=== PATIENT | female | born 1940 | race Caucasian/White ===

== ENCOUNTER 2023-06-17 19:11 | Inpatient (IN) | payer MEDICARE, OTHER, SELFPAY ==
[2023-06-17 16:00] VITALS: BP 157/73
[2023-06-17 16:05] VITALS: BMI 24.6
--- NOTE | 2023-06-17 16:24 | ED.GENMED ---
History of Present Illness
<INDU Hough Jr. Last Filed: 06/17/23 20:00>
General
Chief Complaint: Musculo-Skeletal Complaint
Source: patient
Exam Limitations: none
Time Seen by Provider: 06/17/23 16:08
Nursing documentation reviewed up to this point in time: agreed with
Travel History
Have you had any contact with someone who has COVID-19?: No
Do you have any symptoms of coronavirus? Fever > 100 degrees, chills, cough, shortness of breath, sore throat, loss of taste or smell, muscle aches, or headache?: No
History of Present Illness
History of Present Illness:
82-year-old female past medical history of previous VT, stent placement in the past, hyperlipidemia presenting to the emergency department today with concerns of a fall after tripping over something in her laundry room she lightly hit the back of
her head as well as hit her right knee denies the ambulating to the comfort. Denies significant neck pain no loss of consciousness denies taking blood thinners other than aspirin.
Past History
<INDU Hough Jr. Last Filed: 06/17/23 20:00>
Past History
ED Past Medical History: Cancer (kidney), GERD (esophogeal restrictions), Hypercholesterolemia and Other (Osteoporosis, PNA, Bowel obstruction, esophageal strictures, hiatal hernia, Multiple body fractures)
ED Past Surgical History: Appendectomy, Cholecystectomy, (X 2), Orthopedic, Urological (left kidney removed for CA) and Other (hemorrhoidectomy)
Social History
Tobacco: Former smoker
Alcohol: None
Drug: None
Personal:
Living: alone
Family History
Family History: Other
Review of Systems
<INDU Hough Jr. Last Filed: 06/17/23 20:00>
Review of Systems
Allergies reviewed?: Yes
All Other Systems: ROS reviewed and negative except as documented in HPI and ROS
Phy Exam
<Chet Montalvo Jr., PA-C - Last Filed: 06/17/23 20:00>
Physical Exam
Physical Exam:
GENERAL: Alert , in no apparent distress
EYE: pupils equal and reactive
NECK: Supple, no significant adenopathy.
ENT: o/p clr, mmm.
CARDIAC: Regular rate and rhythm .
LUNGS: Clear breath sounds bilaterally, no acute respiratory distress, no wheezes/rales/rhonchi
ABDOMEN: Soft, without focal tenderness, no r/g, no cvat
NEUROLOGICAL: Alert and oriented, no focal neuro deficits
SKIN: Warm and dry, skin intact.
MUSCULOSKELETAL: Swelling discomfort to the right knee and area just above the right knee mostly anteriorly no tenderness to the ankle or foot no tenderness to the thigh or hip., well perfused.
PSYCH: Normal and appropriate interaction.
Course
<Chet Montalvo Jr., PA-C - Last Filed: 06/17/23 20:00>
Orders/Labs/Results
Orders:
Orders
06/17/23 16:08
CT Head W/o Iv Contrast Urgent
Comment:
Reason For Exam: fall hit head
06/17/23 16:23
CT Cervical Spine W/o Iv Contr Urgent
Comment:
Reason For Exam: fall
CR Knee- Right 4 Or More View* Urgent
Comment:
Reason For Exam: knee pain
CR Leg Tibia/fibula Right 2 Vw Urgent
Comment:
Reason For Exam: right llanes pain after fall
06/17/23 18:57
Admit/Transfer Patient As Directed
Co-Sign Provider:
Level of Care: Inpatient admission
Assign to:: Medical/Surgical
Physician / Group: Melissa
Diagnosis: Right proximal tibia and fibula fracture
Reason for Hospitalization: Right proximal tibia and fibula fracture
Expected length of stay greater than two midnights?: Yes
ELOS- Estimated Length of Stay in days: 3
I certify the patient meets the requirements for IP care: Yes
06/17/23 18:58
Code Status As Directed
Resuscitation Status: Full Code
06/17/23 19:50
Complete Blood Count/With Diff Urgent
Comprehensive Metabolic Panel Urgent
INR [Prothrombin Time] Routine
PTT Routine
Vital Signs
Initial and Last Documented VS:
Initial Vital Signs
Temp Pulse Resp BP Pulse Ox
97.8 F 102 18 157/73 97
06/17/23 16:00 06/17/23 16:00 06/17/23 16:00 06/17/23 16:00 06/17/23 16:00
Last Documented Vital Signs
Temp Pulse Resp BP Pulse Ox
97.8 F 102 18 157/73 97
06/17/23 16:00 06/17/23 16:00 06/17/23 16:00 06/17/23 16:00 06/17/23 16:00
<Lawrence Keyes, DO - Last Filed: 06/17/23 18:53>
Orders/Labs/Results
Orders:
Orders
06/17/23 16:08
CT Head W/o Iv Contrast Urgent
Comment:
Reason For Exam: fall hit head
06/17/23 16:23
CT Cervical Spine W/o Iv Contr Urgent
Comment:
Reason For Exam: fall
CR Knee- Right 4 Or More View* Urgent
Comment:
Reason For Exam: knee pain
CR Leg Tibia/fibula Right 2 Vw Urgent
Comment:
Reason For Exam: right llanes pain after fall
06/17/23 18:57
Admit/Transfer Patient As Directed
Co-Sign Provider:
Level of Care: Inpatient admission
Assign to:: Medical/Surgical
Physician / Group: Melissa
Diagnosis: Right proximal tibia and fibula fracture
Reason for Hospitalization: Right proximal tibia and fibula fracture
Expected length of stay greater than two midnights?: Yes
ELOS- Estimated Length of Stay in days: 3
I certify the patient meets the requirements for IP care: Yes
06/17/23 18:58
Code Status As Directed
Resuscitation Status: Full Code
06/17/23 19:50
Complete Blood Count/With Diff Urgent
Comprehensive Metabolic Panel Urgent
INR [Prothrombin Time] Routine
PTT Routine
Vital Signs
Initial and Last Documented VS:
Initial Vital Signs
Temp Pulse Resp BP Pulse Ox
97.8 F 102 18 157/73 97
06/17/23 16:00 06/17/23 16:00 06/17/23 16:00 06/17/23 16:00 06/17/23 16:00
Last Documented Vital Signs
Temp Pulse Resp BP Pulse Ox
97.8 F 102 18 157/73 97
06/17/23 16:00 06/17/23 16:00 06/17/23 16:00 06/17/23 16:00 06/17/23 16:00
Procedures
<Chet Montalvo Jr., PA-C - Last Filed: 06/17/23 20:00>
Splinting/Sling Placement
Right Leg:
Procedure completed by: Me
Pre-splint extermity exam: neurovascular intact
Type of splint: posterior long leg
Splint material: fiberglass
Normal distal neurovascular exam?: Yes
<Chet Montalvo Jr., PA-C - Last Filed: 06/17/23 20:00>
MDM/Problems Addressed
MDM/Problems Addressed:
82-year-old female presenting to the emergency department today after a trip and fall hitting the back of her head no loss of consciousness patient taking aspirin no additional blood thinners additionally injured her right knee swelling mainly above
the right anterior knee region. Able to range at the knee does have slight decreased range of motion no ankle discomfort no hip discomfort. X-ray showing proximal tib-fib fracture Case discussed with orthopedics that recommend long-leg splint and
nonsurgical approach. CT scan of the head and neck without emergent findings chronic changes are seen but no neurologic symptoms currently. Case briefly discussed with care management patient will need an upgrade in care and will need to stay
overnight in the hospital until proper placement is secured.
<Chet Montalvo Jr., PA-C - Last Filed: 06/17/23 20:00>
*Critical Care Note
Total Time (30-74mins, 75-104mins- exclusive of procedures): Not Applicable
ED Attending Note
<Chet Montalvo Jr., PA-C - Last Filed: 06/17/23 20:00>
-
Portions of this chart may have been created with voice recognition software.� Occasional wrong word or��sound alike� substitutions may have occurred due to the inherent limitations of voice recognition software.
<Lawrence Keyes DO - Last Filed: 06/17/23 18:53>
ED Attending Note
Patient seen and examined by attending physician: Yes
I performed the substantive portion of visit, reviewed & personally made and approve the management plan that is documented in note by myself or LELE.: Yes
ED Attending Note:
Seen with PA examined independently
Slip and fall with lower extremity fracture
Discharge Plan
Departure
Patient Disposition: Admit
Date of Disposition: 06/17/23
Time of Disposition: 18:59
Admit to: Med/Surg
Admit to doctor: Damian
Presentation/result/management discussed w/ accepting MD/DO: Hospitalist
Patient with high blood pressure during this ER visit?: No
Condition: Good
Covid-19: Not Applicable
Discharge Problem:
Fracture of proximal end of right tibia, Fracture of fibula, proximal
Interventions
Interventions:
*Risk Screen - Suicide Last Done: 06/17/23 16:00
*General Assessment Last Done: 06/17/23 16:00
*Neglect/Abuse Screening Last Done: 06/17/23 16:00
ED-Musculoskeletal Assessment Last Done: 06/17/23 16:05
--- NOTE | 2023-06-17 18:06 | CM ---
Cm reviewed medical records. Patient is from [facility] assisted living. Patient has minimal supervision available at this time. Patient has not been evaluated by PT. Pending PT consult for recommendations and discharge planning.
PLAN: SNF vs. return to [place] with increased assistance.
--- NOTE | 2023-06-17 18:48 | HPS.HSE ---
Family Physician
-
Family Physician: Ethan Rendon
Chief Complaint
-
Loss of balance and mechanical fall
History of Present Illness
82-year-old female with known history of ambulatory dysfunction wheelchair and walker bound lives in assisted living, earlier in the day she was in the laundry and she said she tried to get up of the wheelchair and getting closer to the washer and
look like she is trying to put more load on the right leg because she had a recent fracture of the left leg and tried to talk around the lost balance and fall backwards and hitting right side in the back of the head to the ground, admits she never
lost consciousness and she had no dizziness or palpitation no vision change prior to the fall but she had excruciating pain below right knee immediately and was not able to get up.
Denies any fever or chill or cough or congestion.
Workup in the ER basically showed right proximal tibial and fibular liner fracture, Ortho contacted recommended no surgery and that they recommended weightbearing and splinting as well as PT OT.
Per ER note medical case manager contacted for placement but they can able to arrange.
Patient awake, alert and oriented x 3 hold appropriate conversation, mild cognitive dysfunction appreciated.
Medical History
Past Medical History
Past Medical History: Reports Other
Additional Past Medical History:
Past medical history reviewed:
History of dysphagia status post EGD and dilation
Suggest
Gastritis
Cholecystitis
Coronary artery disease status post stenting right coronary artery
This elevation [place]
History of renal cancer status post left nephrectomy
Dyslipidemia
History of inclusion body myositis
History of the left tibial fracture
Social history: Lives lives in assisted living, wheelchair and walker bound, denies smoking alcohol use.
Family history: Reviewed and noncontributory
Past Surgical History: Reports Other
Social History
Alcohol: Other
Family History
Family History: Other
Allergies / Home Medications
Allergies reflects when Allergies were last updated in [facility].
Home Medications with original date entered in [facility]
Allergy/Medication List:
Allergies
Allergy/AdvReac Type Severity Reaction Status Date / Time
No Known Allergies Allergy Verified 03/20/23 06:29
Home Medications
pantoprazole 40 mg tablet,delayed release 40 mg PO DAILY Gastrointestinal issue 12/03/18
polyethylene glycol 3350 17 gram oral powder packet 17 grams PO DAILY Constipation 12/03/18
valacyclovir 1 gram tablet 1,000 mg PO BIDPRN PRN herpes simplex infection 12/03/18
cholecalciferol (vitamin D3) 50 mcg (2,000 unit) tablet (Vitamin D3) 50 mcg PO DAILY Supplement 05/09/22
aspirin 81 mg chewable tablet 81 mg PO DAILY #30 tabs 05/12/22
atorvastatin 40 mg tablet 40 mg PO QPM #30 tabs 05/12/22
hydrocortisone 2.5 % topical cream with perineal applicator (Procto-Med HC) 1 applic GA DAILY PRN hemorrhoids #30 grams 01/14/23
acetaminophen 500 mg tablet 500 mg PO Q6H PRN mild pain 06/17/23
furosemide 20 mg tablet 20 mg PO DAILY 06/17/23
Review of Systems
-
A 12 point ROS was completed and negative except as noted: Yes
Physical Exam
Vital Signs
Vital Signs
Temp Pulse Resp BP Pulse Ox
97.8 F 102 18 157/73 97
06/17/23 16:00 06/17/23 16:00 06/17/23 16:00 06/17/23 16:00 06/17/23 16:00
Physical exam:
General: Awake, alert and oriented x3, not in distress and holds appropriate conversation.
HEENT: No active discharge, ecchymosis or bruising, moist lips, tongue and mucous membrane.
Eyes: Right conjunctival discharge was crusted, but no red conjunctiva, no nystagmus, pupils are reactive and equal
Neck:Supple, no JVD no bruit no goiter.
Respiratory: Normal AP contour and diameter, normal chest wall movement, normal respiratory effort, no respiratory distress,
Lungs: Good air entry bilaterally, no wheezing or rhonchi, no rales or crackles
Heart: S1, S2 regular, normal rate, no added sound.
Gastrointestinal: Positive bowel sounds, soft, nontender, no guarding or rigidity or organomegaly
Musculoskeletal: , Tenderness and swelling below right knee, with limitation of movement, no chest wall abnormality or tenderness. All joints and extremities have good range of motion, no muscle tenderness or any joint swelling or tenderness.
Extremities: Moderate lower extremity pitting edema, good peripheral pulses, good range of motion
Skin: Warm and dry, no ulceration, normal color.
Neurological: Awake, alert and oriented x3, mild cognitive dysfunction appreciated speech clear and comprehensive, good muscle tone, normal sensory and motor function
Psychiatric: Normal mood, normal thought and judgment, normal affect,
Physical Exam
General: Other
Laboratory Results
-
Right knee x-ray:
1. ACUTE TRANSVERSE EXTRA-ARTICULAR MILDLY COMMINUTED FRACTURE of the PROXIMAL RIGHT TIBIAL METAPHYSIS.
2. Acute comminuted nondisplaced extra-articular fracture of the neck of the proximal right fibula.
3. Mild tricompartmental osteoarthritis in the right knee.
4. Osteoporosis.
5. Severe diffuse soft tissue swelling and subcutaneous edema in the lower leg.
Cervical spine CT:
1. No CT evidence for acute fracture in the cervical spine.
2. Large partially calcified central disc herniation at C5/C6 causing MODERATE SPINAL CORD COMPRESSION and CENTRAL CANAL STENOSIS. Moderate bilateral neural foraminal narrowing at C5/C6.
3. Mild spinal cord compression and central canal stenosis at C3/C4 and C4/C5.
4. Severe discogenic degenerative disease at C4/C5, C5/C6, and C7/T1.
5. Severe left-sided facet joint arthrosis at C3/C4 and severe right-sided facet joint arthrosis at C3/C4 and C4/C5.
6. Moderate kyphosis at C4/C5.
7. 3-4 mm anterolistheses of C3 on C4 and C4 on C5.
8. Multiple solid nodules in the right lobe of the thyroid gland.
Head CT:
1. No CT evidence for acute intracranial hemorrhage, calvarial fracture, or scalp soft tissue hematoma.
2. Mild diffuse symmetric cerebral and cerebellar volume loss.
3. Mild periventricular white matter leukoaraiosis in the frontal lobes.
Data Reviewed
-
Diagnostic Radiology: Image Personally Visualized and interpreted, Discussed with Nurse and Discussed with Patient
CT Scan: Image Personally Visualized and interpreted, Discussed with Nurse and Discussed with Patient
Impression/Plan
-
IMPRESSION:
82-year-old female lives in assisted living, presented after she had a mechanical fall getting off the wheelchair to get into a washer and dryer, and workup showed line near comminuted fracture of proximal tibia and fibula requiring no surgery per
Ortho.
Mechanical fall
Right proximal tibia and fibular fracture
Ambulatory dysfunction
Right I conjunctivitis
Fracture of the left tibia
Coronary artery disease status post stent in RCA
PLAN:
Discussed with the ER they splinting the right leg per recommendation of Ortho
PT OT
Fall precaution
biostatistics manager on board and likely need to be placed from personal assist to full correction for now.
Pain medication
Continue home medication including Lasix and Protonix.
Monitor vital sign.
Lab works ordered and pending
Her son's orthopedic back surgery mechanics.
All discussed with the patient in detail expressed understanding
CODE STATUS of full code
DVT prophylaxis will do heparin subcu for now
[2023-06-17 19:57] LABS: % Basophils 0.4 % (0-2); % Eosinophils 1.5 % (0-6); % Immature Granulocytes 0.3 % (0-0.5); % Lymphocytes 21.1 % (20.5-51.1); % Monocytes 6.4 % (1.7-9.3); % Neutrophils 70.3 % (42.2-75.2); Absolute Basophils 0.1 10^3/uL (0-0.2); Absolute Eosinophils 0.2 10^3/uL (0-0.7); Absolute Lymphocytes 2.6 10^3/uL (1.2-3.4); Absolute Monocytes 0.8 10^3/uL (0.1-0.6); Absolute Neutrophils 8.6 10^3/uL (1.4-6.5); Hematocrit 35.4 % (37.0-47.0); Hemoglobin 11.7 g/dL (12.0-16.0); Mean Corp Hgb Conc. 33.1 g/dL (33.0-37.0); Mean Corpuscular Hgb 28.7 pg (27.0-31.0); Mean Corpuscular Volume 86.8 fL (81.0-99.0); Mean Platelet Volume 9.2 fL (7.4-10.4); Nucleated Red Blood Cells % 0 %; Platelet Count 317 10^3/uL (130-400); Red Blood Cell Count 4.08 10^6/uL (4.20-5.40); Red Cell Dist. Width 13.5 % (11.5-14.5); White Blood Cell Count 12.3 10^3/uL (4.8-10.8)
[2023-06-17 20:08] LABS: ALT (SGPT) 18 U/L (0-35); AST (SGOT) 25 U/L (14-36); Albumin 3.8 g/dl (3.5-5.0); Alkaline Phosphatase 71 U/L (38-126); Blood Urea Nitrogen 18 mg/dl (7-17); Calcium 9.9 mg/dl (8.4-10.2); Carbon Dioxide 26 mmol/L (22-30); Chloride 108 mmol/L (98-107); Estimated Creatinine Clearance 62 ml/min; Glucose 116 mg/dl (70-99); Potassium 3.7 mmol/L (3.5-5.1); Sodium 141 mmol/L (135-145); Total Bilirubin 0.3 mg/dl (0.2-1.3); Total Protein 6.8 g/dl (6.3-8.2); eGFR > 60.00
[2023-06-17 20:35] VITALS: BP 118/78
[2023-06-17] MEDS: TYLENOL 500 MG PO (20:46)
[2023-06-17 21:39] VITALS: BP 148/68
[2023-06-17] MEDS: ROXICODONE 5 MG PO (22:02)
[2023-06-17 22:10] LABS: Magnesium 2.1 mg/dl (1.6-2.3)
[2023-06-17] MEDS: HEPARIN 5000 UNITS SC (23:01)
[2023-06-17 23:44] VITALS: BP 124/72
--- NOTE | 2023-06-18 01:46 | W.PN.UPDATE ---
Update Note
Progress Note Update
Erythromycin ointment order placed by request of admitting physician for eye infection.
[2023-06-18] MEDS: ROXICODONE 5 MG PO ×2 (04:08→22:41)
[2023-06-18] MEDS: TYLENOL 500 MG PO (06:30)
[2023-06-18 06:50] VITALS: BP 125/59
--- NOTE | 2023-06-18 08:58 | W.PN.UPDATE ---
Update Note
Progress Note Update
Patient seen on AM rounds. Full consult note to follow.
Patient with nondisplaced proximal tibial and fibula fractures. These can be managed non-operatively. Continue with immobilization in long leg splint. Non-weight bearing to right lower extremity. Recommend outpatient follow up in 1-2 weeks for
repeat x-rays and continued management.
[2023-06-18] MEDS: HEPARIN 5000 UNITS SC ×2 (09:05→17:05)
[2023-06-18] MEDS: PROTONIX 40 MG PO (09:06)
[2023-06-18] MEDS: LOW STRENGTH ASPIRIN 81 MG PO (09:06)
[2023-06-18] MEDS: MIRALAX 17 GRAMS PO (09:06)
[2023-06-18] MEDS: ERYTHROMYCIN 0.5% OPHTHALMIC OINTMENT 1 APPLIC OPHTH ×4 (09:07→22:41)
[2023-06-18] MEDS: VITAMIN D3 (cholecalciferol) 50 MCG PO (09:14)
[2023-06-18] MEDS: LASIX 20 MG PO (09:14)
[2023-06-18] MEDS: REFRESH EYE DROPS (PF) 1 DROPS OPHTH (09:22)
--- NOTE | 2023-06-18 11:35 | CON.ORTHO ---
Addendum entered and electronically signed by Manjit So MD 06/18/23 17:07:
I evaluated the patient at bedside and agree with the above note. 82-year-old female with a nondisplaced fracture of the right proximal tibia after sustaining a fall from standing transferring out of the wheelchair in the laundry room. She has a
history of left proximal tibia fracture treated with ORIF by Dr. Ruiz. I discussed with the patient indications for surgical treatment options for nonoperative treatment. Shared decision was to proceed with nonoperative treatment. She will
follow-up in 2 weeks for x-rays and we can transition either to a long-leg cast or a hinged knee brace with the ability to lock in extension. She will be nonweightbearing on the right lower extremity.
Original Note:
Consultation
-
Date/Time Consultation Requested: unknown
Date/Time Consultation Performed: 06/18/2023; 829
Requesting Provider: unknown
Performing Provider: Kristen Duarte PA-C / Dr. Manjit So
Reason for Consultation: right proximal tibia and fibula fracture
Consultation - Orthopedics
History
Ms. Kahn is an 82 year old female with PMH of CAD s/p stenting, STEMI, renal CA s/p nephrectomy, HLD, inclusion body myositis and recent left tibia fracture. She reports she was doing laundry when her leg gave out on her causing her to fall. She
reports this happens frequently secondary to her myositis, and she has sustained frequent fractures as a result. She utilizes a wheelchair and walker at baseline. She is currently in assisted living following her left tibia fracture. She endorses
pain primarily below her knee, as well as about her medial ankle. She was placed in a long leg splint in the ED which appears well padded and well fitted.
Allergies / Home Medications
Allergy/AdvReac Type Severity Reaction Status Date / Time
No Known Allergies Allergy Verified 03/20/23 06:29
�Medication �Instructions �Recorded
pantoprazole 40 mg tablet,delayed 40 mg PO DAILY Gastrointestinal 12/03/18
release issue
polyethylene glycol 3350 17 gram 17 grams PO DAILY Constipation 12/03/18
oral powder packet
valacyclovir 1 gram tablet 1,000 mg PO BIDPRN PRN herpes 12/03/18
simplex infection
cholecalciferol (vitamin D3) 50 50 mcg PO DAILY Supplement 05/09/22
mcg (2,000 unit) tablet (Vitamin
D3)
aspirin 81 mg chewable tablet 81 mg PO DAILY #30 tabs 05/12/22
atorvastatin 40 mg tablet 40 mg PO QPM #30 tabs 05/12/22
hydrocortisone 2.5 % topical cream 1 applic [place] DAILY PRN hemorrhoids 01/14/23
with perineal applicator #30 grams
(Procto-Med HC)
acetaminophen 500 mg tablet 500 mg PO Q6H PRN mild pain 06/17/23
furosemide 20 mg tablet 20 mg PO DAILY 06/17/23
polyvinyl alcohol 1.4 % eye drops 1 drp 4-8XD 06/17/23
Vital Signs / Lab Results
Temp Pulse Resp BP Pulse Ox
99.1 F 76 17 125/59 94
06/18/23 06:50 06/18/23 09:14 06/18/23 06:50 06/18/23 09:14 06/18/23 08:45
06/17/23 21:13
06/17/23 21:13
XR Right Knee IMPRESSION:
1. ACUTE TRANSVERSE EXTRA-ARTICULAR MILDLY COMMINUTED FRACTURE of the PROXIMAL RIGHT TIBIAL METAPHYSIS.
2. Acute comminuted nondisplaced extra-articular fracture of the neck of the proximal right fibula.
3. Mild tricompartmental osteoarthritis in the right knee.
4. Osteoporosis.
5. Severe diffuse soft tissue swelling and subcutaneous edema in the lower leg.
Directed exam of the right lower extremity reveals long leg splint in place. Patient able to wiggle toes. Sensation intact to light touch above and below splint. Good color of toes. MAGALY taken down to reveal skin. No apparent wounds or lesions.
Diffuse tenderness about the medial malleolus.
Assessment / Plan
Right proximal tibia and fibula fracture
--Unfortunately, Ms. Kahn sustained proximal tibia and fibula fractures in her fall. Thankfully, these are non-displaced and can be managed non-operatively. She should continue with immobilization in her long leg splint. The splint appears well
padded and well molded, but should she continue to have pain about her medial malleolus, we can reapply the splint. I do believe her medial ankle pain is related to a sprain as she was diffusely tender about the area. Non-weight bearing to RLE. We
will see her in the office for repeat evaluation and new x-rays in 2 weeks. We will transition her into either a cast or hinged knee brace at that visit. Continue pain control per primary.
--- NOTE | 2023-06-18 11:54 | W.PN.HOSP.TC ---
Today's Communication/Plan
-
Monitor ankle pain
Await rehab evaluation
Pain control
Assessment / Plan
Assessment / Plan
IMPRESSION:
82-year-old female lives in assisted living, presented after she had a mechanical fall getting off the wheelchair to get into a washer and dryer, and workup showed line near comminuted fracture of proximal tibia and fibula requiring no surgery per
Ortho.
Mechanical fall
Right proximal tibia and fibular fracture
Ambulatory dysfunction
R ankle pain ?due sprain vs. splint
PT OT
Fall precaution
Pain medication
Per ortho-nonop. Continue with immobilization in splint. Nonweightbearing to right lower extremity.
Patient with ankle pain could be due to sprain. If no improvement discussed with Ortho may need re- splinting
Per pt, Patient's son Sher Kahn orthopedic surgeon outside [place] wants to discuss care with orthopedic team for patient. Phone number provided to PA.
History of dysphagia status post EGD and dilation
Monitor diet
Gastritis
Continue PPI
Coronary artery disease status post stenting right coronary artery
Continue aspirin, statin, Lasix
History of renal cancer status post left nephrectomy
Creatinine looks at baseline compared to 06/01
Dyslipidemia
On statin
History of inclusion body myositis
Suspected anxiety d/o
All discussed with the patient in detail expressed understanding
CODE STATUS of full code
DVT prophylaxis will do heparin subcu for now
PT/OT-may require SNF vs. more care at [facility].
Anticipated Discharge: Within 24 hours
Subjective/Interval History
-
Date of Service: June 18, 2023
states of R ankle pain
Objective Data
-
Vital Signs:
Vital Signs
Temp Pulse Resp BP Pulse Ox
99.1 F 76 17 125/59 94
06/18/23 06:50 06/18/23 09:14 06/18/23 06:50 06/18/23 09:14 06/18/23 08:45
I&O
06/17/23 06/18/23 06/19/23
06:59 06:59 06:59
Intake Total 100 / 100
Output Total 150 / 150
Balance -50 / -50
Physical Exam
-
General: Well Developed, Well Nourished, No Apparent Distress and Comfortable
HEENT: Moist Mucous Membranes, Nose Appears Normal and Ears Appear Normal
Respiratory: Clear to Auscultation and Non Labored Respirations; Negative Accessory Resp Muscle Use
Cardiac: Regular Rhythm and S1/S2; Negative Murmur, Rub or JVD
GI: Soft, Nontender, Nondistended and Normal Bowel Sounds
Musculoskeletal: No Edema and Edema, Right Lower Extrem (RLE in splint. R toes warm to touch. Sensation intaact. )
Skin: Warm, Dry, Rash and Ulcers
Neuro: Awake, Alert, Oriented, AO x 3 and Nonfocal/Grossly Intact
Psych: Calm and Intact Judgement/Insight
Data Reviewed
-
Total Time Spent with Patient (in minutes): 55
[2023-06-18 12:25] VITALS: BP 130/68; PULSE 85; O2SAT 99
[2023-06-18 13:55] VITALS: BP 130/68; PULSE 85; O2SAT 99
[2023-06-18 15:00] VITALS: BP 141/66
[2023-06-18] MEDS: LIPITOR 40 MG PO (17:06)
[2023-06-18 23:00] VITALS: BP 143/68
[2023-06-19] MEDS: HEPARIN 5000 UNITS SC ×4 (00:04→23:41)
[2023-06-19 07:00] VITALS: BP 93/63
--- NOTE | 2023-06-19 08:03 | W.PN.UPDATE ---
Update Note
Progress Note Update
Ms. Kahn is resting comfortably in bed this morning. She does endorse waxing and waning pain in her heel and ankle today. She reports this was present prior to her fall, and is relieved with elevation and her current pain medications. She reports
she is otherwise doing well.
Directed exam of the right lower extremity reveals long leg splint in place. Patient able to wiggle toes. Sensation intact to light touch above and below splint. Good color of toes.
--Patient continues pain intermittent pain in her right heel. I did order a dedicated foot XR to rule out any bony injury, but I suspect this is related to her baseline right foot pain.
--Continue immobilization in splint. Continue NWB to RLE.
--Follow up outpatient in 2 weeks for repeat x-rays.
--Orthopedics will sign off for now. Please reach out with any additional questions or concerns.
[2023-06-19] MEDS: ERYTHROMYCIN 0.5% OPHTHALMIC OINTMENT 1 APPLIC OPHTH ×4 (08:55→23:41)
[2023-06-19] MEDS: PROTONIX 40 MG PO (08:56)
[2023-06-19] MEDS: LOW STRENGTH ASPIRIN 81 MG PO (08:56)
[2023-06-19] MEDS: MIRALAX 17 GRAMS PO (08:56)
[2023-06-19] MEDS: VITAMIN D3 (cholecalciferol) 50 MCG PO (08:56)
[2023-06-19] MEDS: LASIX 20 MG PO (09:15)
--- NOTE | 2023-06-19 10:48 | W.PN.HOSP.TC ---
Today's Communication/Plan
-
CM for placement
await R foot xray
pain control
bowel regimen
Assessment / Plan
Assessment / Plan
IMPRESSION:
82-year-old female lives in assisted living, presented after she had a mechanical fall getting off the wheelchair to get into a washer and dryer, and workup showed line near comminuted fracture of proximal tibia and fibula requiring no surgery per
Ortho.
Mechanical fall
Right proximal tibia and fibular fracture
Ambulatory dysfunction
R ankle pain ?due sprain vs. splint. Xray ordered.
PT OT recs SNF.
Fall precaution
Pain medication
Per ortho-nonop. Continue with immobilization in splint. Nonweightbearing to right lower extremity.
Patient with ankle pain could be due to sprain. If no improvement discussed with Ortho may need re- splinting
Per pt, Patient's son Sher Kahn orthopedic surgeon outside [place] wants to discuss care with orthopedic team for patient. Phone number provided to PA.
History of dysphagia status post EGD and dilation
Monitor diet
Gastritis
Continue PPI
Coronary artery disease status post stenting right coronary artery
Continue aspirin, statin, Lasix
History of renal cancer status post left nephrectomy
Creatinine looks at baseline compared to 06/01
Dyslipidemia
On statin
History of inclusion body myositis
History of left lower extremity tibia fracture s/p internal plate/screw fixation
Suspected anxiety d/o
All discussed with the patient in detail expressed understanding
CODE STATUS of full code
DVT prophylaxis will do heparin subcu for now
PT/OT-may require SNF vs. more care at [facility].
Anticipated Discharge: Within 24 hours
Subjective/Interval History
-
Date of Service: June 19, 2023
States of intermittent R heel pain
tolerating diet
feeling better after breakfast/coffee
Objective Data
-
Vital Signs:
Vital Signs
Temp Pulse Resp BP Pulse Ox
98.0 F 81 18 110/72 97
06/19/23 07:00 06/19/23 09:15 06/19/23 07:00 06/19/23 09:15 06/19/23 07:00
I&O
06/18/23 06/19/23 06/20/23
06:59 06:59 06:59
Intake Total 100 / 100 780 / 780
Output Total 150 / 150
Balance -50 / -50 780 / 780
Physical Exam
-
General: Well Developed, Well Nourished, No Apparent Distress and Comfortable
HEENT: Moist Mucous Membranes, Nose Appears Normal and Ears Appear Normal
Respiratory: Clear to Auscultation and Non Labored Respirations; Negative Accessory Resp Muscle Use
Cardiac: Regular Rhythm and S1/S2; Negative Murmur, Rub or JVD
GI: Soft, Nontender, Nondistended and Normal Bowel Sounds
Musculoskeletal: No Edema and Edema, Right Lower Extrem (RLE in splint. R toes warm to touch. Sensation intact. Moving R foot all toes. )
Skin: Warm, Dry, Rash and Ulcers
Neuro: Awake, Alert, Oriented, AO x 3 and Nonfocal/Grossly Intact
Psych: Calm and Intact Judgement/Insight
[2023-06-19] MEDS: TYLENOL 500 MG PO (12:29)
--- NOTE | 2023-06-19 12:52 | PN.CDI ---
CDI
- -
CDI:
Physician Documentation Request
Admit Date: 06/17/23 19:11
Dear Doctor Val,
Patient presented to ED after fall. Was determined to have right proximal tibia and fibular fracture.
Xray of right knee report states 'The bones appear diffusely osteoporotic'
Please provide further specificity regarding the diagnosis of fracture:
Etiology
Traumatic
Pathologic due to osteoporosis
Pathologic due to other disease (please specify)
Due to a combination of trauma and a pathological process
but the trauma alone would not likely have been sufficient
to cause the fracture
Use of terms such as suspected, likely, concern for, or probable (associated with a specific diagnosis that is being evaluated, monitored, or treated as if it exists) are acceptable and can be coded in the inpatient setting, when documented at the
time of discharge.
Thank you,
Maureen Ponce RN, BSN
CDI Specialist
tiger text
Please use your independent medical judgment in providing your response.
--- NOTE | 2023-06-19 14:59 | CM ---
Spoke with attending who stated that patient needs SNF. Reviewed chart. PT indication if for SNF placement.
Plan: Case management will continue to follow and assist with discharge planning. SNF.
[2023-06-19 15:20] VITALS: BP 143/76; PULSE 107; O2SAT 98
[2023-06-19 15:25] VITALS: BP 130/68; PULSE 85; O2SAT 99
[2023-06-19 15:30] VITALS: BP 103/71
[2023-06-19] MEDS: LIPITOR 40 MG PO (16:25)
[2023-06-19] MEDS: ROXICODONE 5 MG PO ×2 (16:28→23:46)
[2023-06-19 23:12] VITALS: BP 123/60
[2023-06-20 07:00] VITALS: BP 130/63
[2023-06-20] MEDS: TYLENOL 500 MG PO (08:19)
[2023-06-20] MEDS: ERYTHROMYCIN 0.5% OPHTHALMIC OINTMENT 1 APPLIC OPHTH ×2 (08:20→14:11)
[2023-06-20] MEDS: LASIX 20 MG PO (08:20)
[2023-06-20] MEDS: MIRALAX 17 GRAMS PO (08:21)
[2023-06-20] MEDS: PROTONIX 40 MG PO (08:21)
[2023-06-20] MEDS: HEPARIN 5000 UNITS SC ×2 (08:21→16:38)
[2023-06-20] MEDS: VITAMIN D3 (cholecalciferol) 50 MCG PO (08:21)
[2023-06-20] MEDS: LOW STRENGTH ASPIRIN 81 MG PO (08:21)
--- NOTE | 2023-06-20 10:46 | W.PN.HOSP.TC ---
Addendum entered and electronically signed by Unruly Neal MD 06/20/23 17:25:
More than 30 minutes spent in discharge including
Final examination of the patient
Summarizing hospital stay
Instructions for continuing care to all relevant caregivers
Preparation of discharge records, prescriptions, and referral forms
Total time spent (in minutes): 42
Original Note:
Today's Communication/Plan
-
await placement
Assessment / Plan
Assessment / Plan
IMPRESSION:
82-year-old female lives in assisted living, presented after she had a mechanical fall getting off the wheelchair to get into a washer and dryer, and workup showed line near comminuted fracture of proximal tibia and fibula requiring no surgery per
Ortho.
Mechanical fall
Right proximal tibia and fibular fracture likely 2/2 traumatic fall
Ambulatory dysfunction
R ankle pain -xray negative.
PT OT recs SNF.
Fall precaution
Pain medication
Per ortho-nonop. Continue with immobilization in splint. Nonweightbearing to right lower extremity.
Heel pain improved-chronic per pt.
Per pt, Patient's son Sher Kahn orthopedic surgeon outside [place] wants to discuss care with orthopedic team for patient. Phone number provided to PA.
History of dysphagia status post EGD and dilation
Monitor diet
Chronic cervical radiculopathy
CT cervical spine noted
OP orthopedic f/u-sees [facility] orthopedic.
Gastritis
Continue PPI
Coronary artery disease status post stenting right coronary artery
Continue aspirin, statin, Lasix
History of renal cancer status post left nephrectomy
Creatinine looks at baseline compared to 06/01
Dyslipidemia
On statin
History of inclusion body myositis
History of left lower extremity tibia fracture s/p internal plate/screw fixation
Suspected anxiety d/o
All discussed with the patient in detail expressed understanding
CODE STATUS of full code
DVT prophylaxis will do heparin subcu for now
PT/OT-SNF. CM aware. Await placement.
Anticipated Discharge: Today
Subjective/Interval History
-
Date of Service: June 20, 2023
Feeling better
states pain is controlled
Objective Data
-
Vital Signs:
Vital Signs
Temp Pulse Resp BP Pulse Ox
98.3 F 70 16 130/63 99
06/20/23 07:00 06/20/23 07:00 06/20/23 07:00 06/20/23 07:00 06/20/23 07:00
I&O
06/19/23 06/20/23 06/21/23
06:59 06:59 06:59
Intake Total 780 / 780 840 / 840
Balance 780 / 780 840 / 840
Physical Exam
-
General: Well Developed, Well Nourished, No Apparent Distress and Comfortable
HEENT: Moist Mucous Membranes, Nose Appears Normal and Ears Appear Normal
Respiratory: Clear to Auscultation and Non Labored Respirations; Negative Accessory Resp Muscle Use
Cardiac: Regular Rhythm and S1/S2; Negative Murmur, Rub or JVD
GI: Soft, Nontender, Nondistended and Normal Bowel Sounds
Musculoskeletal: No Edema and Edema, Right Lower Extrem (RLE in splint. R toes warm to touch. Sensation intact. Moving R foot all toes. )
Skin: Warm, Dry, Rash and Ulcers
Neuro: Awake, Alert, Oriented, AO x 3 and Nonfocal/Grossly Intact
Psych: Calm and Intact Judgement/Insight
--- NOTE | 2023-06-20 11:09 | CM ---
Addendum entered by Akash Lopez 06/20/23 14:51:
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 [facility] director hardware is aware of bulk picker time.
Addendum entered by Aksah Lopez 06/20/23 13:11:
[facility] has accepted the pt for admission today. Both p[tushar and her daughter are aware, expressed their agreement.
Revised PASRR completed and faxed to [facility] and original PASRR will go with discharge package. .
to arrange ambulance BLS. [facility] completed and left with [facility] nursing report: [phone]
Discharge instructions fax: [phone]
D/C plan: [facility].
Original Note:
CM following re: discharge planning.
Reviewed pt's chart, met with pt and spoke to pt's daughter Geena over the phone to update on discharge planning progress
According to MD pt is medically stable to be discharged today. Pt is aware, expressed her agreement. IMM reviewed, placed in chart, pt has a copy.
PT and OT have been recommending short term rehab. CM discussed it with the pt. Pt stated she lives in an independent apartment at [facility] and was able to ambulate independently with a walker.
Pt asked to talk to her daughter Geena to discuss SNFs options.
CM spoke to pt's daughter Geena and following SNFs preferred: [facility], [facility], [facility], [facility]. A referral to above SNFs made. Awaiting for determination.
D/C plan: preferred SNF. Awaiting for determination from preferred requested by family SNFs.
CM will follow to assist pt with discharge to a preferred SNF.
[2023-06-20] MEDS: ROXICODONE 5 MG PO ×2 (11:20→16:37)
[2023-06-20 12:26] VITALS: BP 103/57; PULSE 69; O2SAT 96
[2023-06-20 12:29] VITALS: BP 103/57; PULSE 69; O2SAT 96
--- NOTE | 2023-06-20 12:57 | W.DCSUMMARY ---
Discharge Summary
Discharge Data
Date of Admission: 06/17/23
Date of Discharge: 06/20/23
-
Pending Results: No
Hospital Course
83 female past medical history of dysphagia status post EGD dilatation, chronic cervical radiculopathy, gastritis, CAD status post stent, history of renal cancer status post nephrectomy, hyperlipidemia, myositis who is presenting after mechanical
fall. Patient was found to have a right proximal tibia and fibula fracture. Orthopedic evaluated patient. Patient was also complaining of right heel pain and was evaluated by wound care. Wound care recommendation were made. Orthopedic
recommended immobilization in splint and nonweightbearing status. Patient was eval by PT and OT. [facility] be discharged to [facility].
Discharge Plan
-
Patient Disposition: Penitentiary/SNF
Discharge Diagnosis/Procedures: Mechanical fall
Right proximal tibia and fibular fracture likely 2/2 traumatic fall
Ambulatory dysfunction
Condition: Fair
Diet: As tolerated
Activity: With assistance
Driving Restrictions: No driving
Activity Restrictions/Additional Instructions:
Continue immobilization in splint. Continue Non weight bearing to RLE.
R heel DTI-swab with no sting barrier wipe (allow to dry), apply foam dressing, change daily. Remove and reapply R leg splint daily for heel skin assessment and wound care.
Elevate heels off bed with pillows and/or air chair cushions.
air mattress.
Pressure redistributing chair cushion (i.e. air chair cushion).
Follow up with orthopedic surgeon.
Follow up with wound care center.
Referrals:
Ethan Rendon DO [Family Provider] - in less than 1 week
Manjit So MD [Active] - in one to two weeks
Prescriptions:
New
oxycodone 5 mg Tablet
5 mg PO BIDPRN PRN (Reason: mod-severe pain) 4 Days Qty: 7 0RF
Continued
polyethylene glycol 3350 17 GRAMS powder in packet
17 grams PO DAILY
valacyclovir 1,000 MG tablet
1,000 mg PO BIDPRN PRN (Reason: herpes simplex infection)
pantoprazole 40 MG tablet,delayed release (DR/EC)
40 mg PO DAILY
cholecalciferol (vitamin D3) [Vitamin D3] 50 mcg (2,000 unit) Tablet
50 mcg PO DAILY
atorvastatin 40 mg Tablet
40 mg PO QPM Qty: 30 11RF
aspirin 81 mg Tablet,Chewable
81 mg PO DAILY Qty: 30 6RF
hydrocortisone [Procto-Med HC] 2.5 % cream with perineal applicator
1 applic [place] DAILY PRN (Reason: hemorrhoids) Qty: 30 0RF
acetaminophen 500 mg Tablet
500 mg PO Q6H PRN (Reason: mild pain)
furosemide 20 mg Tablet
20 mg PO DAILY
polyvinyl alcohol 1.4 % Drops
1 drp 4-8XD
Discharge Orders:
Discharge Patient (As Directed); Ordered 06/20/23
Ordered By: Unruly Neal
Discharge Date and Time
Discharge Date/Time: 06/20/23 17:18
Print Language: YORUBA
[2023-06-20 15:00] VITALS: BP 128/56
--- NOTE | 2023-06-20 16:03 | WOUNDNOTE ---
[facility] RN Note: Patient seen per request of JAMAL Bartholomew to evaluate R heel. Patient stated she's had R heel pain prior to admission and is currently painful. Janell confirmed with ortho PA Kristen Duarte that nursing can remove splint for skin assessment.
JAMAL Jeffrey assisted with removing R leg splint. R heel with purple ecchymotic area (DTI) with surrounding erythema. No sting barrier wipe and silicone border foam dressing applied. Padded posterior heel section of R leg splint with several layers of
cast padding. R long leg splint reapplied with help from JAMAL Jeffrey. Patient verbalized R heel feels better. Heels off bed with air chair cushion. Patient's L ischium with pinpoint dry scab with 3cm blanchable redness. Sacrum blanchable mild red and
intact. Skin on L heel blanchable red. Foam dressing applied to L heel by JAMAL Jeffrey. [place] texted Kristen Duarte, ortho PA and Dr. Neal re: patient has R heel DTI. Dr. Neal approved local care and nursing can remove splint during daily R heel wound
care. Kristen Duarte plans to check R leg splint prior to ambulance potato picker. Updated JAMAL Maciel. t/c [facility] and spoke with nurse Socorro and gave skin care report and recommend air mattress. Socorro will follow up re: air mattress. Discharge instructions
updated.
== END 2023-06-20 17:18 | DRG 563 ==
LOC: 2 SOUTH 19:11
PROVIDERS: Physician Assistant; ADMITTING PHYSICIAN Internal Medicine; ATTENDING PHYSICIAN Hospitalist; CONSULT PHYSICIAN Orthopaedic Surgery; EMERGENCY PHYSICIAN Emergency Medicine; FAMILY PHYSICIAN Family Medicine
DX: S82.191A Other fracture of upper end of right tibia, initial encounter for closed fracture (principal); S82.839A Other fracture of upper and lower end of unspecified fibula, initial encounter for closed fracture; M17.11 Unilateral primary osteoarthritis, right knee; M81.0 Age-related osteoporosis without current pathological fracture; H10.9 Unspecified conjunctivitis; I25.10 Atherosclerotic heart disease of native coronary artery without angina pectoris; Z95.5 Presence of coronary angioplasty implant and graft; Z79.82 Long term (current) use of aspirin; K29.70 Gastritis, unspecified, without bleeding; E78.00 Pure hypercholesterolemia, unspecified; M54.12 Radiculopathy, cervical region
CPT/HCPCS: 29505; 70450; 72125; 73564; 73590; 73630; 80053; 83735; 85025; 85610; 85730; 87070; 97110; 97163; 97167; 97530; 97535; 99285

== ENCOUNTER → 2023-06-26 10:06 | Outpatient (REF) | payer MEDICARE, OTHER, SELFPAY ==
[2023-06-26 10:26] LABS: % Basophils 0.3 % (0-2); % Eosinophils 3.5 % (0-6); % Immature Granulocytes 0.3 % (0-0.5); % Lymphocytes 31.8 % (20.5-51.1); % Monocytes 9.4 % (1.7-9.3); % Neutrophils 54.7 % (42.2-75.2); Absolute Eosinophils 0.3 10^3/uL (0-0.7); Absolute Lymphocytes 2.3 10^3/uL (1.2-3.4); Absolute Monocytes 0.7 10^3/uL (0.1-0.6); Hematocrit 29.6 % (37.0-47.0); Hemoglobin 9.6 g/dL (12.0-16.0); Mean Corp Hgb Conc. 32.4 g/dL (33.0-37.0); Mean Corpuscular Hgb 28.2 pg (27.0-31.0); Mean Corpuscular Volume 87.1 fL (81.0-99.0); Mean Platelet Volume 9.7 fL (7.4-10.4); Nucleated Red Blood Cells % 0 %; Platelet Count 374 10^3/uL (130-400); Red Cell Dist. Width 13.2 % (11.5-14.5); White Blood Cell Count 7.2 10^3/uL (4.8-10.8)
[2023-06-26 11:06] LABS: Blood Urea Nitrogen 14 mg/dl (7-17); Carbon Dioxide 27 mmol/L (22-30); Chloride 102 mmol/L (98-107); Glucose 91 mg/dl (70-99); Potassium 4.5 mmol/L (3.5-5.1); Sodium 137 mmol/L (135-145); eGFR > 60.00
== END ==
LOC: OLABP 10:06
PROVIDERS: ATTENDING PHYSICIAN Family Medicine
DX: M54.12 Radiculopathy, cervical region (principal); R13.10 Dysphagia, unspecified; R26.2 Difficulty in walking, not elsewhere classified; M79.604 Pain in right leg
CPT/HCPCS: 36415; 80048; 85025

== ENCOUNTER → 2023-07-02 09:16 | Outpatient (REF) | payer OTHER, MEDICARE, SELFPAY ==
[2023-07-02 11:53] LABS: Ionized Calcium 1.42 mMOL/L (1.15-1.33)
[2023-07-02 11:57] LABS: % Basophils 0.5 % (0-2); % Eosinophils 3.3 % (0-6); % Immature Granulocytes 0.7 % (0-0.5); % Lymphocytes 38.3 % (20.5-51.1); % Monocytes 9.5 % (1.7-9.3); % Neutrophils 47.7 % (42.2-75.2); Absolute Eosinophils 0.2 10^3/uL (0-0.7); Absolute Lymphocytes 2.3 10^3/uL (1.2-3.4); Absolute Monocytes 0.6 10^3/uL (0.1-0.6); Absolute Neutrophils 2.9 10^3/uL (1.4-6.5); Hematocrit 32.4 % (37.0-47.0); Hemoglobin 10.1 g/dL (12.0-16.0); Mean Corp Hgb Conc. 31.2 g/dL (33.0-37.0); Mean Corpuscular Hgb 27.9 pg (27.0-31.0); Mean Corpuscular Volume 89.5 fL (81.0-99.0); Mean Platelet Volume 9.3 fL (7.4-10.4); Nucleated Red Blood Cells % 0 %; Platelet Count 432 10^3/uL (130-400); Red Blood Cell Count 3.62 10^6/uL (4.20-5.40); Red Cell Dist. Width 13.6 % (11.5-14.5)
[2023-07-02 14:01] LABS: ALT (SGPT) 13 U/L (0-35); AST (SGOT) 19 U/L (14-36); Albumin 3.3 g/dl (3.5-5.0); Alkaline Phosphatase 112 U/L (38-126); Blood Urea Nitrogen 17 mg/dl (7-17); Calcium 10.9 mg/dl (8.4-10.2); Carbon Dioxide 28 mmol/L (22-30); Chloride 108 mmol/L (98-107); Glucose 94 mg/dl (70-99); Potassium 4.3 mmol/L (3.5-5.1); Sodium 138 mmol/L (135-145); Total Bilirubin 0.5 mg/dl (0.2-1.3); Total Protein 6.2 g/dl (6.3-8.2); eGFR > 60.00
== END ==
LOC: OLABP 09:16
PROVIDERS: ATTENDING PHYSICIAN Family Medicine
DX: R26.2 Difficulty in walking, not elsewhere classified (principal); M79.604 Pain in right leg; I25.10 Atherosclerotic heart disease of native coronary artery without angina pectoris; K29.70 Gastritis, unspecified, without bleeding; M54.12 Radiculopathy, cervical region; R13.10 Dysphagia, unspecified; F41.9 Anxiety disorder, unspecified; E78.5 Hyperlipidemia, unspecified
CPT/HCPCS: 36415; 80053; 82330; 85025

== ENCOUNTER → 2023-07-19 10:31 | Outpatient (REF) | payer OTHER, MEDICARE, SELFPAY ==
[2023-07-19 12:16] LABS: % Basophils 0.4 % (0-2); % Eosinophils 4.4 % (0-6); % Immature Granulocytes 0.2 % (0-0.5); % Lymphocytes 51.2 % (20.5-51.1); % Monocytes 10.3 % (1.7-9.3); % Neutrophils 33.5 % (42.2-75.2); Absolute Eosinophils 0.2 10^3/uL (0-0.7); Absolute Lymphocytes 2.8 10^3/uL (1.2-3.4); Absolute Monocytes 0.6 10^3/uL (0.1-0.6); Absolute Neutrophils 1.8 10^3/uL (1.4-6.5); Hematocrit 33.3 % (37.0-47.0); Hemoglobin 10.6 g/dL (12.0-16.0); Mean Corp Hgb Conc. 31.8 g/dL (33.0-37.0); Mean Corpuscular Hgb 28.2 pg (27.0-31.0); Mean Corpuscular Volume 88.6 fL (81.0-99.0); Nucleated Red Blood Cells % 0 %; Platelet Count 283 10^3/uL (130-400); Red Blood Cell Count 3.76 10^6/uL (4.20-5.40); Red Cell Dist. Width 14.6 % (11.5-14.5); White Blood Cell Count 5.5 10^3/uL (4.8-10.8)
[2023-07-19 12:18] LABS: Ionized Calcium 1.39 mMOL/L (1.15-1.33)
[2023-07-19 12:32] LABS: ALT (SGPT) 12 U/L (0-35); AST (SGOT) 22 U/L (14-36); Albumin 3.4 g/dl (3.5-5.0); Alkaline Phosphatase 93 U/L (38-126); Blood Urea Nitrogen 19 mg/dl (7-17); Calcium 10.7 mg/dl (8.4-10.2); Carbon Dioxide 25 mmol/L (22-30); Chloride 109 mmol/L (98-107); Glucose 75 mg/dl (70-99); Potassium 4.4 mmol/L (3.5-5.1); Sodium 140 mmol/L (135-145); Total Bilirubin 0.7 mg/dl (0.2-1.3); Total Protein 6.2 g/dl (6.3-8.2); eGFR > 60.00
== END ==
LOC: OLABP 10:31
PROVIDERS: ATTENDING PHYSICIAN Family Medicine
DX: I25.10 Atherosclerotic heart disease of native coronary artery without angina pectoris (principal); K29.70 Gastritis, unspecified, without bleeding; M54.12 Radiculopathy, cervical region; R13.10 Dysphagia, unspecified; F41.9 Anxiety disorder, unspecified; E78.5 Hyperlipidemia, unspecified; R26.2 Difficulty in walking, not elsewhere classified
CPT/HCPCS: 80053; 82330; 85025

== ENCOUNTER → 2023-09-14 12:28 | Outpatient (REF) | payer MEDICARE, OTHER, SELFPAY | LOC: WOUND 12:28 | PROVIDERS: ATTENDING PHYSICIAN Surgery; FAMILY PHYSICIAN Family Medicine | DX: L89.610 Pressure ulcer of right heel, unstageable (principal); S82.141A Displaced bicondylar fracture of right tibia, initial encounter for closed fracture; I73.9 Peripheral vascular disease, unspecified; I87.2 Venous insufficiency (chronic) (peripheral); K76.89 Other specified diseases of liver; K21.9 Gastro-esophageal reflux disease without esophagitis; G72.41 Inclusion body myositis [IBM]; Z90.5 Acquired absence of kidney; I25.10 Atherosclerotic heart disease of native coronary artery without angina pectoris; X58.XXXA Exposure to other specified factors, initial encounter | CPT/HCPCS: 99214 ==

== ENCOUNTER → 2023-09-14 13:26 | Outpatient (REF) | payer MEDICARE, OTHER, SELFPAY | LOC: RAD 13:26 | PROVIDERS: ATTENDING PHYSICIAN Surgery; FAMILY PHYSICIAN Family Medicine | DX: L89.610 Pressure ulcer of right heel, unstageable (principal) | CPT/HCPCS: 73650 ==

== ENCOUNTER → 2023-09-21 13:43 | Outpatient (REF) | payer MEDICARE, OTHER, SELFPAY | LOC: WOUND 13:43 | PROVIDERS: ATTENDING PHYSICIAN Surgery; FAMILY PHYSICIAN Family Medicine | DX: L89.610 Pressure ulcer of right heel, unstageable (principal); S82.141A Displaced bicondylar fracture of right tibia, initial encounter for closed fracture; I73.9 Peripheral vascular disease, unspecified; I87.2 Venous insufficiency (chronic) (peripheral); K76.89 Other specified diseases of liver; K21.9 Gastro-esophageal reflux disease without esophagitis; G72.41 Inclusion body myositis [IBM]; I25.10 Atherosclerotic heart disease of native coronary artery without angina pectoris; X58.XXXA Exposure to other specified factors, initial encounter; Z90.5 Acquired absence of kidney | CPT/HCPCS: 10140 ==

== ENCOUNTER → 2023-10-05 14:18 | Outpatient (REF) | payer MEDICARE, OTHER, SELFPAY | LOC: WOUND 14:18 | PROVIDERS: ATTENDING PHYSICIAN Surgery; FAMILY PHYSICIAN Family Medicine | DX: L89.610 Pressure ulcer of right heel, unstageable (principal); L89.309 Pressure ulcer of unspecified buttock, unspecified stage; I87.2 Venous insufficiency (chronic) (peripheral) | CPT/HCPCS: 99213 ==

== ENCOUNTER → 2023-10-22 14:24 | Outpatient (REF) | payer MEDICARE, OTHER, SELFPAY | LOC: WOUND 14:24 | PROVIDERS: ATTENDING PHYSICIAN Surgery; FAMILY PHYSICIAN Family Medicine | DX: L89.610 Pressure ulcer of right heel, unstageable (principal); L89.309 Pressure ulcer of unspecified buttock, unspecified stage; S82.141A Displaced bicondylar fracture of right tibia, initial encounter for closed fracture; I73.9 Peripheral vascular disease, unspecified; I87.2 Venous insufficiency (chronic) (peripheral); K76.89 Other specified diseases of liver; K21.9 Gastro-esophageal reflux disease without esophagitis; G72.41 Inclusion body myositis [IBM]; I25.10 Atherosclerotic heart disease of native coronary artery without angina pectoris; Z90.5 Acquired absence of kidney; X58.XXXA Exposure to other specified factors, initial encounter | CPT/HCPCS: 99213 ==

== ENCOUNTER → 2023-11-05 13:11 | Outpatient (REF) | payer MEDICARE, OTHER, SELFPAY | LOC: WOUND 13:11 | PROVIDERS: ATTENDING PHYSICIAN Surgery; FAMILY PHYSICIAN Family Medicine | DX: L89.610 Pressure ulcer of right heel, unstageable (principal); L89.309 Pressure ulcer of unspecified buttock, unspecified stage; S82.141A Displaced bicondylar fracture of right tibia, initial encounter for closed fracture; I73.9 Peripheral vascular disease, unspecified; I87.2 Venous insufficiency (chronic) (peripheral); K76.89 Other specified diseases of liver; K21.9 Gastro-esophageal reflux disease without esophagitis; G72.41 Inclusion body myositis [IBM]; I25.10 Atherosclerotic heart disease of native coronary artery without angina pectoris; Z90.5 Acquired absence of kidney; X58.XXXA Exposure to other specified factors, initial encounter | CPT/HCPCS: 97597 ==

== ENCOUNTER → 2023-11-23 13:44 | Outpatient (REF) | payer MEDICARE, OTHER, SELFPAY | LOC: WOUND 13:44 | PROVIDERS: ATTENDING PHYSICIAN Surgery; FAMILY PHYSICIAN Family Medicine | DX: L89.613 Pressure ulcer of right heel, stage 3 (principal); S82.141A Displaced bicondylar fracture of right tibia, initial encounter for closed fracture; K21.9 Gastro-esophageal reflux disease without esophagitis; I73.9 Peripheral vascular disease, unspecified; I87.2 Venous insufficiency (chronic) (peripheral); K76.89 Other specified diseases of liver; G72.41 Inclusion body myositis [IBM]; Z90.5 Acquired absence of kidney; I25.10 Atherosclerotic heart disease of native coronary artery without angina pectoris; X58.XXXA Exposure to other specified factors, initial encounter | CPT/HCPCS: 11042 ==

== ENCOUNTER → 2023-12-07 13:47 | Outpatient (REF) | payer MEDICARE, OTHER, SELFPAY | LOC: WOUND 13:47 | PROVIDERS: ATTENDING PHYSICIAN Surgery; FAMILY PHYSICIAN Family Medicine | DX: L89.613 Pressure ulcer of right heel, stage 3 (principal); S82.141S Displaced bicondylar fracture of right tibia, sequela; X58.XXXS Exposure to other specified factors, sequela; K21.9 Gastro-esophageal reflux disease without esophagitis; I73.9 Peripheral vascular disease, unspecified; I87.2 Venous insufficiency (chronic) (peripheral); K76.89 Other specified diseases of liver; G72.41 Inclusion body myositis [IBM]; Z90.5 Acquired absence of kidney; I25.10 Atherosclerotic heart disease of native coronary artery without angina pectoris | CPT/HCPCS: 11042 ==

== ENCOUNTER → 2023-12-24 11:22 | Outpatient (REF) | payer MEDICARE, OTHER, SELFPAY | LOC: WOUND 11:22 | PROVIDERS: ATTENDING PHYSICIAN Surgery; FAMILY PHYSICIAN Family Medicine | DX: L89.613 Pressure ulcer of right heel, stage 3 (principal); S82.141A Displaced bicondylar fracture of right tibia, initial encounter for closed fracture; K21.9 Gastro-esophageal reflux disease without esophagitis; I73.9 Peripheral vascular disease, unspecified; I87.2 Venous insufficiency (chronic) (peripheral); K76.89 Other specified diseases of liver; G72.41 Inclusion body myositis [IBM]; I25.10 Atherosclerotic heart disease of native coronary artery without angina pectoris; Z90.5 Acquired absence of kidney; X58.XXXA Exposure to other specified factors, initial encounter | CPT/HCPCS: 99213 ==

== ENCOUNTER 2023-12-28 06:19 | Day surgery (SDC) | payer MEDICARE, OTHER, SELFPAY ==
[2023-12-28 10:15] VITALS: BP 147/79
[2023-12-28 10:33] VITALS: BMI 22.3
[2023-12-28 12:35] VITALS: BP 112/63
[2023-12-28 12:45] VITALS: BP 122/68
[2023-12-28 13:00] VITALS: BP 125/67
[2023-12-28 14:02] VITALS: BP 120/66
== END 2023-12-28 15:00 ==
LOC: SDS 06:19
PROVIDERS: ATTENDING PHYSICIAN Internal Medicine
DX: R13.10 Dysphagia, unspecified (principal); K44.9 Diaphragmatic hernia without obstruction or gangrene
CPT/HCPCS: 43235

== ENCOUNTER 2024-01-06 04:28 | Inpatient (IN) | payer MEDICARE, OTHER, SELFPAY ==
[2024-01-05 20:43] VITALS: BMI 27.5
[2024-01-05 20:48] VITALS: BP 144/85
[2024-01-05 21:03] VITALS: BP 123/64
[2024-01-05 22:14] VITALS: BP 96/50
--- NOTE | 2024-01-05 22:15 | ED.GENMED ---
History of Present Illness
General
Chief Complaint: Change in Mental Status
Source: patient and ambulance crew
Exam Limitations: none
Time Seen by Provider: 01/05/24 21:36
Nursing documentation reviewed up to this point in time: agreed with
History of Present Illness
History of Present Illness:
This a pleasant 83-year-old female presents to the emergency department from [facility] for change in mental status. According to EMS report, patient has been acting 'lethargic 'per family. Patient is being treated at the wound
care center for chronic left lower extremity heel ulcer.
Past History
Past History
ED Past Medical History: Cancer (kidney), GERD (esophogeal restrictions), Hypercholesterolemia and Other (Osteoporosis, PNA, Bowel obstruction, esophageal strictures, hiatal hernia, Multiple body fractures)
ED Past Surgical History: Appendectomy, Cholecystectomy, (X 2), Orthopedic, Urological (left kidney removed for CA) and Other (hemorrhoidectomy)
Social History
Tobacco: Former smoker
Alcohol: None
Drug: None
Personal:
Living: alone
Family History
Family History: Other
Review of Systems
Review of Systems
Allergies reviewed?: Yes
Other source history: ambulance crew and transfer record
All Other Systems: ROS reviewed and negative except as documented in HPI and ROS
: Reports frequency
Psychiatric: Reports anxiety
Phy Exam
General Physical Exam
General Presentation: well appearing and mild distress
General age: appears stated age
General Skin: warm and dry
General Habitus: normal
General Mental: alert
General Hydration: appears well hydrated
ENT Exam
ENT Exam: EOMI, pharynx normal, neck supple and normocephalic
Eye Exam
Eye Exam: PERRL, cornea clear and conjunctiva normal
Cardiovascular Exam
Cardiovascular Exam: regular rate/rhythm
Pulmonary Exam
Pulmonary Exam: lungs clear, no respiratory distress, no rales, no crackles, no rhonchi, no stridor, no wheezing and no cough
Gastrointestinal Exam
Gastrointestinal Exam: normal bowel sounds, non tender, soft, no organomegaly, no pulsatile mass and non distended
Neurological Exam
Neurological Exam: alert, oriented x3, no motor deficits and speech normal
Musculoskeletal Exam
Musculoskeletal Exam: full ROM, no edema and other (Left heel wound with purulent drainage)
Skin Exam
Skin Exam: normal color, warm/dry, no rash and no petechia
Psychiatric Exam
Psychiatric Exam: normal mood/affect
Sepsis
Sepsis Screening
Sepsis Assessment: Sepsis
Sepsis Screen
Sepsis Screen: Sepsis
Date: 01/06/24
Time: 02:26
Course
Orders/Labs/Results
Orders:
Orders
01/05/24 20:52
Electrocardiogram (*1) Urgent
Reason for Study: Other
Other Reason for Exam: Possible Sepsis
Cardiac Monitoring- Treatment ONCE
EKG- Treatment ONCE
IV Insert/Care/Rem.- Treatment PRN
Straight cath- Treatment ONCE
O2 Therapy [RESP] Urgent
Titrate/Wean O2 to maintain O2 sat greater than (%): 93
Special Instructions: TO MAINTAIN CONTINUOUS O2 SATS > OR = 93%
Pulse Ox/cont/shift [RESP] Urgent
Quantity: 1
Special Instructions: CONTINUOUS
01/05/24 21:36
Straight cath- Treatment ONCE
Acetaminophen [Tylenol] 650 mg PO NOW STA
01/05/24 22:19
CR Chest - 2 Views Urgent
Comment:
Reason For Exam: fever
CR Foot - Right Min 3 Views Urgent
Reason For Exam: foot wound
01/05/24 22:31
Complete Blood Count/With Diff Urgent
Comprehensive Metabolic Panel Urgent
Lactic Acid Q4H
Comment: ON ICE, CANCEL 2ND ORDER IF FIRST LACTIC ACID LEVEL <2
Urinalysis Reflex To Culture Urgent
Date Specimen was Collected: 01/05/24
Time Specimen was Collected: 22:29
01/05/24 22:36
0.9% Sodium Chloride 1000 ml [Nss] 2,000 ml IV BOLUS
01/05/24 23:34
COVID-19 Antigen Urgent
Source: Nasal Swab
Influenza A+B Rapid Molecular Urgent
DL Source: Nasal Swab
Specimen Description:
01/06/24 00:29
CefTRIAXone [Rocephin] 2,000 mg IV NOW STA
01/06/24 00:57
Sterile Water [Sterile Water For Injection] 20 ml .ROUTE .STK-MED
01/06/24 01:40
Vancomycin [Vancocin] 2,000 mg 0.9% Sodium Chloride 500 ml [Nss] 500 ml IV NOW
Abnormal Lab Results
01/05/24
22:31
WBC 13.4 H 10^3/uL
(4.8-10.8)
Hgb 11.4 L g/dL
(12.0-16.0)
Hct 34.6 L %
(37.0-47.0)
MCHC 32.9 L g/dL
(33.0-37.0)
RDW 14.7 H %
(11.5-14.5)
Abs Immat Gran (auto) 0.1 H 10^3/uL
(0-0.05)
Absolute Neuts (auto) 10.2 H 10^3/uL
(1.4-6.5)
Absolute Monos (auto) 1.0 H 10^3/uL
(0.1-0.6)
Neutrophils % 76.3 H %
(42.2-75.2)
Lymphocytes % 15.3 L %
(20.5-51.1)
Creatinine 0.5 L mg/dL
(0.6-1.0)
Glucose 102 H mg/dl
(70-99)
01/05/24 22:31
01/05/24 22:31
Vital Signs
Initial and Last Documented VS:
Initial Vital Signs
Temp Pulse Resp BP Pulse Ox
100.5 F H 120 22 144/85 98
01/05/24 20:48 01/05/24 20:48 01/05/24 20:48 01/05/24 20:48 01/05/24 20:48
Last Documented Vital Signs
Temp Pulse Resp BP Pulse Ox
98.9 F 92 25 104/50 94
01/06/24 00:00 01/06/24 01:45 01/06/24 01:00 01/06/24 01:00 01/06/24 01:45
MDM/Problems Addressed
Differential Diagnosis Includes:
Wound infection, pneumonia, UTI
MDM/Problems Addressed:
83 female chronic wound presents with skilled nursing with confusion and fever.
Chronic conditions affecting care: HTN and Other (Hyperlipidemia)
*Radiology
Radiology exam reviewed: all reviewed NAD by ED Provider
*Pulse Oximetry
Patient hypoxic: no
*Supervisor [employer] Interpretation
Rate: normal
Interpretation: normal
*Critical Care Note
Total Time (30-74mins, 75-104mins- exclusive of procedures): Not Applicable
ED Attending Note
-
Portions of this chart may have been created with voice recognition software.� Occasional wrong word or��sound alike� substitutions may have occurred due to the inherent limitations of voice recognition software.
Discharge Plan
Departure
Patient Disposition: Admit
Date of Disposition: 01/06/24
Time of Disposition: 00:28
Admit to: Telemetry
Presentation/result/management discussed w/ accepting MD/DO: Hospitalist
Discharge Problem:
Wound infection, Fever, Altered mental status
Prescriptions:
No Action
polyethylene glycol 3350 17 GRAMS powder in packet
17 grams PO DAILY
valacyclovir 1,000 MG tablet
1,000 mg PO BIDPRN PRN (Reason: herpes simplex infection)
pantoprazole 40 MG tablet,delayed release (DR/EC)
40 mg PO DAILY
cholecalciferol (vitamin D3) [Vitamin D3] 50 mcg (2,000 unit) Tablet
50 mcg PO DAILY
atorvastatin 40 mg Tablet
40 mg PO QPM Qty: 30 11RF
aspirin 81 mg Tablet,Chewable
81 mg PO DAILY Qty: 30 6RF
hydrocortisone [Procto-Med HC] 2.5 % cream with perineal applicator
1 applic [place] DAILY PRN (Reason: hemorrhoids) Qty: 30 0RF
acetaminophen 500 mg Tablet
500 mg PO Q6H PRN (Reason: mild pain)
furosemide 20 mg Tablet
20 mg PO DAILY
polyvinyl alcohol 1.4 % Drops
1 drp 4-8XD
Referrals:
UNKNOWN - PT DOES,NOT KNOW [Family Provider] -
Interventions
Interventions:
*Risk Screen - Suicide Last Done: 01/05/24 20:48
*General Assessment Last Done: 01/05/24 20:48
*Neglect/Abuse Screening Last Done: 01/05/24 20:48
*ED COVID-19 Vaccine History Last Done: 01/06/24 00:32
ED- Neurological Assessment Last Done: 01/06/24 00:27
ED Swallowing Screen Last Done: 01/06/24 00:27
Discharge Date and Time
Print Language: UPPER SORBIAN
[2024-01-05] MEDS: TYLENOL 650 MG PO (22:38)
[2024-01-05] MEDS: NSS 2000 IV (22:38)
[2024-01-05 22:41] LABS: % Basophils 0.3 % (0-2); % Eosinophils 0.4 % (0-6); % Immature Granulocytes 0.4 % (0-0.5); % Lymphocytes 15.3 % (20.5-51.1); % Monocytes 7.3 % (1.7-9.3); % Neutrophils 76.3 % (42.2-75.2); Absolute Eosinophils 0.1 10^3/uL (0-0.7); Absolute Immature Granulocytes 0.1 10^3/uL (0-0.05); Absolute Neutrophils 10.2 10^3/uL (1.4-6.5); Hematocrit 34.6 % (37.0-47.0); Hemoglobin 11.4 g/dL (12.0-16.0); Mean Corp Hgb Conc. 32.9 g/dL (33.0-37.0); Mean Corpuscular Volume 81.8 fL (81.0-99.0); Mean Platelet Volume 8.8 fL (7.4-10.4); Nucleated Red Blood Cells % 0 %; Platelet Count 277 10^3/uL (130-400); Red Blood Cell Count 4.23 10^6/uL (4.20-5.40); Red Cell Dist. Width 14.7 % (11.5-14.5); White Blood Cell Count 13.4 10^3/uL (4.8-10.8)
[2024-01-05 22:47] LABS: Urine Albumin Negative (Neg - Trace); Urine Bilirubin Negative (Negative); Urine Character Clear (Clear); Urine Color Straw; Urine Glucose Negative (Negative); Urine Ketone Negative (Negative); Urine Leukocyte Negative (Negative); Urine Nitrite Negative (Negative); Urine Occult Blood Negative (Negative); Urine Specific Gravity 1.015 (<1.030); Urine Urobilinogen Negative (Neg - 1+)
[2024-01-05 22:53] VITALS: BP 128/56
[2024-01-05 22:59] LABS: ALT (SGPT) 18 U/L (0-35); AST (SGOT) 24 U/L (14-36); Alkaline Phosphatase 84 U/L (38-126); Blood Urea Nitrogen 16 mg/dl (7-17); Calcium 10.2 mg/dl (8.4-10.2); Carbon Dioxide 27 mmol/L (22-30); Chloride 103 mmol/L (98-107); Glucose 102 mg/dl (70-99); Lactic Acid 1.2 mmol/L (0.7-2.0); Potassium 4.4 mmol/L (3.5-5.1); Sodium 140 mmol/L (135-145); Total Bilirubin 0.7 mg/dl (0.2-1.3); Total Protein 7.1 g/dl (6.3-8.2); eGFR > 60.00
[2024-01-05 23:30] VITALS: BP 103/53
[2024-01-05 23:46] VITALS: BP 106/54
[2024-01-06] VITALS (16 sets, daily range): BP systolic 98–161; BP diastolic 48–102; PULSE 84–122; O2SAT 96; BMI 26.7
[2024-01-06 00:04] LABS: COVID-19 Antigen Negative (Negative)
[2024-01-06] MEDS: ROCEPHIN 2000 MG IV (01:17)
[2024-01-06] MEDS: VANCOCIN 540 MG IV (01:50)
--- NOTE | 2024-01-06 03:36 | HPS.HSE ---
Family Physician
-
Family Physician: NOT KNOW UNKNOWN - PT DOES
Chief Complaint
-
Patient brought to the emergency department from [facility] for complaint of change in mental status.
History of Present Illness
Patient is a 83-year-old female with a past medical history significant for CAD status post PCI, GERD, hyperlipidemia, myositis of unknown etiology, right-sided ankle injury for which she is on convalescence and developed right foot ulcer over the
last 2 months presents to the emergency department with recurrent complaint of change in mental status from the wound care facility.
However to me the patient did not complain of any changes in mental status. She was alert and oriented x 3. She had a normal insight. She was able to carry on appropriate conversation regarding health and general matters. Patient stated that
over the last few days she has had multiple symptoms which included fatigue, increased sleepiness, decreased appetite and low p.o. intake. She reported that she does have and nasal congestion with postnasal drip and clearance of phlegm. She
reports some facial purulent nasal congestion as well. She denied productive cough. She denied any shortness of breath or dyspnea on exertion. She denied any rash. She does report a chronic lower extremity wound that has not healed over the last
2 months. She is unable to ambulate secondary to the wound. She is also unable to get physical therapy due to the wound. In the emergency department after admission the patient started to complain of a left groin pain as well.
In the Emergency Department she was afebrile blood pressure was 100/66 she was satting 96% on room air. ECG showed sinus tachycardia at rate of [address] or T wave changes. Chemistries showed no acute abnormalities. CBC showed a white
count of 13.4 K but otherwise unremarkable. UA was negative COVID test was negative. She had x-rays of the ankle. There is no obvious abnormality to me. Chest x-ray is unchanged from prior and shows no acute infiltrates compared to prior.
Medical History
Past Medical History
Past Medical History: Reports CAD (Status post PCI), GERD and Hypercholesterolemia
Past Surgical History: Reports Appendectomy, Cholecystectomy, Orthopedic (Left Tib/Fib) and Urological (Status post left nephrectomy)
Social History
Tobacco: Former Smoker
Alcohol: None
Drug: None
Personal:
Living: Alone
Employment: Retired
Family History
Family History: Not pertinent
Allergies / Home Medications
Allergies reflects when Allergies were last updated in [employer].
Home Medications with original date entered in [employer]
Allergy/Medication List:
Allergies
Allergy/AdvReac Type Severity Reaction Status Date / Time
No Known Allergies Allergy Verified 12/28/23 10:04
Home Medications
pantoprazole 40 mg tablet,delayed release 40 mg PO DAILY Gastrointestinal issue 12/03/18
polyethylene glycol 3350 17 gram oral powder packet 17 grams PO DAILY Constipation 12/03/18
valacyclovir 1 gram tablet 1,000 mg PO BIDPRN PRN herpes simplex infection 12/03/18
cholecalciferol (vitamin D3) 50 mcg (2,000 unit) tablet (Vitamin D3) 50 mcg PO DAILY Supplement 05/09/22
aspirin 81 mg chewable tablet 81 mg PO DAILY #30 tabs 05/12/22
atorvastatin 40 mg tablet 40 mg PO QPM #30 tabs 05/12/22
hydrocortisone 2.5 % topical cream with perineal applicator (Procto-Med HC) 1 applic DC DAILY PRN hemorrhoids #30 grams 01/14/23
acetaminophen 500 mg tablet 500 mg PO Q6H PRN mild pain 06/17/23
furosemide 20 mg tablet 20 mg PO DAILY 06/17/23
polyvinyl alcohol 1.4 % eye drops 1 drp 4-8XD 06/17/23
Review of Systems
-
History Source: Patient
Constitutional: Reports Fatigue
EENT: Reports Sore Throat and Runny Nose
Respiratory: Reports No Symptoms
Cardiac: Reports No Symptoms
Abdomen/GI: Reports No Symptoms
: Reports Frequency
Musculoskeletal: Reports Edema
Skin: Reports Rash
Neurological: Reports Weakness
Endocrine: Reports No Symptoms
Hematologic/Lymphatic: Reports No Symptoms
Psych: Reports No Symptoms
Physical Exam
Vital Signs
Vital Signs
Temp Pulse Resp BP Pulse Ox
98.9 F 98 25 100/66 96
01/06/24 00:00 01/06/24 02:45 01/06/24 01:00 01/06/24 02:00 01/06/24 02:45
Physical Exam
General: No Apparent Distress and Poor Appetite
HEENT: NormoCephalic, Anicteric, Moist mucous membranes, Atraumatic and PERRLA
Respiratory: Clear
Cardiac: S1/S2, Regular Rhythm, Tachycardia and Murmur
Breast: Deferred by me
GI: Soft, Non Tender, Non Distended and Normal Bowel Sounds
Rectal: Deferred by Provider
Genito-urinary: Clear Urine and No costovertebral tender
Musculoskeletal: No Clubbing, No Cyanosis, Edema, Left Lower Extremity (1+) and Edema, Right Lower Extremity (1+)
Skin: Warm and Decubitus Ulcers (right heel ulcer, superficial exudate, no surrounding erythema, induration or tenderness to palpation)
Neuro: AO x 3
Hematologic/Lymphatic: No Lymphadenopathy
Psych: Calm
Laboratory Results
-
01/05/24 22:31
01/05/24 22:31
Laboratory Results
Lactic Acid Cancelled 01/06/24 01:00
Total Bilirubin 0.7 mg/dl (0.2-1.3) 01/05/24 22:31
AST 24 U/L (14-36) 01/05/24 22:31
ALT 18 U/L (0-35) 01/05/24 22:31
Alkaline Phosphatase 84 U/L (38-126) 01/05/24 22:31
Data Reviewed
-
Diagnostic Radiology: Image Personally Visualized and interpreted
Lab Data: Labs Reviewed by me
Old Records: Reviewed
Impression/Plan
-
IMPRESSION:
Patient who has a history of CAD, myositis, chronic lower extremity swelling, recent 2-month history of a nonhealing right heel decubitus wound/ulcer who presented to the emergency department from wound care with complaint of altered mental status.
However patient has no altered mental status. However she has this nonhealing wound which could be infected without overt signs of infection otherwise. She also complained of urinary frequency with unremarkable urinalysis. She has decreased
appetite and somewhat lobe repeat with tachycardia suggestive of some mild dehydration despite bilateral lower extremity swelling. No known history of CHF despite CAD.
PLAN:
1. Wound - decubitus/heel ulcer on right heel. Not overtly infected. Patient does not have diabetes. No neuropathy. Does have h/o CAD and may have peripheral vascular disease. Pulses intact. ABX started in ED. Has not been on abx at home.
- admit to med/surg
- ceftriaxone for now
- check mrsa swab
- wound care consult
- keep feet elevated
- xray does not show clear deep tissue infetion or foreign body, check esr/crp, if +, mri of the foot
- jonah u/s
- id consult
2. Weakness - Generalized weakness versus dehydration. Also more sleepy
- check tsh
- orthostatics
- u/a is bland
- pt eval
3. CAD
- continue asp/statin
4. GERD
- continue ppi
5. Leg Swelling - chronic according to patient and no dgx of chf. Echo from last year with normal ef, no wall motion changes or valvular disease
- elevate legs
- lasix if not orthostatics
- may need compression devices
DVT PPX - lovenox sq
Code Status - full code
[2024-01-06] MEDS: TORADOL IV (05:21)
[2024-01-06] MEDS: TORADOL 15 MG IV (05:58)
[2024-01-06 06:25] LABS: % Basophils 0.2 % (0-2); % Eosinophils 0.9 % (0-6); % Immature Granulocytes 0.4 % (0-0.5); % Lymphocytes 14.5 % (20.5-51.1); % Monocytes 6.1 % (1.7-9.3); % Neutrophils 77.9 % (42.2-75.2); Absolute Eosinophils 0.1 10^3/uL (0-0.7); Absolute Lymphocytes 1.5 10^3/uL (1.2-3.4); Absolute Monocytes 0.6 10^3/uL (0.1-0.6); Absolute Neutrophils 8.1 10^3/uL (1.4-6.5); Hematocrit 33.2 % (37.0-47.0); Hemoglobin 10.6 g/dL (12.0-16.0); Mean Corp Hgb Conc. 31.9 g/dL (33.0-37.0); Mean Corpuscular Hgb 27.5 pg (27.0-31.0); Mean Corpuscular Volume 86.2 fL (81.0-99.0); Mean Platelet Volume 9.1 fL (7.4-10.4); Nucleated Red Blood Cells % 0 %; Platelet Count 243 10^3/uL (130-400); Red Blood Cell Count 3.85 10^6/uL (4.20-5.40); Red Cell Dist. Width 14.7 % (11.5-14.5); White Blood Cell Count 10.4 10^3/uL (4.8-10.8)
[2024-01-06 06:26] LABS: Blood Urea Nitrogen 12 mg/dl (7-17); Calcium 9.5 mg/dl (8.4-10.2); Carbon Dioxide 25 mmol/L (22-30); Chloride 109 mmol/L (98-107); Estimated Creatinine Clearance 69 ml/min; Glucose 93 mg/dl (70-99); Potassium 3.9 mmol/L (3.5-5.1); Sodium 144 mmol/L (135-145); eGFR > 60.00
[2024-01-06 06:44] LABS: Erythrocyte Sed Rate 71 mm/hour (0-20)
[2024-01-06 07:01] LABS: TSH Reflex To Free T4 1.06 uIU/ml (0.47-4.68)
--- NOTE | 2024-01-06 08:56 | W.PN.UPDATE ---
Update Note
Progress Note Update
Non-billable addendum
Patient admitted with suspected change in mental status, difficulty breathing per family, concerns for aspiration with esophageal stricture found on recent EGD, dysphagia with concern for a primary neuromyopathy process. Also RLE heel wound with
concerns for infection with elevated ESR/CRP.
Xray without osteo. Cannot have MRI due to LLE Metal.
CXR: mild left basilar opacification suggesting subsegmental atelectasis and/or pneumonia
Currently in good spirits. No complaints. VSS
Plan:
Speech therapy evaluation
Unasyn for suspected aspiration
Wound care/ID evaluation
trend ESR/CRP
If further concern of deeper lying heel infection, would pursue CT.
d/w daughter Jordan (an [employer]).
[2024-01-06] MEDS: TYLENOL 500 MG PO (09:28)
--- NOTE | 2024-01-06 10:35 | PTCARENOTE ---
Pt arrived to 407-2 at this time. Pt AAOx3, forgetful at times, med/surg admission, stating that she has 3/10 tenderness of right heel due to wound. Elevating bilateral legs on pillows. See shift assessment for further detail. Oriented pt to ,
call veras, fall risk, pressure ulcer prevention, reporting concerns, plan of care- pt verbalized understanding. Bed alarm in place for safety, call veras within reach.
--- NOTE | 2024-01-06 10:51 | PTCARENOTE ---
Patient unable to stand, standing orthos not completed.
[2024-01-06] MEDS: LOW STRENGTH ASPIRIN 81 MG PO (12:18)
[2024-01-06] MEDS: UNASYN IV ×2 (12:18→17:54)
[2024-01-06] MEDS: PROTONIX 40 MG PO (12:18)
[2024-01-06] MEDS: MIRALAX 17 GRAMS PO (12:19)
[2024-01-06] MEDS: FLUSH (NSS) 2 FLUSH IV (12:20)
--- NOTE | 2024-01-06 17:45 | CON.ID ---
Consultation
-
Date/Time Consultation Requested: 01/06/2024 0858
Date/Time Consultation Performed: 01/06/2024 1620
Requesting Provider: Freida Rocha
Performing Provider: Dr. Sultana
Reason for Consultation: Right heel ulcer
Chief Complaint / Past History
History of Present Illness
Janell Kahn is an 83-year-old female being evaluated by infectious disease regarding left heel ulcer. History is obtained from chart review along with patient interview.
The patient was brought to the emergency room on 01/04 from rehab following a reported change in mental status. According to notes, family had noted that patient was acting lethargic.
Patient has a history of right proximal tibia and fibula fracture in June 2023 and reportedly had been been placed in a splint which may have ultimately resulted in the development of a heel ulcer. She has been followed by wound care in regards to
that ulcer.
Currently, she notes that there has been some discomfort in the heel with dressing changes. She is not sure whether there has been any increase in drainage or spreading erythema.
At presentation to the ER she was noted to have leukocytosis which quickly improved. She has noted to have an elevated ESR and CRP, and there is concern for possible underlying osteomyelitis.
Past History
Additional Past Medical History:
Kidney cancer
GERD
Esophageal stricture
Dyslipidemia
Osteoporosis
Hx PNA
Hx bowel obstruction
Myositis
Additional Past Surgical History:
Appendectomy
Cholecystectomy
x 2
Left nephrectomy
Allergy History:
No Known Allergies Allergy (Verified 12/28/23 10:04)
Medications Reviewed: Yes
Current Antibiotics:
Unasyn
Social History
Tobacco: Former Smoker
Alcohol: None
Drug: None
Personal:
Living: Long-Term
Employment: Not Employed
Family History
Family History: Not Pertinent
Review of Systems
Vital Signs
Temp Pulse Resp BP Pulse Ox
97.8 F 75 14 114/56 96
01/06/24 15:42 01/06/24 16:38 01/06/24 15:42 01/06/24 16:38 01/06/24 15:42
Physical Exam
Physical Exam
Constitutional: No Acute Distress, Comfortable and Non-toxic
Eyes: No Conjunctival Hemorrhage and Sclera Anicteric
Oral: No Thrush and Ulcers
Cardiovascular: Regular Rate and S1/S2; Negative S3/S4
Pulmonary: Clear; Negative Wheezes, Rales or Rhonchi
Gastrointestinal: Soft, Non Tender and Non Distended
Extremities: Edema and Erythema (minimal); Negative Cyanosis
Skin: Warm and Dry; Negative Rash or Jaundice
Wound: Other (Right heel ulceration noted with significant slough in the base. Mild periwound erythema. Rolled edges noted.)
Neurological: Awake and Alert
Psychological: Calm
.
Lab / Diagnostic Study Results
01/06/24 06:06
01/06/24 06:06
Abs Immat Gran (auto) 0.0 10^3/uL (0-0.05) 01/06/24 06:06
Absolute Neuts (auto) 8.1 10^3/uL (1.4-6.5) H 01/06/24 06:06
Absolute Lymphs (auto) 1.5 10^3/uL (1.2-3.4) 01/06/24 06:06
Absolute Monos (auto) 0.6 10^3/uL (0.1-0.6) 01/06/24 06:06
Absolute Basos (auto) 0.0 10^3/uL (0-0.2) 01/06/24 06:06
Immature Gran % 0.4 % (0-0.5) 01/06/24 06:06
Neutrophils % 77.9 % (42.2-75.2) H 01/06/24 06:06
Lymphocytes % 14.5 % (20.5-51.1) L 01/06/24 06:06
Monocytes % 6.1 % (1.7-9.3) 01/06/24 06:06
Eosinophils % 0.9 % (0-6) 01/06/24 06:06
Basophils % 0.2 % (0-2) 01/06/24 06:06
ESR 71 mm/hour (0-20) H 01/06/24 06:06
Lactic Acid Cancelled 01/06/24 01:00
C-Reactive Protein 88.50 mg/L (0.0-10.00) H 01/06/24 06:06
Microbiology Results
Micro:
01/06/24 10:17 MRSA Screen - Pending
Nose
01/05/24 23:34 Influenza Types A & B (LESLYE) - Final
Nasal Swab Negative for Influenza A & B, NAAT
Negative results must be combined with clinical observations
and patient history.
Nucleic Acid Amplification test (NAAT)performed on the
[employer] platform.
Imaging:
01/05/2024 x-ray right foot: No fracture, dislocation or subluxation. There is likely patchy diffuse osteopenia. There is no periosteal reaction or erosive changes. No osteolytic or blastic lesions seen. No opaque foreign body identified.
Please see full dictation for additional detail. Film personally viewed.
Assessment / Plan
Right heel ulceration
Esophageal stricture
Leukocytosis
Elevated ESR, CRP
Hx renal cancer
GERD
Dyslipidemia
Osteoporosis
Hx PNA
Hx bowel obstruction
Myositis
Recommendations:
At present, leukocytosis has improved.
No infectious process noted at present. Would discontinue further Unasyn.
Foot x-ray reviewed, and although no osseous defect noted, the area of interest (calcaneus) seems to be obscured by something on the x-ray.
Will order an os calcis x-ray for more definitive evaluation of the calcaneus. Of note, no issues were noted on the 09/14/2023 imaging.
Patient notes that there is hardware in the left knee area.
If further evaluation by MRI is requested, I no reason why that should impact evaluation of the right heel area, but will further review with Radiology
[2024-01-06] MEDS: LIPITOR 40 MG PO (17:55)
[2024-01-06] MEDS: LOVENOX 40 MG SC (17:55)
[2024-01-06] MEDS: TYLENOL 650 MG PO (22:27)
[2024-01-07 07:45] VITALS: BP 119/79
[2024-01-07] MEDS: PROTONIX 40 MG PO (08:31)
[2024-01-07] MEDS: LOW STRENGTH ASPIRIN 81 MG PO (08:31)
[2024-01-07] MEDS: MIRALAX 17 GRAMS PO (08:31)
--- NOTE | 2024-01-07 09:30 | PTOTSP ---
Speech Therapy Swallowing Assessment
Patient with overt signs concerning for pharyngeal stasis, laryngeal penetration and possible aspiration. Given results of recent EGD showing severe UES stricture, the likelihood of significant pharyngeal stasis is high.
Recommend
1. VSE to determine safest diet level and if needed, effective compensatory strategies.
2. No diet changes at this point, especially since patient is hesitant for significant diet modifications. Will defer diet level recs pending results of VSE.
--- NOTE | 2024-01-07 09:54 | PTCARENOTE ---
Pt is off the floor at this time for US.
--- NOTE | 2024-01-07 10:39 | W.PN.HOSP.TC ---
Today's Communication/Plan
-
VSE
appreciate wound care, vascular surgery consult
appreciate ID consult
Assessment / Plan
Assessment / Plan
Patient who has a history of CAD, myositis, chronic lower extremity swelling, recent 2-month history of a nonhealing right heel decubitus wound/ulcer who presented to the emergency department from wound care with complaint of altered mental status
and difficulty breathing. concerns for aspiration with esophageal stricture found on recent EGD, dysphagia with concern for a primary neuromyopathy process. Also RLE heel wound with concerns for infection with elevated ESR/CRP.
01/05/2024 x-ray right foot: No fracture, dislocation or subluxation. There is likely patchy diffuse osteopenia. There is no periosteal reaction or erosive changes. No osteolytic or blastic lesions seen. No opaque foreign body identified.
Please see full dictation for additional detail. Film personally viewed.
Arterial US:
IMPRESSION:
1. Right ankle-brachial index 0.79, compared to 0.59 on prior. Right toe brachial index 0.48. There is focal occlusion of the right distal SFA, with reconstitution of the popliteal artery. Infrapopliteal disease may also be present.
2. Left ankle brachial index 1.48 (likely artificially elevated), compared to 1.09 on prior. Left toe brachial index 1.25. No focal arterial stenosis demonstrated on the left side, and waveforms are normal to the level of the ankle.
CXR
IMPRESSION:
Some mild left basilar opacification suggesting subsegmental atelectasis and/or pneumonia.
PLAN:
1. Wound - decubitus/heel ulcer on right heel - does not appear overtly infected.
- admitted to med/surg
- appreciate ID and antibiotics stopped
- extremity arterial US with focal occlusion right distal SFA, will consult vascular
2. Weakness - Generalized weakness versus dehydration.
- TSH OK, covid negative
- orthostatics
- u/a is bland
- PT Eval - HH recommended
Possibly Dysphagia
-VSE ordered, appreciate ST
3. CAD
- continue asp/statin
4. GERD
- continue ppi
5. Leg Swelling - chronic according to patient and no dgx of chf. Echo from last year with normal ef, no wall motion changes or valvular disease
- elevate legs
- resume lasix
DVT PPX - lovenox sq
Code Status - full code
Anticipated Discharge: 24 - 48 hours
Subjective/Interval History
-
Date of Service: January 07, 2024
Objective Data
-
Labs:
Laboratory Results
01/07/24
06:00
WBC Pending
Hgb Pending
Hct Pending
Plt Count Pending
Sodium Pending
Potassium Pending
Chloride Pending
Carbon Dioxide Pending
BUN Pending
Creatinine Pending
Glucose Pending
Calcium Pending
Vital Signs:
Vital Signs
Temp Pulse Resp BP Pulse Ox
97.7 F 93 16 119/79 97
01/07/24 07:45 01/07/24 07:45 01/07/24 07:45 01/07/24 07:45 01/07/24 07:45
--- NOTE | 2024-01-07 11:25 | WOUNDNOTE ---
WON RN note: Patient admitted with altered mental status and wound infection.
See H&P for complete history. Lives at .
PMH: [place],Esophageal strictures-dilation every 5 years, pneumonia, L kidney removed from Cancer, multiple fractures from falls, stents in both legs, R heel non healing PI-goes to [facility].
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 Both legs and feet warm, very dry skin. Assessed patient along with Dr. Ramachandran. Had arterial study this
morning, showed occlusion in R distal SFA. R TBI 0.48 and L TBI 1.25. Reviewed current wound care with Dr. Cerna at wound center, using Santyl dressing and offloading. Patient has own fiber boot at night, states it isn't comfortable. During the
day using air cushion on pillow. L heel and sacrum intact. R & L ischium blanchable red. Patient sits at side of bed with legs dangling. Needs assistance in lifting legs back on bed, otherwise moves self.
Appetite: Poor, unable to tolerate swallowing some foods, swallowing study to be ordered by Dr. Ramachandran.
Pressure redistribution devices in place: On versa care air bed, air cushion on pillow under calves.
Plan: Dr. Ramachandran approved of wound care to R heel, Santyl, adaptic, abd pad and omar. Vascular consulted, dressing secured with Spandage for vascular to see. Will ask nurse to apply omar after their consult. Continue offloading can use patient's
own offloading boot at bedtime. Called [facility] for new fiber filled boot do not have any in supply.
Will confirm orders with hospitalist and update nurse. Updated care plan and will follow as needed.
Note to case management of equipment requested for discharge: VN if doesn't already have.
Recommend follow up at wound care center upon discharge.
[2024-01-07 13:02] LABS: Hematocrit 32.2 % (37.0-47.0); Hemoglobin 10.3 g/dL (12.0-16.0); Mean Corpuscular Hgb 26.9 pg (27.0-31.0); Mean Corpuscular Volume 84.1 fL (81.0-99.0); Red Blood Cell Count 3.83 10^6/uL (4.20-5.40); Red Cell Dist. Width 14.7 % (11.5-14.5); White Blood Cell Count 8.3 10^3/uL (4.8-10.8)
--- NOTE | 2024-01-07 13:02 | PTCARENOTE ---
Pt off the floor at this time for VSE.
[2024-01-07 13:22] LABS: Blood Urea Nitrogen 11 mg/dl (7-17); Calcium 10.2 mg/dl (8.4-10.2); Carbon Dioxide 28 mmol/L (22-30); Chloride 107 mmol/L (98-107); Estimated Creatinine Clearance 61 ml/min; Glucose 128 mg/dl (70-99); Potassium 4.3 mmol/L (3.5-5.1); Sodium 143 mmol/L (135-145); eGFR > 60.00
[2024-01-07 13:22] LABS: Erythrocyte Sed Rate 76 mm/hour (0-20)
[2024-01-07] MEDS: LASIX 20 MG PO (13:51)
--- NOTE | 2024-01-07 14:43 | CON.VAS ---
Addendum entered and electronically signed by Yovanny Judge III, MD 01/08/24 16:44:
This patient was seen and examined with JERRI Sol. I agree with the history and physical exam as well as the assessment and plan. I have the following additions:
Chronic non-healing right heel wound
Abnormal vascular studies
Recommending arteriogram with endo intervention on this admission
Technical aspects discussed with patient
Benefits/rationale for operative approach discussed with patient
Risks discussed with patient including but not limited to bleeding, contrast nephropathy, infection, distal embolization and need for additional procedures.
She agrees to proceed. Will also discuss with her daughter who is an OBGYN in [place].
OR Sunday
Call with questions/concerns
Signed:
Yovanny Judge III, MD
[facility]
[phone] (wvap)
Original Note:
Consultation
Consultation Request
Performing Provider: Suleiman
Reason for Consultation: Nonhealing right heel wound
Medical History
-
Chief Complaint: Nonhealing heel wound
History of Present Illness:
83 yo female presented on 01/05/24 to ER from rehab for change in mental status. During work up she was noted to have a right heel wound. Pt states she developed it in the last few months d/t rubbing on beds at the rehab. She states she has been
following with wound care for this wound. Pt states she does not have pain to the heel unless she puts a lot of pressure on it. She is able to walk as far/much as she desires. Denies claudication. Denies wound healing issues in the past. Denies DM,
HTN, vascular surgeries/stents/balloons, CAD.
Arterial US: Right ankle-brachial index 0.79, compared to 0.59 on prior. Right toe brachial index 0.48. There is focal occlusion of the right distal SFA, with reconstitution of the popliteal artery. Infrapopliteal disease may also be present. Left
ankle brachial index 1.48 (likely artificially elevated), compared to 1.09 on prior. Left toe brachial index 1.25. No focal arterial stenosis demonstrated on the left side, and waveforms are normal to the level of the ankle.
Vascular consult for PAD evaluation. Pt seen at bedside this afternoon. BL LE with +2 edema, dry, flakey, hardened skin. Both feet warm. See wound care notes for image of right heel wound. No drainage noted. No other open sites BL. +2 left DP, +1
right DP.
Past Medical History
Past Medical History: Cancer (kidney s/p left nephrectomy ), GERD and Other ( Esophageal stricture, Dyslipidemia, Osteoporosis, Myositis)
Past Surgical History: Appendectomy, Cholecystectomy, and Other (left nephrectomy )
Social History
Tobacco: Former Smoker
Alcohol: None
Drug: None
Personal:
Living: [facility]
Employment: Not Employed
Family History
Family History: Reviewed & Not Pertinent
Allergies / Home Medications
Allergy/AdvReac Type Severity Reaction Status Date / Time
No Known Allergies Allergy Verified 12/28/23 10:04
�Medication �Instructions �Recorded �Confirmed �Type
polyethylene glycol 3350 17 gram 17 grams PO DAILY Constipation 12/03/18 01/06/24 History
oral powder packet
valacyclovir 1 gram tablet 1,000 mg PO BIDPRN PRN herpes 12/03/18 01/06/24 History
simplex infection
cholecalciferol (vitamin D3) 50 50 mcg PO DAILY Supplement 05/09/22 01/06/24 History
mcg (2,000 unit) tablet (Vitamin
D3)
aspirin 81 mg chewable tablet 81 mg PO DAILY #30 tabs 05/12/22 01/06/24 Rx
atorvastatin 40 mg tablet 40 mg PO QPM #30 tabs 05/12/22 01/06/24 Rx
hydrocortisone 2.5 % topical cream 1 applic [place] DAILY PRN hemorrhoids 01/14/23 01/06/24 Rx
with perineal applicator #30 grams
(Procto-Med HC)
acetaminophen 500 mg tablet 500 mg PO Q6H PRN mild pain 06/17/23 01/06/24 History
furosemide 20 mg tablet 20 mg PO DAILY Fluid 06/17/23 01/06/24 History
Retention/Swelling
Review of Systems
-
History Source: Patient
All other systems: Negative unless noted
Constitutional: Reports No Symptoms
EENT: Reports No Symptoms
Respiratory: Reports No Symptoms
Cardiac: Reports No Symptoms
Vascular: Denies Leg Pain / Claudication
Abdomen/GI: Reports No Symptoms
: Reports No Symptoms
Musculoskeletal: Reports Edema
Skin: Reports Other (right heel wound)
Neurological: Reports No Symptoms
Endocrine: Reports No Symptoms
Physical Exam
Vital Signs
Temp Pulse Resp BP Pulse Ox
97.7 F 97 16 128/89 97
01/07/24 07:45 01/07/24 13:51 01/07/24 07:45 01/07/24 13:51 01/07/24 07:45
Lab Results
01/07/24 12:26
01/07/24 12:25
Physical Exam
HEENT: Normocephalic and Atraumatic
Respiratory: Non Labored Respirations
Cardiac: Negative JVD
GI: Soft, Non Tender and Non Distended
Musculoskeletal: No Clubbing, No Cyanosis and Edema (BL LE +2)
Skin: Warm, Dry and Other (See wound care notes for pic)
Neuro: Awake, Alert and Oriented
Psych: Calm
Pulses: Left Dorsalis Pedis: +2, Right Dorsalis Pedis: +1 and Left Posterior Tibial: +1
Assessment / Plan
-
83 yo female with nonhealing right heel wound
Arterial US: Right ankle-brachial index 0.79, compared to 0.59 on prior. Right toe brachial index 0.48. There is focal occlusion of the right distal SFA, with reconstitution of the popliteal artery. Infrapopliteal disease may also be present. Left
ankle brachial index 1.48 (likely artificially elevated), compared to 1.09 on prior. Left toe brachial index 1.25. No focal arterial stenosis demonstrated on the left side, and waveforms are normal to the level of the ankle.
Plan:
-Consult Podiatry
-Possible arteriogram Sunday
-Will d/w Attending and follow up with pt
Data Reviewed
-
Ultrasound: Discussed with Patient
Labs: Labs Reviewed by me
--- NOTE | 2024-01-07 14:58 | PTOTSP ---
Speech Therapy Swallowing Assessment
Severe pharyngeal stasis with consistent trace laryngeal penetration arising from pharyngeal stasis. Patient with good airway protection as noted by constant throat clearing to remove contrast from laryngeal vestibule, but aspiration but risk is
elevated. Degree of pharyngeal retention increased with density of contrast. Small amounts cleared into cervical esophagus over multiple swallows.
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
Recommend:
1. Liquid only diet (texture consistent with full liquid diet).
2. Meds crushed in thin or mildly thick liquid
3. Multiple dry swallows.
4. Aspiration and reflux precautions.
5. Consider ENT consultation per GI recommendations from recent EGD, to further address UES stricture.
6. ST will follow briefly to answer any follow up questions patient may have, however there are no rehab goals until stricture is addressed and swallow function can be reassessed.
[2024-01-07 15:30] VITALS: BP 163/90
--- NOTE | 2024-01-07 15:49 | W.PN.ID1 ---
Date of Service
Date of Service: January 07, 2024
Today's Communication
Sign off
Assessment / Plan
Right heel ulceration
Esophageal stricture
Leukocytosis
Elevated ESR, CRP
Hx renal cancer
GERD
Dyslipidemia
Osteoporosis
Hx PNA
Hx bowel obstruction
Myositis
Recommendations:
Imaging does not reveal evidence of osteomyelitis.
Continue off antibiotics.
Patient reports she follows routinely with a wound care physician; would continue.
Little more to offer from a Infectious Diseases standpoint.
Will see again at your request.
Chief Complaint
-: Other (Right heel ulcer)
Subjective / Review of Systems
Review of Systems: No Fever and No Chills
Vital Signs / Physical Exam
Vital Signs
Vital Signs
Temp Pulse Resp BP Pulse Ox
97.7 F 97 16 128/89 97
01/07/24 07:45 01/07/24 13:51 01/07/24 07:45 01/07/24 13:51 01/07/24 07:45
Physical Exam
Constitutional: No Acute Distress, Comfortable, Chronically Ill and Non-toxic
Eyes: Sclera Anicteric
Cardiovascular: S1/S2; Negative S3/S4
Pulmonary: Non Labored
Gastrointestinal: Soft and Non Tender
Wound: Other (Right heel dressed. No erythema extending up leg.)
Neurological: Awake and Alert
Psychological: Calm
Objective Data
Lab Data
Lab Results
01/07/24 12:26
01/07/24 12:25
ESR 76 mm/hour (0-20) H 01/07/24 12:26
Estimated Creat Clear 61 ml/min 01/07/24 12:25
Lactic Acid Cancelled 01/06/24 01:00
Total Bilirubin 0.7 mg/dl (0.2-1.3) 01/05/24 22:31
AST 24 U/L (14-36) 01/05/24 22:31
ALT 18 U/L (0-35) 01/05/24 22:31
Alkaline Phosphatase 84 U/L (38-126) 01/05/24 22:31
C-Reactive Protein 164.00 mg/L (0.0-10.00) H 01/07/24 12:25
Most recent labs reviewed.
Micro Results:
01/06/24 10:17 MRSA Screen - Final
Nose No Methicillin Resistant Staphylococcus aureus isolated.
01/05/24 23:34 Influenza Types A & B (LESLYE) - Final
Nasal Swab Negative for Influenza A & B, NAAT
Negative results must be combined with clinical observations
and patient history.
Nucleic Acid Amplification test (NAAT)performed on the
[employer] platform.
Imaging:
01/06/2024 x-ray right heel: Soft tissue loss posterior to the posterior inferior margin of the calcaneus compatible with soft tissue ulceration. No radiographic evidence for focal bony destruction, and no focal radiographic findings to indicate
osteomyelitis.
01/05/2024 x-ray right foot: No fracture, dislocation or subluxation. There is likely patchy diffuse osteopenia. There is no periosteal reaction or erosive changes. No osteolytic or blastic lesions seen. No opaque foreign body identified.
Please see full dictation for additional detail. Film personally viewed.
--- NOTE | 2024-01-07 16:18 | CM ---
MELISA met with Janell today at bedside. She currently lives at [facility], however daughter is renovating her home for Janell to move in with her once the house is completed. Janell is looking forward to going to stay with her daughter.
Plan: Probable return to [facility] at discharge with custodial plan to move in with her daughter.
[2024-01-07] MEDS: LIPITOR 40 MG PO (18:36)
[2024-01-07] MEDS: LOVENOX 40 MG SC (18:36)
[2024-01-07 23:58] VITALS: BP 156/76
[2024-01-08 07:30] LABS: Glucose - Point of Care 129 mg/dl (70-99)
[2024-01-08 07:35] VITALS: BP 141/67
[2024-01-08] MEDS: PROTONIX 40 MG PO (10:25)
[2024-01-08] MEDS: LOW STRENGTH ASPIRIN 81 MG PO (10:25)
[2024-01-08] MEDS: LASIX 20 MG PO (10:25)
[2024-01-08] MEDS: HYDROPHOR 1 APPLIC TOPICAL (10:25)
[2024-01-08] MEDS: MIRALAX 17 GRAMS PO (10:26)
[2024-01-08] MEDS: FLUSH (NSS) 1 FLUSH IV (10:27)
--- NOTE | 2024-01-08 11:05 | W.PN.HOSP.TC ---
Today's Communication/Plan
-
Vascular and ENT consults
full liquid
observe off antibiotics
Assessment / Plan
Assessment / Plan
Patient who has a history of CAD, myositis, chronic lower extremity swelling, recent 2-month history of a nonhealing right heel decubitus wound/ulcer who presented to the emergency department from wound care with complaint of altered mental status
and difficulty breathing. concerns for aspiration with esophageal stricture found on recent EGD, dysphagia with concern for a primary neuromyopathy process. Also RLE heel wound with concerns for infection with elevated ESR/CRP.
01/05/2024 x-ray right foot: No fracture, dislocation or subluxation. There is likely patchy diffuse osteopenia. There is no periosteal reaction or erosive changes. No osteolytic or blastic lesions seen. No opaque foreign body identified.
Please see full dictation for additional detail. Film personally viewed.
Arterial US:
IMPRESSION:
1. Right ankle-brachial index 0.79, compared to 0.59 on prior. Right toe brachial index 0.48. There is focal occlusion of the right distal SFA, with reconstitution of the popliteal artery. Infrapopliteal disease may also be present.
2. Left ankle brachial index 1.48 (likely artificially elevated), compared to 1.09 on prior. Left toe brachial index 1.25. No focal arterial stenosis demonstrated on the left side, and waveforms are normal to the level of the ankle.
CXR
IMPRESSION:
Some mild left basilar opacification suggesting subsegmental atelectasis and/or pneumonia.
PLAN:
1. Wound - decubitus/heel ulcer on right heel - does not appear overtly infected.
- admitted to med/surg
- appreciate ID and antibiotics stopped
- extremity arterial US with focal occlusion right distal SFA, vascular consulted
2. Weakness - Generalized weakness versus dehydration.
- TSH OK, covid negative
- orthostatics
- u/a is bland
- PT Eval - HH recommended
Dysphagia
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
-full liquids
-ENT consulted
3. CAD
- continue asp/statin
4. GERD
- continue ppi
5. Leg Swelling - chronic according to patient and no dgx of chf. Echo from last year with normal ef, no wall motion changes or valvular disease
- elevate legs
- resume lasix
DVT PPX - lovenox sq
Code Status - full code
Anticipated Discharge: 24 - 48 hours
Subjective/Interval History
-
Date of Service: January 08, 2024
denies pain
able to tolerate full liquids but needs to swallow a lot to get it down
Objective Data
-
Vital Signs:
Vital Signs
Temp Pulse Resp BP Pulse Ox
97.7 F 73 18 141/67 95
01/08/24 07:35 01/08/24 07:35 01/08/24 07:35 01/08/24 07:35 01/08/24 07:35
I&O
01/07/24 01/08/24 01/09/24
06:59 06:59 06:59
Intake Total 600 / 600
Balance 600 / 600
Review of Systems
-
History Source: Patient
All other systems: Reviewed and negative
Physical Exam
-
General: No Apparent Distress
HEENT: PERRLA
Respiratory: Clear to Auscultation; Negative Wheezes
Cardiac: Regular Rhythm and S1/S2
GI: Soft and Nontender
Musculoskeletal: No Edema and Other (RLE wrapped; heal with wound yellow adherent slough and some pink; no exudate or significant surrounding erythema )
Skin: Warm and Dry; Negative Rash
Neuro: AO x 3
Psych: Calm
Data Reviewed
-
Diagnostic Radiology: Report Reviewed by me
Labs: Labs Reviewed by me
--- NOTE | 2024-01-08 11:28 | PN.CDI ---
CDI
- -
CDI:
Physician Documentation Request
Admit Date: 01/06/24 04:28
Dear Doctor Duarte,
Please review the following and provide your response in the progress notes.
Clinical Indicators:
- 01/04 ER Physician 'presents to the emergency department from [facility] for change in mental status'
- 'has been acting 'lethargic 'per family'
- 01/04 H&P 'patient did not complain of any changes in mental status. She was alert and oriented x 3. She had a normal insight'
- 01/07 PN 'altered mental status'
Please clarify in the Progress Notes and Discharge Summary which, if any of the following, is the most likely etiology of the confusion/altered mental status.
Encephalopathy - indicate type, such as metabolic, toxic, septic, alcoholic, anoxic, hypertensive etc. due to a specific condition such as UTI, CVA, hyponatremia etc.
Acute Delirium - indicate known or suspected etiology such as postoperative, due to opioids or other drugs etc. Can also indicate unknown or mixed etiologies.
Acute or subacute confusional state due to (specify known or suspected etiology)
Other (please specify)
Use of terms such as suspected, likely, concern for, or probable (associated with a specific diagnosis that is being evaluated, monitored, or treated as if it exists) are acceptable and can be coded in the inpatient setting, when documented at the
time of discharge.
Thank you,
Analy Stringer RN
CDI Specialist
Please use your independent medical judgment in providing your response.
--- NOTE | 2024-01-08 11:51 | PN.CDI ---
CDI
- -
CDI:
Physician Documentation Request
Admit Date: 01/06/24 04:28
Dear Doctor Duarte,
Please review the following and provide your response in the progress notes.
Clinical Indicators:
- On admission: Tmax 100.5, WBC 13.4, HR 110s
- 01/04 H&P 'Wound - decubitus/heel ulcer on right heel. Not overtly infected'
- No osteomyelitis per ID
- 01/07 PN 'CXR...mild left basilar opacification suggesting subsegmental atelectasis and/or pneumonia'
Laboratory Tests
01/06/24 01/07/24 01/07/24
06:06 12:25 12:26
ESR 71 H 76 H
C-Reactive Protein 88.50 H 164.00 H
Please clarify which most accurately describes the patient:
Sepsis
Systemic manifestations of infection, with 2 or more SIRS criteria which include:
Fever > 100.4 degrees F or hypothermia < 96.8 degrees F
Leukocytosis - WBC > 12,000 or leukopenia, WBC < 4,000 or > 10% bands
Tachycardia - > 90 beats per minute
Tachypnea - RR > 20 breaths per minute or PaCO2 < 32 mmHg
Source: Merck Manual 2013
Indicate the known or suspected organism
Indicate the known or suspected underlying infection, such as UTI, pneumonia or cellulitis
SIRS due to a non-infectious source
Indicate the known or suspected etiology
Indicate if there is associated organ dysfunction, such as renal or respiratory failure
Other (please specify)
Use of terms such as suspected, likely, concern for, or probable (associated with a specific diagnosis that is being evaluated, monitored, or treated as if it exists) are acceptable and can be coded in the inpatient setting, when documented at the
time of discharge.
Thank you,
Analy Stringer RN
CDI Specialist
Please use your independent medical judgment in providing your response.
--- NOTE | 2024-01-08 12:29 | CON.MD ---
Consultation - Medical
-
Patient seen and evaluated at the bedside.
Full consult dictated.
A/L-9-qoxx-old female with dysphagia, upper esophageal stricture.
-Patient known to me as an outpatient. She was last seen in my office 2 years ago. Esophageal dilation was recommended at that point in time but she declined.
-Dysphagia has worsened over the last 2 and half years.
-Recent endoscopy report reviewed. Patient had narrowed upper esophageal stricture, resulting in performing endoscopy with a pediatric scope.
-Recent swallowing study also reviewed. Esophageal stricture causing slowed swallowing with risk of aspiration.
-Patient is on full liquid diet now, seems to be tolerating well.
-Patient could benefit from bougie dilation of esophagus.
-I am not certain patient is medically optimized for general anesthesia at this point in time.
-Could maintain full liquid diet with swallowing precautions for the next several weeks while patient is optimized.
-It may be best for patient to follow-up as an outpatient in my office to ensure she is strong enough to undergo the procedure.
-If patient needs another procedure under general anesthesia while she is an inpatient I could perform the dilation at the same point in time.
-Will discuss with medical team regarding patient's medical status for general anesthesia.
-The above was discussed with the patient and her sister at the bedside in detail.
[2024-01-08] MEDS: REFRESH EYE DROPS (PF) 1 DROPS OPHTH ×3 (14:49→21:17)
[2024-01-08 15:15] VITALS: BP 131/74
[2024-01-08 15:30] VITALS: BMI 26.7
[2024-01-08] MEDS: SANTYL OINTMENT TOPICAL (17:06)
[2024-01-08] MEDS: LIPITOR 40 MG PO (18:10)
[2024-01-08] MEDS: LOVENOX 40 MG SC (18:11)
--- NOTE | 2024-01-08 22:18 | CON.SURG ---
Surgical Consultation
-
Chief Complaint
-
Patient brought to the emergency department from [facility] for complaint of change in mental status.
History of Present Illness
Patient is a 83-year-old female with a past medical history significant for CAD status post PCI, GERD, hyperlipidemia, myositis of unknown etiology, right lower extremity injury for which she is on convalescence and developed right foot ulcer over
the last 2 months presents to the with mental status changes. Patient has had a chronic pressure ulcer to her right heel which began multiple months ago since her injury. She has been cared for at the [facility] wound center by
. She reports that she has had in office debridements by Dr. Ye. She believes her wound has been improving recently. She does endorse pain to the area but there is minimal drainage. She is unaware if she has had antibiotics for the
wound. Upon my evaluation, patient denies any n/v/f/cp/sob.
Medical History
Past Medical History
Past Medical History: Reports CAD (Status post PCI), GERD and Hypercholesterolemia
Past Surgical History: Reports Appendectomy, Cholecystectomy, Orthopedic (Left Tib/Fib) and Urological (Status post left nephrectomy)
Social History
Tobacco: Former Smoker
Alcohol: None
Drug: None
Personal:
Living: Alone
Employment: Retired
Family History
Family History: Not pertinent
Allergies / Home Medications
Allergies reflects when Allergies were last updated in [facility].
Home Medications with original date entered in [facility]
Allergy/Medication List:
Allergies
Allergy/AdvReac Type Severity Reaction Status Date / Time
No Known Allergies Allergy Verified 12/28/23 10:04
Home Medications
pantoprazole 40 mg tablet,delayed release 40 mg PO DAILY Gastrointestinal issue 12/03/18
polyethylene glycol 3350 17 gram oral powder packet 17 grams PO DAILY Constipation 12/03/18
valacyclovir 1 gram tablet 1,000 mg PO BIDPRN PRN herpes simplex infection 12/03/18
cholecalciferol (vitamin D3) 50 mcg (2,000 unit) tablet (Vitamin D3) 50 mcg PO DAILY Supplement 05/09/22
aspirin 81 mg chewable tablet 81 mg PO DAILY #30 tabs 05/12/22
atorvastatin 40 mg tablet 40 mg PO QPM #30 tabs 05/12/22
hydrocortisone 2.5 % topical cream with perineal applicator (Procto-Med HC) 1 applic [place] DAILY PRN hemorrhoids #30 grams 01/14/23
acetaminophen 500 mg tablet 500 mg PO Q6H PRN mild pain 06/17/23
furosemide 20 mg tablet 20 mg PO DAILY 06/17/23
polyvinyl alcohol 1.4 % eye drops 1 drp 4-8XD 06/17/23
Review of Systems
-
History Source: Patient
Constitutional: Reports Fatigue
EENT: Reports Sore Throat and Runny Nose
Respiratory: Reports No Symptoms
Cardiac: Reports No Symptoms
Abdomen/GI: Reports No Symptoms
: Reports Frequency
Musculoskeletal: Reports Edema
Skin: Reports Rash
Neurological: Reports Weakness
Endocrine: Reports No Symptoms
Hematologic/Lymphatic: Reports No Symptoms
Psych: Reports No Symptoms
Physical Exam
Vital Signs
Vital Signs
Temp Pulse Resp BP Pulse Ox
98.9 F 98 25 100/66 96
01/06/24 00:00 01/06/24 02:45 01/06/24 01:00 01/06/24 02:00 01/06/24 02:45
Physical Exam
General: No Apparent Distress and Poor Appetite
HEENT: NormoCephalic, Anicteric, Moist mucous membranes, Atraumatic and PERRLA
Respiratory: Clear
Cardiac: S1/S2, Regular Rhythm, Tachycardia and Murmur
Breast: Deferred by me
GI: Soft, Non Tender, Non Distended and Normal Bowel Sounds
Rectal: Deferred by Provider
Genito-urinary: Clear Urine and No costovertebral tender
Musculoskeletal: No Clubbing, No Cyanosis, Edema, Left Lower Extremity (1+) and Edema, Right Lower Extremity (1+)
Skin: Warm and Decubitus Ulcers (right heel ulcer, superficial exudate, no surrounding erythema, induration or tenderness to palpation)
Neuro: AO x 3
Hematologic/Lymphatic: No Lymphadenopathy
Psych: Calm
Right lower extremity exam
-DP/PT pulses are nonpalpable, capillary refill time is sluggish
-Right heel has entirely fibrotic wound down to subcutaneous tissue without any probe to bone, purulence, crepitus, fluctuance, or proximal streaking. Pain to touch of the right heel.
Laboratory Results
-
01/05/24 22:31
01/05/24 22:31
Laboratory Results
Lactic Acid Cancelled 01/06/24 01:00
Total Bilirubin 0.7 mg/dl (0.2-1.3) 01/05/24 22:31
AST 24 U/L (14-36) 01/05/24 22:31
ALT 18 U/L (0-35) 01/05/24 22:31
Alkaline Phosphatase 84 U/L (38-126) 01/05/24 22:31
Data Reviewed
-
Diagnostic Radiology: Image Personally Visualized and interpreted
Lab Data: Labs Reviewed by me
Old Records: Reviewed
Impression/Plan
Patient presents with a right heel pressure ulcer without an overt signs of acute infection
-Patient seen and evaluated at bedside. Applied betadine DSD
-Poor vascular examination, vascular surgery is planning for arteriogram on Sunday
-Radiographs with no evidence of osteomyelitis
-Recommend MRI of right heel to evaluate for deep infection
-Recommend daily dressing changes with betadine DSD
-Strict heel offloading recommended
-Podiatric plans to follow MRI and vascular intervention. No intervention anticipated
-Podiatry to continue to follow
[2024-01-08 23:00] VITALS: BP 143/78
[2024-01-09 07:35] VITALS: BP 139/87
[2024-01-09 08:49] LABS: Hematocrit 35.5 % (37.0-47.0); Hemoglobin 11.5 g/dL (12.0-16.0); Mean Corp Hgb Conc. 32.4 g/dL (33.0-37.0); Mean Corpuscular Hgb 27.8 pg (27.0-31.0); Mean Corpuscular Volume 85.7 fL (81.0-99.0); Mean Platelet Volume 9.6 fL (7.4-10.4); Platelet Count 327 10^3/uL (130-400); Red Blood Cell Count 4.14 10^6/uL (4.20-5.40); Red Cell Dist. Width 14.6 % (11.5-14.5); White Blood Cell Count 6.8 10^3/uL (4.8-10.8)
[2024-01-09 09:14] LABS: Blood Urea Nitrogen 12 mg/dl (7-17); Calcium 10.3 mg/dl (8.4-10.2); Carbon Dioxide 25 mmol/L (22-30); Chloride 104 mmol/L (98-107); Estimated Creatinine Clearance 61 ml/min; Glucose 89 mg/dl (70-99); Potassium 4.9 mmol/L (3.5-5.1); Sodium 144 mmol/L (135-145); eGFR > 60.00
[2024-01-09] MEDS: LOW STRENGTH ASPIRIN 81 MG PO (09:51)
[2024-01-09] MEDS: MIRALAX 17 GRAMS PO (09:51)
[2024-01-09] MEDS: LASIX 20 MG PO (09:51)
[2024-01-09] MEDS: PROTONIX 40 MG PO (09:51)
[2024-01-09] MEDS: REFRESH EYE DROPS (PF) 1 DROPS OPHTH ×3 (09:51→21:09)
[2024-01-09] MEDS: SANTYL OINTMENT 1 APPLIC TOPICAL (09:52)
[2024-01-09] MEDS: FLUSH (NSS) 1 FLUSH IV (09:53)
[2024-01-09] MEDS: HYDROPHOR 1 APPLIC TOPICAL (09:58)
[2024-01-09 10:50] VITALS: BP 137/81; PULSE 73
[2024-01-09 11:00] VITALS: BP 153/80; PULSE 107; O2SAT 98
--- NOTE | 2024-01-09 11:22 | W.PN.HOSP.TC ---
Addendum entered and electronically signed by Gladys Ramachandran MD 01/09/24 11:25:
CAD s/p PCI 06/01
Original Note:
Today's Communication/Plan
-
see plan
Assessment / Plan
Assessment / Plan
Patient who has a history of CAD, myositis, chronic lower extremity swelling, recent 2-month history of a nonhealing right heel decubitus wound/ulcer who presented to the emergency department from wound care with complaint of altered mental status
and difficulty breathing. concerns for aspiration with esophageal stricture found on recent EGD, dysphagia with concern for a primary neuromyopathy process. Also RLE heel wound with concerns for infection with elevated ESR/CRP.
01/05/2024 x-ray right foot: No fracture, dislocation or subluxation. There is likely patchy diffuse osteopenia. There is no periosteal reaction or erosive changes. No osteolytic or blastic lesions seen. No opaque foreign body identified.
Please see full dictation for additional detail. Film personally viewed.
Arterial US:
IMPRESSION:
1. Right ankle-brachial index 0.79, compared to 0.59 on prior. Right toe brachial index 0.48. There is focal occlusion of the right distal SFA, with reconstitution of the popliteal artery. Infrapopliteal disease may also be present.
2. Left ankle brachial index 1.48 (likely artificially elevated), compared to 1.09 on prior. Left toe brachial index 1.25. No focal arterial stenosis demonstrated on the left side, and waveforms are normal to the level of the ankle.
CXR
IMPRESSION:
Some mild left basilar opacification suggesting subsegmental atelectasis and/or pneumonia.
Wound - decubitus/heel ulcer on right heel - does not appear overtly infected.
- admitted to med/surg
- appreciate ID and antibiotics stopped
- appreciate Podiatry consult -MRI ordered
- extremity arterial US with focal occlusion right distal SFA, vascular consulted
Dysphagia
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
-full liquids
-ENT consult appreciated - per Dr. Lima, patient would benefit from bougie dilation of esophagus, requires generalized anesthesia - best to follow up as outpatient once acute issues resolved
PAD
-plan for angiogram on Sunday
Weakness - Generalized weakness versus dehydration.
-resolved
CAD
- continue asp/statin
GERD
- continue ppi
Leg Swelling - chronic according to patient and no dgx of chf. Echo from last year with normal ef, no wall motion changes or valvular disease
- elevate legs
- resume lasix
DVT PPX - lovenox sq
Code Status - full code
Anticipated Discharge: > 48 hours
Subjective/Interval History
-
Date of Service: January 09, 2024
feeling okay
mostly tolerating full liquid diet
Objective Data
-
Labs:
Laboratory Results
01/09/24
07:18
WBC 6.8
Hgb 11.5 L
Hct 35.5 L
Plt Count 327 D
Sodium 144
Potassium 4.9
Chloride 104
Carbon Dioxide 25
BUN 12
Creatinine 0.4 L
Glucose 89
Calcium 10.3 H
Vital Signs:
Vital Signs
Temp Pulse Resp BP Pulse Ox
98.6 F 101 20 139/87 96
01/09/24 07:35 01/09/24 07:35 01/09/24 07:35 01/09/24 07:35 01/09/24 07:35
I&O
01/08/24 01/09/24 01/10/24
06:59 06:59 06:59
Intake Total 600 / 600 240 / 240
Output Total 500 / 500
Balance 600 / 600 -260 / -260
Review of Systems
-
History Source: Patient
All other systems: Reviewed and negative
Physical Exam
-
General: No Apparent Distress
HEENT: PERRLA
Respiratory: Clear to Auscultation; Negative Wheezes
Cardiac: Regular Rhythm and S1/S2
GI: Soft and Nontender
Musculoskeletal: No Edema and Other (RLE wrapped; heal with wound yellow adherent slough and some pink; no exudate or significant surrounding erythema )
Skin: Warm and Dry; Negative Rash
Neuro: AO x 3
Psych: Calm
Data Reviewed
-
Diagnostic Radiology: Report Reviewed by me
Labs: Labs Reviewed by me
[2024-01-09 15:00] VITALS: BP 102/61
[2024-01-09] MEDS: LOVENOX 40 MG SC (18:01)
[2024-01-09] MEDS: LIPITOR 40 MG PO (18:01)
[2024-01-09 23:24] VITALS: BP 98/64
[2024-01-10] MEDS: TYLENOL 650 MG PO (04:00)
[2024-01-10 07:25] VITALS: BP 136/66
[2024-01-10] MEDS: PROTONIX 40 MG PO (07:55)
[2024-01-10] MEDS: LOW STRENGTH ASPIRIN 81 MG PO (07:55)
[2024-01-10] MEDS: MIRALAX 17 GRAMS PO (07:55)
[2024-01-10] MEDS: LASIX 20 MG PO (07:56)
[2024-01-10] MEDS: REFRESH EYE DROPS (PF) 1 DROPS OPHTH ×3 (07:57→21:42)
[2024-01-10] MEDS: HYDROPHOR 1 APPLIC TOPICAL (07:58)
[2024-01-10] MEDS: SANTYL OINTMENT 1 APPLIC TOPICAL (08:04)
--- NOTE | 2024-01-10 10:29 | W.PN.HOSP.TC ---
Today's Communication/Plan
-
see plan
Assessment / Plan
Assessment / Plan
Patient who has a history of CAD, myositis, chronic lower extremity swelling, recent 2-month history of a nonhealing right heel decubitus wound/ulcer who presented to the emergency department from wound care with complaint of altered mental status
and difficulty breathing. concerns for aspiration with esophageal stricture found on recent EGD, dysphagia with concern for a primary neuromyopathy process. Also RLE heel wound with concerns for infection with elevated ESR/CRP.
01/05/2024 x-ray right foot: No fracture, dislocation or subluxation. There is likely patchy diffuse osteopenia. There is no periosteal reaction or erosive changes. No osteolytic or blastic lesions seen. No opaque foreign body identified.
Please see full dictation for additional detail. Film personally viewed.
Arterial US:
IMPRESSION:
1. Right ankle-brachial index 0.79, compared to 0.59 on prior. Right toe brachial index 0.48. There is focal occlusion of the right distal SFA, with reconstitution of the popliteal artery. Infrapopliteal disease may also be present.
2. Left ankle brachial index 1.48 (likely artificially elevated), compared to 1.09 on prior. Left toe brachial index 1.25. No focal arterial stenosis demonstrated on the left side, and waveforms are normal to the level of the ankle.
CXR
IMPRESSION:
Some mild left basilar opacification suggesting subsegmental atelectasis and/or pneumonia.
MRI RIGHT HEEL
IMPRESSION:
Mild osteitis of the cortex of the posterior calcaneus at the level of the hindfoot wound. No convincing MRI evidence for acute osteomyelitis.
Wound - decubitus/heel ulcer on right heel - does not appear overtly infected.
Peripheral Arterial Disease - focal occlusion right distal SFA
- admitted to med/surg
- appreciate ID and antibiotics stopped
- appreciate Podiatry consult -MRI without e/o osteo
- extremity arterial US with focal occlusion right distal SFA, vascular consulted - plan for arteriogram with endo intervention tomorrow
Dysphagia
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
-full liquids
-ENT consult appreciated - per Dr. Lima, patient would benefit from bougie dilation of esophagus, requires generalized anesthesia - best to follow up as outpatient once acute issues resolved
Weakness - Generalized weakness versus dehydration.
-resolved
CAD
- continue asp/statin
GERD
- continue ppi
Leg Swelling - chronic according to patient and no dgx of chf. Echo from last year with normal ef, no wall motion changes or valvular disease
- elevate legs
- resume lasix
DVT PPX - lovenox sq
Code Status - full code
Anticipated Discharge: > 48 hours
Subjective/Interval History
-
Date of Service: January 10, 2024
no new complaints
Objective Data
-
Vital Signs:
Vital Signs
Temp Pulse Resp BP Pulse Ox
98.1 F 89 18 136/66 96
01/10/24 07:25 01/10/24 07:56 01/10/24 07:25 01/10/24 07:56 01/10/24 10:20
I&O
01/09/24 01/10/24 01/11/24
06:59 06:59 06:59
Intake Total 240 / 240 480 / 480
Output Total 500 / 500 200 / 200
Balance -260 / -260 280 / 280
Review of Systems
-
History Source: Patient
All other systems: Reviewed and negative
Physical Exam
-
General: No Apparent Distress
HEENT: PERRLA
Respiratory: Clear to Auscultation; Negative Wheezes
Cardiac: Regular Rhythm and S1/S2
GI: Soft and Nontender
Musculoskeletal: No Edema and Other (RLE wrapped; heal with wound yellow adherent slough and some pink; no exudate or significant surrounding erythema )
Skin: Warm and Dry; Negative Rash
Neuro: AO x 3
Psych: Calm
Data Reviewed
-
Diagnostic Radiology: Report Reviewed by me
Labs: Labs Reviewed by me
--- NOTE | 2024-01-10 15:20 | W.PN.SURGUPD ---
Surgical Update
Surgical Update
Patient presents with a right heel pressure ulcer without an overt signs of acute infection
-Patient seen and evaluated at bedside
-MRI reviewed without definitive evidence for osteomyelitis
-No surgical intervention required for right heel wound
-Vascular plans for arteriogram tomorrow 01/10
-Recommend daily dressing changes with betadine, DSD
-Strict heel offloading precautions
-Patient to follow up with Dr. Ye of wound care center following discharge
[2024-01-10 15:34] VITALS: BP 125/69
--- NOTE | 2024-01-10 16:25 | CM ---
CM continues to follow for discharge planning. PT has recommended home care services at discharge.
CM to refer to HH at time of discharge. Pt will return to [facility] when medically ready.
[2024-01-10] MEDS: LOVENOX 40 MG SC (17:26)
[2024-01-10] MEDS: LIPITOR 40 MG PO (17:26)
[2024-01-10 23:00] VITALS: BP 129/59
[2024-01-11] VITALS (21 sets, daily range): BP systolic 86–175; BP diastolic 52–94
--- NOTE | 2024-01-11 07:49 | W.PN.HOSP.TC ---
Today's Communication/Plan
-
NPO for arteriogram
Assessment / Plan
Assessment / Plan
Patient who has a history of CAD, myositis, chronic lower extremity swelling, recent 2-month history of a nonhealing right heel decubitus wound/ulcer who presented to the emergency department from wound care with complaint of altered mental status
and difficulty breathing. concerns for aspiration with esophageal stricture found on recent EGD, dysphagia with concern for a primary neuromyopathy process. Also RLE heel wound with concerns for infection with elevated ESR/CRP.
01/05/2024 x-ray right foot: No fracture, dislocation or subluxation. There is likely patchy diffuse osteopenia. There is no periosteal reaction or erosive changes. No osteolytic or blastic lesions seen. No opaque foreign body identified.
Please see full dictation for additional detail. Film personally viewed.
Arterial US:
IMPRESSION:
1. Right ankle-brachial index 0.79, compared to 0.59 on prior. Right toe brachial index 0.48. There is focal occlusion of the right distal SFA, with reconstitution of the popliteal artery. Infrapopliteal disease may also be present.
2. Left ankle brachial index 1.48 (likely artificially elevated), compared to 1.09 on prior. Left toe brachial index 1.25. No focal arterial stenosis demonstrated on the left side, and waveforms are normal to the level of the ankle.
CXR
IMPRESSION:
Some mild left basilar opacification suggesting subsegmental atelectasis and/or pneumonia.
MRI RIGHT HEEL
IMPRESSION:
Mild osteitis of the cortex of the posterior calcaneus at the level of the hindfoot wound. No convincing MRI evidence for acute osteomyelitis.
Wound - decubitus/heel ulcer on right heel - not infected
Peripheral Arterial Disease - focal occlusion right distal SFA
- admitted to med/surg
- appreciate ID and antibiotics stopped
- appreciate Podiatry consult -MRI without e/o osteo
- extremity arterial US with focal occlusion right distal SFA, vascular consulted - plan for arteriogram with endo intervention today
Dysphagia
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
-full liquids
-ENT consult appreciated - per Dr. Lima, patient would benefit from bougie dilation of esophagus, requires generalized anesthesia - best to follow up as outpatient once acute issues resolved - Dr. Lima dicussed with patient' daughter
TME
SIRS - possibly related to aspiration event
-resolved
Weakness - Generalized weakness versus dehydration.
-resolved
CAD
- continue asp/statin
GERD
- continue ppi
Leg Swelling - chronic according to patient and no dgx of chf. Echo from last year with normal ef, no wall motion changes or valvular disease
- elevate legs
- resume lasix
DVT PPX - lovenox sq
Code Status - full code
Anticipated Discharge: 24 - 48 hours
Subjective/Interval History
-
Date of Service: January 11, 2024
feeling well
no complaints
Objective Data
-
Labs:
Laboratory Results
01/11/24
06:00
WBC Pending
Hgb Pending
Hct Pending
Plt Count Pending
PT Pending
INR Pending
APTT Pending
Sodium Pending
Potassium Pending
Chloride Pending
Carbon Dioxide Pending
BUN Pending
Creatinine Pending
Glucose Pending
Calcium Pending
Vital Signs:
Vital Signs
Temp Pulse Resp BP Pulse Ox
97.3 F 75 18 129/59 99
01/10/24 23:00 01/10/24 23:00 01/10/24 23:00 01/10/24 23:00 01/10/24 23:00
I&O
01/10/24 01/11/24 01/12/24
06:59 06:59 06:59
Intake Total 480 / 480 480 / 480
Output Total 200 / 200
Balance 280 / 280 480 / 480
Review of Systems
-
History Source: Patient
All other systems: Reviewed and negative
Physical Exam
-
General: No Apparent Distress
HEENT: PERRLA
Respiratory: Clear to Auscultation; Negative Wheezes
Cardiac: Regular Rhythm and S1/S2
GI: Soft and Nontender
Musculoskeletal: No Edema and Other (RLE wrapped; heal with wound yellow adherent slough and some pink; no exudate or significant surrounding erythema )
Skin: Warm and Dry; Negative Rash
Neuro: AO x 3
Psych: Calm
Data Reviewed
-
Diagnostic Radiology: Report Reviewed by me
Labs: Labs Reviewed by me
[2024-01-11 08:25] LABS: Hematocrit 34.2 % (37.0-47.0); Mean Corp Hgb Conc. 32.2 g/dL (33.0-37.0); Mean Corpuscular Hgb 26.5 pg (27.0-31.0); Mean Corpuscular Volume 82.4 fL (81.0-99.0); Mean Platelet Volume 8.6 fL (7.4-10.4); Platelet Count 353 10^3/uL (130-400); Red Blood Cell Count 4.15 10^6/uL (4.20-5.40); Red Cell Dist. Width 14.6 % (11.5-14.5); White Blood Cell Count 5.9 10^3/uL (4.8-10.8)
[2024-01-11 08:36] LABS: INR 0.98; PT 12.8 Sec (11.4-14.6)
[2024-01-11 08:37] LABS: APTT 29.2 Sec (23.4-35.0)
[2024-01-11] MEDS: PROTONIX 40 MG PO (08:42)
[2024-01-11] MEDS: REFRESH EYE DROPS (PF) 1 DROPS OPHTH ×2 (08:42→21:09)
[2024-01-11] MEDS: LASIX 20 MG PO (08:43)
[2024-01-11] MEDS: LOW STRENGTH ASPIRIN 81 MG PO (08:43)
[2024-01-11] MEDS: MIRALAX PO (08:43)
[2024-01-11] MEDS: HYDROPHOR 1 APPLIC TOPICAL (08:47)
[2024-01-11 08:51] LABS: Blood Urea Nitrogen 14 mg/dl (7-17); Calcium 11.2 mg/dl (8.4-10.2); Carbon Dioxide 29 mmol/L (22-30); Chloride 103 mmol/L (98-107); Estimated Creatinine Clearance 61 ml/min; Glucose 93 mg/dl (70-99); Potassium 4.9 mmol/L (3.5-5.1); Sodium 143 mmol/L (135-145); eGFR > 60.00
--- NOTE | 2024-01-11 13:29 | W.SUR.PREOP ---
Pre-Operative Surgical Note
-
I have examined this patient prior to the performance of the scheduled procedure.
The patient's condition is unchanged from the time of the current History and
Physical and the patient is able to undergo the scheduled procedure.
[2024-01-11] MEDS: PLAVIX PO ×2 (17:15→18:04)
[2024-01-11] MEDS: PLAVIX 300 MG PO (17:17)
--- NOTE | 2024-01-11 17:42 | OR.RPT ---
Operative Report
Operative Report
Date of Operation: 01/11/2024
Pre Op Diagnosis: Chronic limb threatening ischemia with nonhealing right heel wound
Post Op Diagnosis: Chronic limb threatening ischemia with nonhealing right heel wound
Procedure:
1.) Intravascular lithotripsy to right popliteal artery occlusion (Javelin intravascular lithotripsy catheter)
2.) Drug-coated balloon angioplasty to right popliteal artery (5 mm x 150 mm Lutonix DCB)
3.) Balloon angioplasty and stenting (6 mm x 120 mm Supera stent; 6 mm angioplasty balloon)
4.) Diagnostic aortobiiliac arteriogram
5.) Diagnostic right lower extremity arteriogram
6.) Ultrasound-guided percutaneous retrograde right posterior tibial artery access
7.) Ultrasound-guided percutaneous access to the left common femoral artery
Surgeon: Yovanny Judge III, MD
Car Detailer: Mandeep Juares MD PhD, PGY2
Anesthesia: Sedation with local
Fluoroscopy:
80.9 min
195 mGy
38.96 Gy.cm2
Complications: None
Estimated Blood Loss: 50 cc
History and Indications for Procedure: 83-year-old female with chronic limb threatening ischemia manifested by a nonhealing right heel wound
Procedure in Detail: Janell Kahn was correctly identified and placed supine on the operating table. After adequate induction of anesthesia the bilateral groins were prepped and draped in the usual sterile fashion. A timeout was performed with the
nursing and anesthesia staff confirming the patient's identity as well as the nature and laterality of the procedure.
The left common femoral artery was identified under ultrasound guidance. The artery was patent. The superior and inferior aspects of the femoral head were identified with radiographic guidance and marked at the skin level. The proposed puncture site
was infiltrated with local anesthesia. We saved a copy of the ultrasound image to the medical record. Under ultrasound guidance we accessed the left common femoral artery with a micropuncture needle and upsized to a 5 Fr sheath over a [employer] wire.
The wire and a Shepher3Jam hook flush catheter were advanced into the distal abdominal aorta and a diagnostic aorto-biiliac arteriogram was performed:
AORTO-ILIAC ARTERIOGRAM:
Aorta: Heavy peripheral calcification. Aneurysmal degeneration identified. Patent.
Right common iliac artery: Patent with no significant stenosis identified
Right external iliac artery: Patent with no significant gnosis identified
Left common iliac artery: Patent with no significant gnosis identified
Left external iliac artery: Patent with no significant gnosis identified
Under roadmap guidance using a Glidewire and the [id number] hook catheter we selected the right common iliac artery and then the external iliac artery. A catheter was tracked up and over the aortic bifurcation and placed in the distal external iliac
artery. A diagnostic right lower extremity arteriogram was then performed which demonstrated the following:
RIGHT LOWER EXTREMITY:
Common femoral artery: Patent with no significant gnosis identified
Profunda femoral artery: Patent with no significant gnosis identified
Superficial femoral artery: Patent with no significant gnosis identified
Popliteal artery: High-grade stenosis in the above-knee popliteal artery progressing to occlusion behind the knee focally. Reconstitution of below the knee popliteal artery
Anterior tibial artery: Patent proximally but occludes distally
Tibioperoneal trunk: Patent
Peroneal artery: Patent to the ankle
Posterior tibial artery: Patent. Continues across the ankle to form plantar branches
ENDOVASCULAR INTERVENTION: Systemic heparin was administered. Exchanged out for a 6 Fr 45 cm sheath over a Storq wire. Selected the superficial femoral artery under roadmap guidance with Quickcross catheter and glidewire. Under roadmap guidance I
then positioned the Quickcross at the point of the popliteal artery occlusion. A 0.014 wire was placed. Due to the calcified nature of the arterial disease and in an effort to cross the occluded segment I elected to proceed with intravascular
lithotripsy using the Javelin device. The 1.5 mm Javelin device was advanced over the 0.014 wire to the point of occlusion. Pulses were delivered while gently advancing the Javelin device over the 0.014 wire. The proximal cap crossed easily. The
distal cap was more challenging and I entered into a dissection flap at the distal end of the occlusion. All 120 pulses were delivered across the popliteal artery occlusion.
I was unable to cross the dissection flap from above. I therefore proceeded with retrograde pedal access. The ankle was prepped and draped in the usual sterile fashion. Under ultrasound guidance I accessed the posterior tibial artery with a
micropuncture needle and then upsized to a 4Fr sheath.
I advanced a 0.014 wire and Quickcross catheter retrograde to the popliteal artery behind the knee. I also had difficulty crossing the popliteal artery from below. I then tried an 0.035 system and had similar difficulty. I left the wire in place and
tried again from above. This time, I was successful at passing a 0.035 glidewire and Quickcross across the lesion to the below knee popliteal artery.
Exchanged out for a [employer] wire. A 5 mm x 150 mm Lutonix drug coated angioplasty balloon was placed across the popliteal stenosis under roadmap guidance. The balloon was inflated to nominal pressure, held in place for 3 minutes and then deflated and
removed over the wire. Subsequent arteriogram demonstrated an improved but suboptimal result. I then brought into position a 6 mm x 120 mm Supera stent and positioned this across the popliteal artery under roadmap guidance. The stent was deployed
and the delivery system removed over the wire. A 6 mm angioplasty balloon was used to profile the entire length of the stent.
COMPLETION ARTERIOGRAM: Excellent technical result. Brisk flow through the popliteal artery stent with no residual stenosis identified. Brisk outflow through the tibioperoneal trunk, peroneal and posterior tibial arteries. Patent posterior tibial
artery with flow around the pedal access sheath.
Satisfied with this result we concluded the procedure. The sheath tip was pulled back into the left external iliac artery. Protamine was administered. Both sheaths were pulled and direct manual pressure was applied. Hemostasis was achieved.
Sterile dressings were applied.
The patient tolerated the procedure well and was taken to the recovery area in stable condition. Patient had a palpable posterior tibial artery pulse at the right ankle at the conclusion of the case.
Attestation: I was present and responsible for the entire procedure.
Signed:
Yovanny Judge III, MD
[facility]
[phone] (cell)
[2024-01-11] MEDS: REFRESH EYE DROPS (PF) OPHTH (18:01)
--- NOTE | 2024-01-11 18:33 | W.IMMPOSTOP ---
Surgical Immed Post Op Note
-
Primary Surgeon: Dr. Yovanny Judge III, MD
Assisting Surgeon: Mandeep Juares MD, PhD (PGY-2)
Pre-op Diagnosis: Peripheral arterial disease with non healing wound on R heel
Post-op Diagnosis: Peripheral arterial disease with non healing wound on R heel
Procedure Performed: Drug coated balloon angioplasty, intravascular lithotripsy, stent placement, retrograde pedal artery access
Anesthesia Type: General
Specimen / Cultures: None
Estimated Blood Loss: Minimal
Complications: None
Operative Findings: The patient was brought to the OR and prepped and draped in usual sterile fashion. The inferior and superior aspect of the left femoral head were identified by fluoroscopy. The left common femoral artery was identified with
ultrasound guidance and accessed with a micropuncture needle. This was upsized to a 5-czech sheath over a [employer] wire. A glidewire and king's hook catheter were used to access the distal abdominal aorta. Arteriogram showed aneurysmal
degeneration of the abdominal aorta with no significant disease in the common iliacs bilaterally. The glidewire was then used to access the contralateral iliofemoral system. Arteriogram showed a widely patient R common iliac, external iliac,
internal iliac, common femoral artery, profunda, and SFA. However there was significant disease noted at the behind knee popliteal artery with reconstitution of flow distally. Intravascular lithotripsy was performed antegrade across this popliteal
artery lesion. The wire could not completely cross the lesion, so distal pedal artery access was performed via the R posterior tibial artery. A 4Fr sheath was placed at the right PT. A wire was passed to try to cross the lesion in retrograde
fashion. This was unsuccessful. Another attempt was performed to cross the lesion in anterograde fashion with a stiff glidewire. This was successful. The entire segment of disease underwent drug coated balloon angioplasty. Then [id number] supera stent
was placed across the lesion followed by a post delivery balloon angioplasty. At the end of the case, completion angiogram showed a patent stent across the behind knee popliteal artery segment with good flow through to the TP trunk and excellent run
off. Both sheaths were removed and manual pressure was held. The right DP was palpable, the right PT and left DP/PT were dopplerable. The right foot was wrapped and the patient was transferred to the PACU in stable condition.
[2024-01-11] MEDS: NSS 1000 IV (18:42)
--- NOTE | 2024-01-11 19:40 | PTCARENOTE ---
Received pt post Angioplasty/Stent. Pt disoriented to time and situation. Pt denies any Chest pain or shortness of breath. VSS. L groin site clean dry and intact with gauze/tegaderm. R ankle site clean dry and intact with gauze and tegaderm. Weak
palpable DP B/L LE. All orders reviewed and acknowledged. Plan of care discussed with patient.
[2024-01-11] MEDS: SANTYL OINTMENT 1 APPLIC TOPICAL (21:08)
[2024-01-11] MEDS: LIPITOR 40 MG PO (21:09)
[2024-01-11] MEDS: LOVENOX 40 MG SC (21:09)
[2024-01-12 00:30] VITALS: BP 138/66
[2024-01-12 03:28] VITALS: BP 132/59
[2024-01-12 05:56] VITALS: BMI 24.6
[2024-01-12 06:56] LABS: Hematocrit 31.9 % (37.0-47.0); Hemoglobin 10.2 g/dL (12.0-16.0); Mean Corpuscular Hgb 26.7 pg (27.0-31.0); Mean Corpuscular Volume 83.5 fL (81.0-99.0); Platelet Count 341 10^3/uL (130-400); Red Blood Cell Count 3.82 10^6/uL (4.20-5.40); Red Cell Dist. Width 14.6 % (11.5-14.5); White Blood Cell Count 6.2 10^3/uL (4.8-10.8)
[2024-01-12 07:32] LABS: Blood Urea Nitrogen 16 mg/dl (7-17); Calcium 9.9 mg/dl (8.4-10.2); Carbon Dioxide 26 mmol/L (22-30); Chloride 107 mmol/L (98-107); Estimated Creatinine Clearance 61 ml/min; Glucose 91 mg/dl (70-99); Potassium 4.5 mmol/L (3.5-5.1); Sodium 144 mmol/L (135-145); eGFR > 60.00
[2024-01-12 07:55] VITALS: BP 134/58
[2024-01-12] MEDS: SANTYL OINTMENT 1 APPLIC TOPICAL (09:15)
[2024-01-12] MEDS: LOW STRENGTH ASPIRIN 81 MG PO (09:16)
[2024-01-12] MEDS: REFRESH EYE DROPS (PF) 1 DROPS OPHTH ×3 (09:16→20:30)
[2024-01-12] MEDS: PLAVIX 75 MG PO (09:16)
[2024-01-12] MEDS: LASIX 20 MG PO (09:16)
[2024-01-12] MEDS: PROTONIX 40 MG PO (09:16)
[2024-01-12] MEDS: MIRALAX PO ×2 (09:16→09:22)
[2024-01-12] MEDS: HYDROPHOR 1 APPLIC TOPICAL (09:17)
--- NOTE | 2024-01-12 09:44 | W.PN.VS ---
Today's Communication / Plan
-
See plan below for today 01-12-24.
Assessment/Plan
-
Status post right popliteal artery angioplasty/intravascular lithotripsy angioplasty. Okay for disposition from a vascular perspective whenever otherwise medically okay. Follow-up in the office in 4 weeks with repeat surveillance ultrasound
imaging.
-
Total Time Spent with Patient (in minutes): 8
Subjective Data
-
Date of Service: January 12, 2024
No significant complaints.
Objective Data
-
Vital Signs
Temp Pulse Resp BP Pulse Ox
97.7 F 87 14 134/58 93
01/12/24 07:55 01/12/24 07:55 01/12/24 07:55 01/12/24 07:55 01/12/24 07:55
Intake and Output
01/11/24 01/12/24 01/13/24
06:59 06:59 05:59
Intake Total 480 / 480 1050 / 1050 360 / 360
Output Total 250 / 250
Balance 480 / 480 800 / 800 360 / 360
Intake:
Oral fluids 480 / 480 150 / 150 360 / 360
IV fluids (Total) 900 / 900
ns 100 / 100
Output:
Urine, Voided 250 / 250
Other:
Number of approximated LARGE 1
amounts of urine
How many times incontinent 1 2
SATURATED amount urine
Lab Results
01/12/24 06:18
01/12/24 06:18
Calcium 9.9 mg/dl (8.4-10.2) 01/12/24 06:18
Total Bilirubin 0.7 mg/dl (0.2-1.3) 01/05/24 22:31
AST 24 U/L (14-36) 01/05/24 22:31
ALT 18 U/L (0-35) 01/05/24 22:31
Alkaline Phosphatase 84 U/L (38-126) 01/05/24 22:31
Total Protein 7.1 g/dl (6.3-8.2) 01/05/24:
Albumin 4.0 g/dl (3.5-5.0) 01/05/24 22:
Physical Exam
-
She is awake and alert.
Abdomen is soft, nondistended, nontender.
Left groin puncture site flat, no hematoma.
Right foot warm and well-perfused with good dopplerable (possible palpable) DP signal.
Right foot puncture site flat.
--- NOTE | 2024-01-12 10:50 | W.PN.HOSP.TC ---
Today's Communication/Plan
-
approaching discharge
Assessment / Plan
Assessment / Plan
Patient who has a history of CAD, myositis, chronic lower extremity swelling, recent 2-month history of a nonhealing right heel decubitus wound/ulcer who presented to the emergency department from wound care with complaint of altered mental status
and difficulty breathing. concerns for aspiration with esophageal stricture found on recent EGD, dysphagia with concern for a primary neuromyopathy process. Also RLE heel wound with concerns for infection with elevated ESR/CRP.
01/05/2024 x-ray right foot: No fracture, dislocation or subluxation. There is likely patchy diffuse osteopenia. There is no periosteal reaction or erosive changes. No osteolytic or blastic lesions seen. No opaque foreign body identified.
Please see full dictation for additional detail. Film personally viewed.
Arterial US:
IMPRESSION:
1. Right ankle-brachial index 0.79, compared to 0.59 on prior. Right toe brachial index 0.48. There is focal occlusion of the right distal SFA, with reconstitution of the popliteal artery. Infrapopliteal disease may also be present.
2. Left ankle brachial index 1.48 (likely artificially elevated), compared to 1.09 on prior. Left toe brachial index 1.25. No focal arterial stenosis demonstrated on the left side, and waveforms are normal to the level of the ankle.
CXR
IMPRESSION:
Some mild left basilar opacification suggesting subsegmental atelectasis and/or pneumonia.
MRI RIGHT HEEL
IMPRESSION:
Mild osteitis of the cortex of the posterior calcaneus at the level of the hindfoot wound. No convincing MRI evidence for acute osteomyelitis.
01/11/24
Procedure:
1.) Intravascular lithotripsy to right popliteal artery occlusion (Javelin intravascular lithotripsy catheter)
2.) Drug-coated balloon angioplasty to right popliteal artery (5 mm x 150 mm Lutonix DCB)
3.) Balloon angioplasty and stenting (6 mm x 120 mm Supera stent; 6 mm angioplasty balloon)
4.) Diagnostic aortobiiliac arteriogram
5.) Diagnostic right lower extremity arteriogram
6.) Ultrasound-guided percutaneous retrograde right posterior tibial artery access
7.) Ultrasound-guided percutaneous access to the left common femoral artery
Wound - decubitus/heel ulcer on right heel - not infected
Peripheral Arterial Disease - focal occlusion right distal SFA
- admitted to med/surg
- appreciate ID and antibiotics stopped
- appreciate Podiatry consult -MRI without e/o osteo
- extremity arterial US with focal occlusion right distal SFA, vascular consulted (see below)
PAD
-now s/p right popliteal artery angioplasty/intravascular lithotripsy angioplasty 01/11/24
-continue asa/plavix/statin
-sent photo of LLE appearance to vascular
Dysphagia
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
-full liquids
-ENT consult appreciated - per Dr. Lima, patient would benefit from bougie dilation of esophagus, requires generalized anesthesia - best to follow up as outpatient once acute issues resolved - Dr. Lima dicussed with patient' daughter
TME
SIRS - possibly related to aspiration event
-resolved
Weakness - Generalized weakness versus dehydration.
-resolved
CAD
- continue asp/statin
GERD
- continue ppi
Leg Swelling - chronic according to patient and no dgx of chf. Echo from last year with normal ef, no wall motion changes or valvular disease
- elevate legs
- resume lasix
DVT PPX - lovenox sq
Code Status - full code
Anticipated Discharge: Within 24 hours
Subjective/Interval History
-
Date of Service: January 12, 2024
no pain
feeling well
hoping to leave hospital today or tomorrow
Objective Data
-
Labs:
Laboratory Results
01/12/24
06:18
WBC 6.2
Hgb 10.2 L
Hct 31.9 L
Plt Count 341
Sodium 144
Potassium 4.5
Chloride 107
Carbon Dioxide 26
BUN 16
Creatinine 0.5 L
Glucose 91
Calcium 9.9
Vital Signs:
Vital Signs
Temp Pulse Resp BP Pulse Ox
97.7 F 87 14 134/58 93
01/12/24 07:55 01/12/24 07:55 01/12/24 07:55 01/12/24 07:55 01/12/24 07:55
I&O
01/11/24 01/12/24 01/13/24
06:59 06:59 05:59
Intake Total 480 / 480 1050 / 1050 360 / 360
Output Total 250 / 250
Balance 480 / 480 800 / 800 360 / 360
Review of Systems
-
History Source: Patient
All other systems: Reviewed and negative
Physical Exam
-
General: No Apparent Distress
HEENT: PERRLA
Respiratory: Clear to Auscultation; Negative Wheezes
Cardiac: Regular Rhythm and S1/S2
GI: Soft and Nontender
Musculoskeletal: No Edema and Other (RLE wrapped; heal with wound yellow adherent slough and some pink; no exudate or significant surrounding erythema; left foot with some venous stasis discoloration compared to right - good pulses )
Skin: Warm and Dry; Negative Rash
Neuro: AO x 3
Psych: Calm
Data Reviewed
-
Diagnostic Radiology: Report Reviewed by me
Labs: Labs Reviewed by me
--- NOTE | 2024-01-12 12:52 | W.DS.TRANS ---
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
-
Discharge Instructions:
Discharge Diagnosis/Procedures peripheral arterial disease status post
angioplasty and intravascular lithotripsy;
enlarged cricopharyngeal bar
Additional Diets FULL LIQUID DIET
Activity As tolerated
Driving Restrictions As prior to admission
Bathing Restrictions None
Other Services VN,PT,OT
Instructions:
Stand-Alone Forms:
Changes to Home Medications: Yes
Discharge Medications:
DC Medications w/original date entered in [employer]
polyethylene glycol 3350 17 gram oral powder packet 17 grams PO DAILY Constipation 12/03/18
valacyclovir 1 gram tablet 1,000 mg PO BIDPRN PRN herpes simplex infection 12/03/18
cholecalciferol (vitamin D3) 50 mcg (2,000 unit) tablet (Vitamin D3) 50 mcg PO DAILY Supplement 05/09/22
aspirin 81 mg chewable tablet 81 mg PO DAILY #30 tabs 05/12/22
atorvastatin 40 mg tablet 40 mg PO QPM #30 tabs 05/12/22
hydrocortisone 2.5 % topical cream with perineal applicator (Procto-Med HC) 1 applic MI DAILY PRN hemorrhoids #30 grams 01/14/23
acetaminophen 500 mg tablet 500 mg PO Q6H PRN mild pain 06/17/23
furosemide 20 mg tablet 20 mg PO DAILY Fluid Retention/Swelling 06/17/23
clopidogrel 75 mg tablet 75 mg PO DAILY #30 tabs 01/12/24
collagenase clostridium histo. 250 unit/gram topical ointment (Santyl) 1 applic topical DAILY #15 grams 01/12/24
pantoprazole 40 mg tablet,delayed release 40 mg PO DAILY #30 tabs 01/12/24
white petrolatum 42 % topical ointment (Hydrophor) 1 applic topical DAILY #100 grams 01/12/24
Home Medication Changes
You are started on Plavix to take with Aspirin for peripheral arterial disease
You are prescribed Protonix to take for stomach protection while on Aspirin and Plavix
Pending Results: No
[2024-01-12 15:05] VITALS: BP 154/65
[2024-01-12] MEDS: LOVENOX 40 MG SC (17:21)
[2024-01-12] MEDS: LIPITOR 40 MG PO (17:22)
[2024-01-12 23:30] VITALS: BP 142/80
[2024-01-13] MEDS: SANTYL OINTMENT 1 APPLIC TOPICAL (04:59)
[2024-01-13 06:37] LABS: Blood Urea Nitrogen 14 mg/dl (7-17); Calcium 10.6 mg/dl (8.4-10.2); Carbon Dioxide 27 mmol/L (22-30); Chloride 106 mmol/L (98-107); Estimated Creatinine Clearance 61 ml/min; Glucose 94 mg/dl (70-99); Sodium 143 mmol/L (135-145); eGFR > 60.00
[2024-01-13 07:05] VITALS: BP 158/79
[2024-01-13] MEDS: LOW STRENGTH ASPIRIN 81 MG PO (08:48)
[2024-01-13] MEDS: PLAVIX 75 MG PO (08:48)
[2024-01-13] MEDS: LASIX 20 MG PO (08:48)
[2024-01-13] MEDS: REFRESH EYE DROPS (PF) 1 DROPS OPHTH ×2 (08:48→14:56)
[2024-01-13] MEDS: PROTONIX 40 MG PO (08:48)
[2024-01-13] MEDS: MIRALAX 17 GRAMS PO (08:50)
[2024-01-13] MEDS: HYDROPHOR 1 APPLIC TOPICAL (08:51)
--- NOTE | 2024-01-13 10:23 | W.PN.HOSP.TC ---
Today's Communication/Plan
-
OK for DC today
Assessment / Plan
Assessment / Plan
Patient who has a history of CAD, myositis, chronic lower extremity swelling, recent 2-month history of a nonhealing right heel decubitus wound/ulcer who presented to the emergency department from wound care with complaint of altered mental status
and difficulty breathing. concerns for aspiration with esophageal stricture found on recent EGD, dysphagia with concern for a primary neuromyopathy process. Also RLE heel wound with concerns for infection with elevated ESR/CRP.
01/05/2024 x-ray right foot: No fracture, dislocation or subluxation. There is likely patchy diffuse osteopenia. There is no periosteal reaction or erosive changes. No osteolytic or blastic lesions seen. No opaque foreign body identified.
Please see full dictation for additional detail. Film personally viewed.
Arterial US:
IMPRESSION:
1. Right ankle-brachial index 0.79, compared to 0.59 on prior. Right toe brachial index 0.48. There is focal occlusion of the right distal SFA, with reconstitution of the popliteal artery. Infrapopliteal disease may also be present.
2. Left ankle brachial index 1.48 (likely artificially elevated), compared to 1.09 on prior. Left toe brachial index 1.25. No focal arterial stenosis demonstrated on the left side, and waveforms are normal to the level of the ankle.
CXR
IMPRESSION:
Some mild left basilar opacification suggesting subsegmental atelectasis and/or pneumonia.
MRI RIGHT HEEL
IMPRESSION:
Mild osteitis of the cortex of the posterior calcaneus at the level of the hindfoot wound. No convincing MRI evidence for acute osteomyelitis.
01/11/24
Procedure:
1.) Intravascular lithotripsy to right popliteal artery occlusion (Javelin intravascular lithotripsy catheter)
2.) Drug-coated balloon angioplasty to right popliteal artery (5 mm x 150 mm Lutonix DCB)
3.) Balloon angioplasty and stenting (6 mm x 120 mm Supera stent; 6 mm angioplasty balloon)
4.) Diagnostic aortobiiliac arteriogram
5.) Diagnostic right lower extremity arteriogram
6.) Ultrasound-guided percutaneous retrograde right posterior tibial artery access
7.) Ultrasound-guided percutaneous access to the left common femoral artery
LE US 01/12/24
IMPRESSION:
No sonographic evidence for LEFT lower extremity deep venous thrombosis, although there is slightly limited evaluation of the peroneal and posterior tibial veins.
Wound - decubitus/heel ulcer on right heel - not infected
Peripheral Arterial Disease - focal occlusion right distal SFA
- admitted to med/surg
- appreciate ID and antibiotics stopped
- appreciate Podiatry consult -MRI without e/o osteo
- extremity arterial US with focal occlusion right distal SFA, vascular consulted (see below)
PAD
-now s/p right popliteal artery angioplasty/intravascular lithotripsy angioplasty 01/11/24
-continue asa/plavix/statin
-LLE US without DVT
Dysphagia
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
-full liquids
-ENT consult appreciated - per Dr. Lima, patient would benefit from bougie dilation of esophagus, requires generalized anesthesia - best to follow up as outpatient once acute issues resolved - Dr. Lima dicussed with patient' daughter
TME
SIRS - possibly related to aspiration event
-resolved
Weakness - Generalized weakness versus dehydration.
-resolved
CAD
- continue asp/statin
GERD
- continue ppi
Leg Swelling - chronic according to patient and no dgx of chf. Echo from last year with normal ef, no wall motion changes or valvular disease
- elevate legs
- resume lasix
DVT PPX - lovenox sq
Code Status - full code
Anticipated Discharge: Today
Subjective/Interval History
-
Date of Service: January 13, 2024
feels ready to leave the hospital toady
Objective Data
-
Labs:
Laboratory Results
01/13/24
05:43
Sodium 143
Potassium 4.0
Chloride 106
Carbon Dioxide 27
BUN 14
Creatinine 0.5 L
Glucose 94
Calcium 10.6 H
Vital Signs:
Vital Signs
Temp Pulse Resp BP Pulse Ox
97.6 F 101 18 158/79 92
01/13/24 07:05 01/13/24 07:05 01/13/24 07:05 01/13/24 07:05 01/13/24 07:05
I&O
01/12/24 01/13/24 01/14/24
07:59 06:59 06:59
Intake Total
Output Total
Balance
Review of Systems
-
History Source: Patient
All other systems: Reviewed and negative
Physical Exam
-
General: No Apparent Distress
HEENT: PERRLA
Respiratory: Clear to Auscultation; Negative Wheezes
Cardiac: Regular Rhythm and S1/S2
GI: Soft and Nontender
Musculoskeletal: No Edema and Other (RLE wrapped; heal with wound yellow adherent slough and some pink; no exudate or significant surrounding erythema; left foot with normal coloration today )
Skin: Warm and Dry; Negative Rash
Neuro: AO x 3
Psych: Calm
Data Reviewed
-
Diagnostic Radiology: Report Reviewed by me
Labs: Labs Reviewed by me
--- NOTE | 2024-01-13 11:27 | CM ---
CM following re: discharge planning.
Reviewed pt's chart, met with pt and spoke to pt's daughter yesterday.
Discharge order noted. pt is aware, expressed her agreement with discharge. IMM reviewed, placed on chart, pt has a copy.
CM spoke to [facility] JAMAL Elias and she confirmed that pt is accepted for admission today before 6:00 p.m.
Per MD pt will need VN services. per JAMAL Elias from [facility] they contracted with [facility]. A referral to [facility] made.
arranged transportation, BLS with pick pack worker time 16:30. PMNC completed and left with .
[facility] nursing report: [phone] and ask for JAMAL Elias
Please fax discharge instructions to:
[facility] at [phone]
[facility] at [phone]
D/C plan: return back to [facility] at [facility] with [facility] ZALDIVAR.
--- NOTE | 2024-01-13 13:04 | W.DCSUMMARY ---
Discharge Summary
Discharge Data
Date of Admission: 01/06/24
Date of Discharge: 01/13/24
-
Pending Results: No
Hospital Course
Discharging Physician : Dr. Gladys Ramachandran
Disposition : Home with Home Care
Principal Discharge diagnosis : peripheral arterial disease status post angioplasty and intravascular lithotripsy; enlarged cricopharyngeal bar
Hospital Course :
Mr. Janell Kahn is a 83 yo woman with hx CAD, myositis, chronic LE swelling, 2 month history of non-healing right heel wound, esophageal stricture found on recent EGD, presents to the ER with somnolence and shortness of breath. Triage vitals
significant for T 100.5. WBC 13.4. CXR with atelectasis versus pneumonia. She was initially started on IV antibiotics and admitted to medicine with ID consulting. Problems as below:
Regarding SIRS and concern for pneumonia, based on exam it was apparent this was more likely pneumonitis. Antibiotics stopped by ID and patient remained afebrile with normal mentation and no shortness of breath. ST consulted, patient underwent VSE
with finding of enlarged cricopharyngeal bar. Full liquids recommended and tolerated. ENT consulted in-house. Per Dr. Lima, patient could benefit from bougie dilation of esophagus. Plan is for this to occur as outpatient to ensure she is
strong enough to undergo the procedure.
She had a lower extremity arterial US that confirmed PAD. Vascular surgery consulted and she underwent right popliteal artery angioplasty/intravascular lithotripsy angioplasty on 01/11/24. She is started on Plavix in addition to aspirin. Protonix
is added for GI prophylaxis.
Podiatry was consulted regarding heel wound. MRI confirmed no osteomyelitis.
Patient had some LLE discoloration day prior to discharge. 2+ pulses. LLE US without DVT. Resolved on day of discharge.
Time spent on discharge was 35 minutes.
Important imaging findings :
CXR 01/05/24
IMPRESSION:
Some mild left basilar opacification suggesting subsegmental atelectasis and/or pneumonia.
Heel X-Ray
IMPRESSION: No radiographic evidence for osteomyelitis.
If there remains high clinical concern for osteomyelitis and further imaging evaluation is desired, consideration for MRI
LE Arterial US
IMPRESSION:
1. Right ankle-brachial index 0.79, compared to 0.59 on prior. Right toe brachial index 0.48. There is focal occlusion of the right distal SFA, with reconstitution of the popliteal artery. Infrapopliteal disease may also be present.
2. Left ankle brachial index 1.48 (likely artificially elevated), compared to 1.09 on prior. Left toe brachial index 1.25. No focal arterial stenosis demonstrated on the left side, and waveforms are normal to the level of the ankle.
LE MRI
IMPRESSION:
Mild osteitis of the cortex of the posterior calcaneus at the level of the hindfoot wound. No convincing MRI evidence for acute osteomyelitis.
LE Venous US
IMPRESSION:
No sonographic evidence for LEFT lower extremity deep venous thrombosis, although there is slightly limited evaluation of the peroneal and posterior tibial veins.
Procedure findings :
01/11/24
Procedure:
1.) Intravascular lithotripsy to right popliteal artery occlusion (Javelin intravascular lithotripsy catheter)
2.) Drug-coated balloon angioplasty to right popliteal artery (5 mm x 150 mm Lutonix DCB)
3.) Balloon angioplasty and stenting (6 mm x 120 mm Supera stent; 6 mm angioplasty balloon)
4.) Diagnostic aortobiiliac arteriogram
5.) Diagnostic right lower extremity arteriogram
6.) Ultrasound-guided percutaneous retrograde right posterior tibial artery access
7.) Ultrasound-guided percutaneous access to the left common femoral artery
Discharge Plan
-
Patient Disposition: Home with Home Care
Discharge Diagnosis/Procedures: peripheral arterial disease status post angioplasty and intravascular lithotripsy; enlarged cricopharyngeal bar
Additional Diets: FULL LIQUID DIET
Activity: As tolerated
Driving Restrictions: As prior to admission
Bathing Restrictions: None
Other Services: VN, PT and OT
Activity Restrictions/Additional Instructions:
Wound Care Instructions
R heel: clean with soap and water or saline, skin prep periwound, Santyl(bart thick), adaptic, abd pad and omar. change daily and prn drainage.
offloading heel boot when in bed at night
air cushion on pillow during day
Offloading shoe as recommended by wound Dr.
Increase protein in diet when able to tolerate
Follow up at wound care center call for an appointment.
Referrals:
Yovanny Judge III, MD [Active] - in one month (Please call for ultrasound and follow up appointments)
Doug Lima MD [Active] - 01/25/24
UNKNOWN - PT DOES,NOT KNOW [Family Provider] - in less than 1 week
Additional Discharge Medication Instructions: You are started on Plavix to take with Aspirin for peripheral arterial disease
You are prescribed Protonix to take for stomach protection while on Aspirin and Plavix
You will be on Aspirin and Plavix for 3-6 months (directed by Dr. Judge)
Prescriptions:
New
white petrolatum [Hydrophor] 42 % Ointment
1 applic topical DAILY Qty: 100 0RF
clopidogrel 75 mg Tablet
75 mg PO DAILY Qty: 30 0RF
pantoprazole 40 mg Tablet,Delayed Release (Dr/Ec)
40 mg PO DAILY Qty: 30 0RF
Santyl 250 unit/gram Ointment
1 applic topical DAILY Qty: 15 0RF
Continued
polyethylene glycol 3350 17 GRAMS powder in packet
17 grams PO DAILY
valacyclovir 1,000 MG tablet
1,000 mg PO BIDPRN PRN (Reason: herpes simplex infection)
cholecalciferol (vitamin D3) [Vitamin D3] 50 mcg (2,000 unit) Tablet
50 mcg PO DAILY
atorvastatin 40 mg Tablet
40 mg PO QPM Qty: 30 11RF
aspirin 81 mg Tablet,Chewable
81 mg PO DAILY Qty: 30 6RF
hydrocortisone [Procto-Med HC] 2.5 % cream with perineal applicator
1 applic [place] DAILY PRN (Reason: hemorrhoids) Qty: 30 0RF
acetaminophen 500 mg Tablet
500 mg PO Q6H PRN (Reason: mild pain)
furosemide 20 mg Tablet
20 mg PO DAILY
Discharge Orders:
Discharge Patient (As Directed); Ordered 01/13/24
Ordered By: Gladys Ramachandran
Discharge Date and Time
Print Language: GEORGIAN
[2024-01-13 15:05] VITALS: BP 128/85
== END 2024-01-13 16:26 | disposition home health service (06) | DRG 278 ==
LOC: 4 EAST ACU 04:28
PROVIDERS: Emergency Medicine; Internal Medicine; Nurse Practitioner; Nurse Practitioner Acute Care; Nurse Practitioner Family; Surgery Vascular Surgery; ADMITTING PHYSICIAN Internal Medicine; ATTENDING PHYSICIAN Student in an Organized Health Care Education/Training Program; CONSULT PHYSICIAN Internal Medicine Infectious Disease; CONSULT PHYSICIAN Student in an Organized Health Care Education/Training Program; CONSULT PHYSICIAN Surgery Vascular Surgery; EMERGENCY PHYSICIAN Student in an Organized Health Care Education/Training Program; OTHER PHYSICIAN Otolaryngology
PROC: 04FM3ZZ Fragmentation of Right Popliteal Artery, Percutaneous Approach (ICD-10-PCS; 2024-01-11)
PROC: B41D1ZZ Fluoroscopy of Aorta and Bilateral Lower Extremity Arteries using Low Osmolar Contrast (ICD-10-PCS; 2024-01-11)
PROC: 047M3D1 Dilation of Right Popliteal Artery with Intraluminal Device, using Drug-Coated Balloon, Percutaneous Approach (ICD-10-PCS; 2024-01-11)
DX: I70.221 Atherosclerosis of native arteries of extremities with rest pain, right leg (principal); G92.8 Other toxic encephalopathy; L89.613 Pressure ulcer of right heel, stage 3; J18.9 Pneumonia, unspecified organism; R65.10 Systemic inflammatory response syndrome (SIRS) of non-infectious origin without acute organ dysfunction; Z87.891 Personal history of nicotine dependence; Z11.52 Encounter for screening for COVID-19; I25.10 Atherosclerotic heart disease of native coronary artery without angina pectoris; K21.9 Gastro-esophageal reflux disease without esophagitis; M79.89 Other specified soft tissue disorders; M60.9 Myositis, unspecified; K22.2 Esophageal obstruction; Z79.82 Long term (current) use of aspirin; Z98.61 Coronary angioplasty status
CPT/HCPCS: 51701; 71046; 73630; 73650; 73718; 74230; 75625; 75716; 76937; 80048; 80053; 81003; 82962; 83605; 84443; 85025; 85027; 85610; 85652; 85730; 86140; 87070; 87502; 87811; 92526; 92610; 92611; 93005; 93922; 93925; 93971; 96361; 96365; 96366; 96375; 97163; 97167; 97530; 99285; C1725; C1769; C1894; C2623; C9765; Q9967

== ENCOUNTER 2024-01-21 12:25 | Emergency (ER) | payer MEDICARE, OTHER, SELFPAY ==
[2024-01-21] VITALS (7 sets, daily range): BP systolic 100–128; BP diastolic 60–91; BMI 23.9
[2024-01-21 12:54] LABS: % Basophils 0.3 % (0-2); % Eosinophils 1.1 % (0-6); % Immature Granulocytes 0.4 % (0-0.5); % Lymphocytes 12.1 % (20.5-51.1); % Monocytes 8.2 % (1.7-9.3); % Neutrophils 77.9 % (42.2-75.2); Absolute Eosinophils 0.1 10^3/uL (0-0.7); Absolute Immature Granulocytes 0.1 10^3/uL (0-0.05); Absolute Lymphocytes 1.4 10^3/uL (1.2-3.4); Absolute Monocytes 0.9 10^3/uL (0.1-0.6); Hematocrit 32.5 % (37.0-47.0); Hemoglobin 10.5 g/dL (12.0-16.0); Mean Corp Hgb Conc. 32.3 g/dL (33.0-37.0); Mean Corpuscular Hgb 26.8 pg (27.0-31.0); Mean Corpuscular Volume 82.9 fL (81.0-99.0); Nucleated Red Blood Cells % 0 %; Platelet Count 417 10^3/uL (130-400); Red Blood Cell Count 3.92 10^6/uL (4.20-5.40); Red Cell Dist. Width 14.4 % (11.5-14.5); White Blood Cell Count 11.5 10^3/uL (4.8-10.8)
[2024-01-21 13:06] LABS: Lactic Acid 1.1 mmol/L (0.7-2.0)
[2024-01-21 13:10] LABS: COVID-19 Antigen Negative (Negative)
--- NOTE | 2024-01-21 13:11 | ED.GENMED ---
History of Present Illness
General
Chief Complaint: Fever
Source: patient
Exam Limitations: none
Time Seen by Provider: 01/21/24 13:07
Nursing documentation reviewed up to this point in time: agreed with
History of Present Illness
History of Present Illness:
Patient is an 83-year-old female past medical history of CAD chronic leg swelling esophageal stricture myositis presents to the ER for evaluation.
Patient presents awake alert she is oriented person place. She is aware that she was sent here for fever. She has no complaints. She denies any chills cough difficulty breathing. She does not ambulate she transfers to the toilet when she feels
the urge to urinate. She denies any urinary frequency urgency or dysuria. Denies any abdominal pain nausea vomiting fever chills.
Patient was just admitted January 05 and discharged January 12. Patient had right popliteal artery angioplasty/intravascular lithotripsy angioplasty. She has a known heel wound. Patient is on Plavix.
Past History
Past History
ED Past Medical History: Cancer (kidney), GERD (esophogeal restrictions), Hypercholesterolemia and Other (Osteoporosis, PNA, Bowel obstruction, esophageal strictures, hiatal hernia, Multiple body fractures)
ED Past Surgical History: Appendectomy, Cholecystectomy, (X 2), Orthopedic, Urological (left kidney removed for CA) and Other (hemorrhoidectomy)
Social History
Tobacco: Former smoker
Alcohol: None
Drug: None
Personal:
Living: alone
Family History
Family History: Other
Review of Systems
Review of Systems
Allergies reviewed?: Yes
All Other Systems: ROS reviewed and negative except as documented in HPI and ROS
Constitutional: Reports fever and other (fever as per NH )
EENT: Reports no symptoms
Respiratory: Reports no symptoms
Cardiac: Reports no symptoms
ABD/GI: Reports no symptoms
Musculoskeletal: Reports no symptoms
Skin: Reports no symptoms
Neurological: Reports no symptoms
Hematologic/Lymphatic: Reports no symptoms
Psychiatric: Reports no symptoms
Phy Exam
General Physical Exam
General Presentation: no apparent distress
General age: appears stated age
General Skin: warm and dry
General Habitus: normal
General Mental: alert
General Hydration: appears well hydrated
Cardiovascular Exam
Cardiovascular Exam: regular rate/rhythm, no murmur and normal peripheral pulses
Pulmonary Exam
Pulmonary Exam: lungs clear and no respiratory distress
Gastrointestinal Exam
Gastrointestinal Exam: non tender and soft
Neurological Exam
Neurological Exam: alert and oriented x3
Musculoskeletal Exam
Musculoskeletal Exam: full ROM and other (Wound to posterior heel appears to be healing with granulation tissue no purulent drainage or erythema)
Skin Exam
Skin Exam: normal color and warm/dry
Psychiatric Exam
Psychiatric Exam: normal mood/affect
Course
Orders/Labs/Results
Orders:
Orders
01/21/24 12:27
EKG [Electrocardiogram (*1)] Urgent
Reason for Study: Shortness of Breath
01/21/24 12:28
EKG- Treatment ONCE
01/21/24 12:42
COVID-19 Antigen Urgent
Source: Nasal Swab
Complete Blood Count/With Diff Urgent
Lactic Acid Urgent
Influenza A+B Rapid Molecular Urgent
DL Source: Nasal Swab
Specimen Description:
01/21/24 13:14
Comprehensive Metabolic Panel Urgent
01/21/24 13:23
Straight cath- Treatment ONCE
01/21/24 13:24
Chest [CR Chest - 2 Views ] Urgent
Comment:
Reason For Exam: fever
01/21/24 13:41
UA Reflex to Culture [Urinalysis Reflex To Culture] Urgent
Date Specimen was Collected: 01/21/24
Time Specimen was Collected: 13:25
Abnormal Lab Results
01/21/24 01/21/24
12:42 13:14
WBC 11.5 H 10^3/uL
(4.8-10.8)
RBC 3.92 L 10^6/uL
(4.20-5.40)
Hgb 10.5 L g/dL
(12.0-16.0)
Hct 32.5 L %
(37.0-47.0)
MCH 26.8 L pg
(27.0-31.0)
MCHC 32.3 L g/dL
(33.0-37.0)
Plt Count 417 H 10^3/uL
(130-400)
Abs Immat Gran (auto) 0.1 H 10^3/uL
(0-0.05)
Absolute Neuts (auto) 9.0 H 10^3/uL
(1.4-6.5)
Absolute Monos (auto) 0.9 H 10^3/uL
(0.1-0.6)
Neutrophils % 77.9 H %
(42.2-75.2)
Lymphocytes % 12.1 L %
(20.5-51.1)
Creatinine 0.4 L mg/dL
(0.6-1.0)
Calcium 10.5 H mg/dl
(8.4-10.2)
Albumin 3.4 L g/dl
(3.5-5.0)
01/21/24 12:42
01/21/24 13:14
Vital Signs
Initial and Last Documented VS:
Initial Vital Signs
Temp Pulse Resp BP Pulse Ox
98 F 108 18 128/91 99
01/21/24 12:28 01/21/24 12:28 01/21/24 12:28 01/21/24 12:28 01/21/24 12:28
Last Documented Vital Signs
Temp Pulse Resp BP Pulse Ox
98 F 108 18 128/91 99
01/21/24 12:28 01/21/24 12:28 01/21/24 12:28 01/21/24 12:28 01/21/24 12:28
MDM/Problems Addressed
Differential Diagnosis Includes:
Not limited to viral syndrome, COVID, flu, less likely pneumonia UTI skin wound/cellulitis
MDM/Problems Addressed:
Patient is an 83-year-old female sent for fever from [facility]. Patient currently had a fever of 101 last night. She is a chronic wound to the right heel. Patient presents awake alert no acute distress. Patient is afebrile here
white count minimally elevated however urinalysis and chest x-ray negative. Wound to right heel appearance healing with healing granulation tissue. Chemistries are unremarkable she is in no acute distress COVID and flu are negative. No indication
for admission at this time patient very well-appearing.
I did speak with patient's daughter. I attempted to call [facility] however no answer only voicemail.
*Radiology
Radiology exam reviewed: radiology read reviewed
*Pulse Oximetry
Patient hypoxic: no
*Critical Care Note
Total Time (30-74mins, 75-104mins- exclusive of procedures): Not Applicable
Data Reviewed
Review of Other/Old Records Reveals: Discharge Summary
ED Attending Note
-
Portions of this chart may have been created with voice recognition software.� Occasional wrong word or��sound alike� substitutions may have occurred due to the inherent limitations of voice recognition software.
Discharge Plan
Departure
Patient Disposition: [facility]ci/SNF
Date of Disposition: 01/21/24
Time of Disposition: 15:10
Patient with high blood pressure during this ER visit?: Yes
Condition: Fair
Covid-19: Not Applicable
Discharge Problem:
history of fever
Instructions: Fever, Adult (DC), BLOOD PRESSURE
Prescriptions:
No Action
polyethylene glycol 3350 17 GRAMS powder in packet
17 grams PO DAILY
valacyclovir 1,000 MG tablet
1,000 mg PO BIDPRN PRN (Reason: herpes simplex infection)
cholecalciferol (vitamin D3) [Vitamin D3] 50 mcg (2,000 unit) Tablet
50 mcg PO DAILY
atorvastatin 40 mg Tablet
40 mg PO QPM Qty: 30 11RF
aspirin 81 mg Tablet,Chewable
81 mg PO DAILY Qty: 30 6RF
acetaminophen 500 mg Tablet
500 mg PO Q6HPRN PRN (Reason: mild pain)
furosemide 20 mg Tablet
20 mg PO DAILY
clopidogrel 75 mg Tablet
75 mg PO DAILY Qty: 30 0RF
pantoprazole 40 mg Tablet,Delayed Release (Dr/Ec)
40 mg PO DAILY Qty: 30 0RF
hydrocortisone [Procto-Med HC] 2.5 % cream with perineal applicator
1 applic [place] DAILYPRN PRN (Reason: hemorrhoids)
Santyl 250 unit/gram ointment
1 applic topical DAILY
white petrolatum [Hydrophor] 42 % ointment
1 applic topical DAILY
Referrals:
Ethan Rendon DO [Family Provider] -
Activity Restrictions/Additional Instructions:
Patient was sent for fever. Patient did not have a fever here in the ER white count was minimally elevated to 11.5 however chest x-ray and urinalysis were all negative. She was tested for COVID and flu all of which were negative. Her wound to her
heel appears to be healing.
Patient must be evaluated by family doctor in the next several days. return if any worsening of symptoms
Interventions
Interventions:
*Risk Screen - Suicide Last Done: 01/21/24 12:32
*General Assessment Last Done: 01/21/24 12:32
*Neglect/Abuse Screening Last Done: 01/21/24 12:32
ED- Fall Risk Assessment Last Done: 01/21/24 12:40
*ED COVID-19 Vaccine History Last Done: 01/21/24 12:32
ED- Neurological Assessment Last Done: 01/21/24 12:34
ED-Skin Assessment Last Done: 01/21/24 12:34
Discharge Date and Time
Print Language: DANISH
[2024-01-21 13:41] LABS: ALT (SGPT) 22 U/L (0-35); AST (SGOT) 28 U/L (14-36); Albumin 3.4 g/dl (3.5-5.0); Alkaline Phosphatase 83 U/L (38-126); Blood Urea Nitrogen 9 mg/dl (7-17); Calcium 10.5 mg/dl (8.4-10.2); Carbon Dioxide 26 mmol/L (22-30); Chloride 100 mmol/L (98-107); Estimated Creatinine Clearance 61 ml/min; Glucose 94 mg/dl (70-99); Potassium 3.9 mmol/L (3.5-5.1); Sodium 139 mmol/L (135-145); Total Bilirubin 0.6 mg/dl (0.2-1.3); Total Protein 6.7 g/dl (6.3-8.2); eGFR > 60.00
[2024-01-21 13:59] LABS: Urine Albumin Trace (Neg - Trace); Urine Bilirubin Negative (Negative); Urine Character Clear (Clear); Urine Color Yellow; Urine Glucose Negative (Negative); Urine Ketone Negative (Negative); Urine Leukocyte Negative (Negative); Urine Nitrite Negative (Negative); Urine Occult Blood Negative (Negative); Urine Specific Gravity 1.015 (<1.030); Urine Urobilinogen Negative (Neg - 1+)
== END 2024-01-21 19:01 ==
LOC: EMR 12:25
PROVIDERS: Nurse Practitioner; EMERGENCY PHYSICIAN Emergency Medicine; FAMILY PHYSICIAN Family Medicine
DX: R50.9 Fever, unspecified (principal); E78.00 Pure hypercholesterolemia, unspecified; Z85.528 Personal history of other malignant neoplasm of kidney; Z87.891 Personal history of nicotine dependence; Z90.49 Acquired absence of other specified parts of digestive tract; Z79.02 Long term (current) use of antithrombotics/antiplatelets; M81.0 Age-related osteoporosis without current pathological fracture; K21.9 Gastro-esophageal reflux disease without esophagitis
CPT/HCPCS: 99285; 71046; 80053; 81003; 83605; 85025; 87502; 87811; 93005

== ENCOUNTER → 2024-01-25 13:36 | Outpatient (REF) | payer MEDICARE, OTHER, SELFPAY | LOC: WOUND 13:36 | PROVIDERS: ATTENDING PHYSICIAN Surgery; FAMILY PHYSICIAN Family Medicine | DX: L89.613 Pressure ulcer of right heel, stage 3 (principal); S82.141S Displaced bicondylar fracture of right tibia, sequela; X58.XXXS Exposure to other specified factors, sequela; I73.9 Peripheral vascular disease, unspecified; K21.9 Gastro-esophageal reflux disease without esophagitis; I87.2 Venous insufficiency (chronic) (peripheral); K76.89 Other specified diseases of liver; G72.41 Inclusion body myositis [IBM]; Z90.5 Acquired absence of kidney; I25.10 Atherosclerotic heart disease of native coronary artery without angina pectoris | CPT/HCPCS: 11043 ==

== ENCOUNTER → 2024-02-04 11:15 | Outpatient (REF) | payer MEDICARE, OTHER, SELFPAY | LOC: WOUND 11:15 | PROVIDERS: ATTENDING PHYSICIAN Surgery; FAMILY PHYSICIAN Internal Medicine | DX: L89.613 Pressure ulcer of right heel, stage 3 (principal); S82.141S Displaced bicondylar fracture of right tibia, sequela; X58.XXXS Exposure to other specified factors, sequela; K21.9 Gastro-esophageal reflux disease without esophagitis; I73.9 Peripheral vascular disease, unspecified; I87.2 Venous insufficiency (chronic) (peripheral); K76.89 Other specified diseases of liver; G72.41 Inclusion body myositis [IBM]; Z90.5 Acquired absence of kidney | CPT/HCPCS: 99213 ==

== ENCOUNTER → 2024-02-08 10:12 | Outpatient (REF) | payer MEDICARE, OTHER, SELFPAY | LOC: RAD 10:12 | PROVIDERS: ATTENDING PHYSICIAN Surgery Vascular Surgery | DX: I77.9 Disorder of arteries and arterioles, unspecified (principal); I71.40 Abdominal aortic aneurysm, without rupture, unspecified | CPT/HCPCS: 76770 ==

== ENCOUNTER → 2024-02-18 11:10 | Outpatient (REF) | payer MEDICARE, OTHER, SELFPAY | LOC: RAD 11:10 | PROVIDERS: ATTENDING PHYSICIAN Surgery Vascular Surgery; FAMILY PHYSICIAN Family Medicine | DX: I77.9 Disorder of arteries and arterioles, unspecified (principal) | CPT/HCPCS: 93922; 93925 ==

== ENCOUNTER → 2024-02-22 14:52 | Outpatient (REF) | payer MEDICARE, OTHER, SELFPAY | LOC: WOUND 14:52 | PROVIDERS: ATTENDING PHYSICIAN Surgery; FAMILY PHYSICIAN Family Medicine | DX: L89.613 Pressure ulcer of right heel, stage 3 (principal); S82.141S Displaced bicondylar fracture of right tibia, sequela; I73.9 Peripheral vascular disease, unspecified; I87.2 Venous insufficiency (chronic) (peripheral); K76.89 Other specified diseases of liver; G72.41 Inclusion body myositis [IBM]; I25.10 Atherosclerotic heart disease of native coronary artery without angina pectoris; Z90.5 Acquired absence of kidney; X58.XXXS Exposure to other specified factors, sequela | CPT/HCPCS: 11042 ==

== ENCOUNTER 2024-02-23 09:21 | Emergency (ER) | payer MEDICARE, OTHER, SELFPAY ==
[2024-02-23 09:31] VITALS: BP 108/76; BMI 25.3
--- NOTE | 2024-02-23 10:12 | ED.GENMED ---
History of Present Illness
General
Chief Complaint: Bowel Problem
Source: patient
Time Seen by Provider: 02/23/24 09:57
History of Present Illness
History of Present Illness:
83yoF with a history of coronary artery disease and hyperlipidemia presenting from her [facility] via EMS for evaluation of constipation. Patient has not had a bowel movement in the past 2-3 days. She was trying to defecate today and her stool
became stuck in her rectum. She was having significant rectal discomfort and EMS was called. Patient denies any abdominal pain, vomiting, or difficulty urinating.
Past History
Past History
ED Past Medical History: Cancer (kidney), GERD (esophogeal restrictions), Hypercholesterolemia and Other (Osteoporosis, PNA, Bowel obstruction, esophageal strictures, hiatal hernia, Multiple body fractures)
ED Past Surgical History: Appendectomy, Cholecystectomy, (X 2), Orthopedic, Urological (left kidney removed for CA) and Other (hemorrhoidectomy)
Social History
Tobacco: Former smoker
Alcohol: None
Drug: None
Personal:
Living: alone
Family History
Family History: Other
Phy Exam
General Physical Exam
General Presentation: well appearing and no apparent distress
General Skin: warm and dry
General Habitus: elderly
General Mental: alert
ENT Exam
ENT Exam: normocephalic
Pulmonary Exam
Pulmonary Exam: no respiratory distress
Gastrointestinal Exam
Gastrointestinal Exam: non tender, soft and non distended
Rectal Exam: impacted stool and other (Hard brown stool noted protruding out of the rectum.)
Neurological Exam
Neurological Exam: alert
[place] Coma Scale
Eye Opening: Spontaneous
Verbal Response: Oriented
Motor Response: Obeys Commands
GCS Total Score: 15
Skin Exam
Skin Exam: normal color and warm/dry
Psychiatric Exam
Psychiatric Exam: normal mood/affect
Course
Orders/Labs/Results
Orders:
Orders
02/23/24 10:12
Enema- Treatment ONCE
Type: Milk of Molasses
Vital Signs
Initial and Last Documented VS:
Initial Vital Signs
Temp Pulse Resp BP Pulse Ox
97.5 F 84 18 108/76 97
02/23/24 09:31 02/23/24 09:31 02/23/24 09:31 02/23/24 09:31 02/23/24 09:31
Last Documented Vital Signs
Temp Pulse Resp BP Pulse Ox
97.5 F 84 18 108/76 97
02/23/24 09:31 02/23/24 09:31 02/23/24 09:31 02/23/24 09:31 02/23/24 09:31
MDM/Problems Addressed
Differential Diagnosis Includes:
83yoF here with a fecal impaction. Patient unable to pass stool today and c/o rectal pain. No abd pain, vomiting, difficulty urinating. VSS. She is non-toxic appearing. Abdominal exam is benign. There is hard stool protruding out of the rectum.
Differential diagnosis includes but is not limited to: fecal impaction, constipation, stercoral colitis, doubt acute surgical process
Initial ED plan: Manual disimpaction performed and stool removed from rectal vault. Patient feeling significantly improved after disimpaction. Will order milk of molasses enema.
*Critical Care Note
Total Time (30-74mins, 75-104mins- exclusive of procedures): Not Applicable
Update Note
Update Note:
Patient now refusing enema and would like to be discharged. Patient able to urinate several times after disimpaction. Patient stable for discharge back to her nursing facility.
ED Attending Note
-
Portions of this chart may have been created with voice recognition software.� Occasional wrong word or��sound alike� substitutions may have occurred due to the inherent limitations of voice recognition software.
Discharge Plan
Departure
Patient Disposition: Home (Routine Discharge)
Date of Disposition: 02/23/24
Time of Disposition: 11:34
Patient with high blood pressure during this ER visit?: No
Discharge Problem:
Fecal impaction in rectum
Instructions: Fecal Impaction (DC)
Prescriptions:
No Action
polyethylene glycol 3350 17 GRAMS powder in packet
17 grams PO DAILY
valacyclovir 1,000 MG tablet
1,000 mg PO BIDPRN PRN (Reason: herpes simplex infection)
cholecalciferol (vitamin D3) [Vitamin D3] 50 mcg (2,000 unit) Tablet
50 mcg PO DAILY
atorvastatin 40 mg Tablet
40 mg PO QPM Qty: 30 11RF
aspirin 81 mg Tablet,Chewable
81 mg PO DAILY Qty: 30 6RF
acetaminophen 500 mg Tablet
500 mg PO Q6HPRN PRN (Reason: mild pain)
furosemide 20 mg Tablet
20 mg PO DAILY
clopidogrel 75 mg Tablet
75 mg PO DAILY Qty: 30 0RF
pantoprazole 40 mg Tablet,Delayed Release (Dr/Ec)
40 mg PO DAILY Qty: 30 0RF
hydrocortisone [Procto-Med HC] 2.5 % cream with perineal applicator
1 applic [place] DAILYPRN PRN (Reason: hemorrhoids)
Santyl 250 unit/gram ointment
1 applic topical DAILY
white petrolatum [Hydrophor] 42 % ointment
1 applic topical DAILY
Referrals:
Ethan Rendon DO [Family Provider] -
Activity Restrictions/Additional Instructions:
Take Miralax 1-2 daily as needed for constipation.
Please follow-up with your family doctor. Return to the ER with any new or worsening symptoms.
Interventions
Interventions:
*Risk Screen - Suicide Last Done: 02/23/24 09:27
*General Assessment Last Done: 02/23/24 09:27
*Neglect/Abuse Screening Last Done: 02/23/24 09:27
AW-Xsoorv-Wzcwpjqpju Assessment Last Done: 02/23/24 09:51
Discharge Date and Time
Print Language: MOHAWK
== END 2024-02-23 12:36 | disposition home or self-care (01) ==
LOC: EMR 09:21
PROVIDERS: EMERGENCY PHYSICIAN Emergency Medicine; FAMILY PHYSICIAN Family Medicine
DX: K56.41 Fecal impaction (principal); E78.00 Pure hypercholesterolemia, unspecified; K21.9 Gastro-esophageal reflux disease without esophagitis; I25.10 Atherosclerotic heart disease of native coronary artery without angina pectoris; M81.0 Age-related osteoporosis without current pathological fracture; Z85.528 Personal history of other malignant neoplasm of kidney; Z87.891 Personal history of nicotine dependence; Z90.49 Acquired absence of other specified parts of digestive tract
CPT/HCPCS: 99282

== ENCOUNTER → 2024-03-10 13:18 | Outpatient (REF) | payer MEDICARE, OTHER, SELFPAY | LOC: WOUND 13:18 | PROVIDERS: ATTENDING PHYSICIAN Surgery; FAMILY PHYSICIAN Family Medicine | DX: L89.613 Pressure ulcer of right heel, stage 3 (principal); S82.141S Displaced bicondylar fracture of right tibia, sequela; X58.XXXS Exposure to other specified factors, sequela; K21.9 Gastro-esophageal reflux disease without esophagitis; I73.9 Peripheral vascular disease, unspecified; I87.2 Venous insufficiency (chronic) (peripheral); K76.89 Other specified diseases of liver; G72.41 Inclusion body myositis [IBM]; Z90.5 Acquired absence of kidney; I25.10 Atherosclerotic heart disease of native coronary artery without angina pectoris | CPT/HCPCS: 99213 ==

== ENCOUNTER → 2024-03-28 10:52 | Outpatient (REF) | payer MEDICARE, OTHER, SELFPAY | LOC: WOUND 10:52 | PROVIDERS: ATTENDING PHYSICIAN Surgery; FAMILY PHYSICIAN Family Medicine | DX: L89.613 Pressure ulcer of right heel, stage 3 (principal); S82.141A Displaced bicondylar fracture of right tibia, initial encounter for closed fracture; K21.9 Gastro-esophageal reflux disease without esophagitis; I73.9 Peripheral vascular disease, unspecified; I87.2 Venous insufficiency (chronic) (peripheral); K76.89 Other specified diseases of liver; G72.41 Inclusion body myositis [IBM]; Z90.5 Acquired absence of kidney; I25.10 Atherosclerotic heart disease of native coronary artery without angina pectoris; X58.XXXA Exposure to other specified factors, initial encounter | CPT/HCPCS: 11042 ==

== ENCOUNTER 2024-04-02 06:14 | Day surgery (SDC) | payer MEDICARE, OTHER, SELFPAY ==
--- NOTE | 2024-04-02 09:35 | HP.FOC2 ---
Focused History & Physical
Chief Complaint
HPI:
Chief Complaint: Dysphagia
HPI / Indication for Planned Procedure: Pt with long h/o of dysphagia, worsening. Seen by GI and noted to have upper esophageal stricture. Unable to dilate with endoscope. Referred to me for esophageal dilation.
Relevant Past Medical History: Coronary Artery Disease and Other (Kidney CA, Osteoporosis, GERD, Hyperlipidemia, Encephalopathy)
Relevant Social History: Negative
Relevant Family History: Negative
Relevant Past Surgical History: Positive for (Nephrectomy, LE vascular graft)
Review of Systems
Review of Pertinent Systems: All Systems Negative
Medication
See Medication form for detailed medications: Yes
Medication List (including Herbals & OTC):
polyethylene glycol 3350 17 gram oral powder packet 17 grams PO DAILY Constipation 12/03/18
valacyclovir 1 gram tablet 1,000 mg PO BIDPRN PRN herpes simplex infection 12/03/18
cholecalciferol (vitamin D3) 50 mcg (2,000 unit) tablet (Vitamin D3) 50 mcg PO DAILY Supplement 05/09/22
aspirin 81 mg chewable tablet 81 mg PO DAILY #30 tabs 05/12/22
atorvastatin 40 mg tablet 40 mg PO QPM #30 tabs 05/12/22
acetaminophen 500 mg tablet 500 mg PO Q6HPRN PRN mild pain 06/17/23
furosemide 20 mg tablet 20 mg PO DAILY Fluid Retention/Swelling 06/17/23
clopidogrel 75 mg tablet 75 mg PO DAILY #30 tabs 01/12/24
pantoprazole 40 mg tablet,delayed release 40 mg PO DAILY #30 tabs 01/12/24
collagenase clostridium histo. 250 unit/gram topical ointment (Santyl) 1 applic topical DAILY wound 01/21/24
hydrocortisone 2.5 % topical cream with perineal applicator (Procto-Med HC) 1 applic [place] DAILYPRN PRN hemorrhoids 01/21/24
white petrolatum 42 % topical ointment (Hydrophor) 1 applic topical DAILY dry skin 01/21/24
Medications Reviewed: Yes
Allergies and Reactions
Patient has Allergies: No
Noted Allergies and Reactions:
Allergy/AdvReac Type Severity Reaction Status Date / Time
No Known Allergies Allergy Verified 02/23/24 09:30
Pertinent Physical Exam
All Other Systems: Negative
Head/Neck: Normal
Neurological: Normal
Diagnosis / Assessment
Upper esophageal stricture with dysphagia
Plan / Procedure
Bougie dilation with endoscopic visualization with GI. Pt and daughter aware of risks, including bleeding, esophageal trauma, infection, mediastinitis. Informed consent obtained. Pt has stopped Plavix x 5 days. Remains on ASA, as per vascular.
Anesthesia/Sedation to be done by Anesthesia Provider: Yes
[2024-04-02 09:48] VITALS: BP 133/95
[2024-04-02 09:56] VITALS: BMI 23.2
[2024-04-02 10:17] VITALS: BMI 23.2
[2024-04-02 11:15] VITALS: BP 121/67
[2024-04-02 11:30] VITALS: BP 137/93
[2024-04-02 11:37] VITALS: BP 127/83
== END 2024-04-02 12:05 ==
LOC: SDS 06:14
PROVIDERS: ATTENDING PHYSICIAN Internal Medicine Gastroenterology
DX: K22.2 Esophageal obstruction (principal); K31.7 Polyp of stomach and duodenum; R13.10 Dysphagia, unspecified
CPT/HCPCS: 43249; C1726

== ENCOUNTER → 2024-04-11 10:49 | Outpatient (REF) | payer MEDICARE, OTHER, SELFPAY | LOC: WOUND 10:49 | PROVIDERS: ATTENDING PHYSICIAN Surgery; FAMILY PHYSICIAN Family Medicine | DX: L89.613 Pressure ulcer of right heel, stage 3 (principal); S82.141A Displaced bicondylar fracture of right tibia, initial encounter for closed fracture; K21.9 Gastro-esophageal reflux disease without esophagitis; I73.9 Peripheral vascular disease, unspecified; I87.2 Venous insufficiency (chronic) (peripheral); K76.89 Other specified diseases of liver; G72.41 Inclusion body myositis [IBM]; Z90.5 Acquired absence of kidney; I25.10 Atherosclerotic heart disease of native coronary artery without angina pectoris; X58.XXXA Exposure to other specified factors, initial encounter | CPT/HCPCS: 11042 ==

== ENCOUNTER → 2024-04-25 14:47 | Outpatient (REF) | payer MEDICARE, OTHER, SELFPAY | LOC: WOUND 14:47 | PROVIDERS: ATTENDING PHYSICIAN Surgery; FAMILY PHYSICIAN Family Medicine | DX: L89.613 Pressure ulcer of right heel, stage 3 (principal); I73.9 Peripheral vascular disease, unspecified; I87.2 Venous insufficiency (chronic) (peripheral); S82.141S Displaced bicondylar fracture of right tibia, sequela; X58.XXXS Exposure to other specified factors, sequela | CPT/HCPCS: 99213 ==

== ENCOUNTER → 2024-04-25 15:30 | Outpatient (REF) | payer MEDICARE, OTHER, SELFPAY | LOC: RAD 15:30 | PROVIDERS: ATTENDING PHYSICIAN Surgery; FAMILY PHYSICIAN Family Medicine | DX: L89.613 Pressure ulcer of right heel, stage 3 (principal) | CPT/HCPCS: 73630 ==

== ENCOUNTER → 2024-05-16 14:51 | Outpatient (REF) | payer MEDICARE, OTHER, SELFPAY | LOC: WOUND 14:51 | PROVIDERS: ATTENDING PHYSICIAN Surgery; FAMILY PHYSICIAN Family Medicine | DX: L89.613 Pressure ulcer of right heel, stage 3 (principal); S82.141A Displaced bicondylar fracture of right tibia, initial encounter for closed fracture; K21.9 Gastro-esophageal reflux disease without esophagitis; I73.9 Peripheral vascular disease, unspecified; I87.2 Venous insufficiency (chronic) (peripheral); K76.89 Other specified diseases of liver; G72.41 Inclusion body myositis [IBM]; Z90.5 Acquired absence of kidney; I25.10 Atherosclerotic heart disease of native coronary artery without angina pectoris; X58.XXXA Exposure to other specified factors, initial encounter | CPT/HCPCS: 99213 ==

== ENCOUNTER 2024-05-30 09:07 | Day surgery (SDC) | payer MEDICARE, OTHER, SELFPAY ==
[2024-05-30] VITALS (15 sets, daily range): BP systolic 109–147; BP diastolic 53–89
--- NOTE | 2024-05-30 09:04 | HP.FOC2 ---
Focused History & Physical
Chief Complaint
HPI:
Chief Complaint: Right lower extremity chronic wound, peripheral arterial disease
HPI / Indication for Planned Procedure: This is an 83-year-old female with significant past medical history for coronary artery disease, nephrectomy due to renal carcinoma, osteoporosis, GERD, hyperlipidemia, esophageal stricture, and dysphagia who
presents to [facility] for scheduled right lower extremity angiogram with Dr. Yovanny Judge III for continued nonhealing right lower extremity chronic wound and peripheral arterial disease. Patient denies recent hospitalization or trauma,
endorses she is at baseline health. Denies recent cough, fever, dyspnea on exertion, chills, nausea, vomiting, abdominal pain, and loose stool.
Relevant Past Medical History: Coronary Artery Disease and Other (Osteoporosis, GERD, hyperlipidemia, Encephalopathy, dysphagia, esophageal stricture)
Relevant Past Surgical History: Positive for (Nephrectomy, IVL to right popliteal artery occlusion ([place] intravascular lithotripsy catheter, drug coated balloon angioplasty to right popliteal artery, balloon angioplasty and stenting on 01/11/24 )
Review of Systems
Review of Pertinent Systems: All Systems Negative
Medication
See Medication form for detailed medications: Yes
Medication List (including Herbals & OTC):
polyethylene glycol 3350 17 gram oral powder packet 17 grams PO DAILY Constipation 12/03/18
valacyclovir 1 gram tablet 1,000 mg PO BIDPRN PRN herpes simplex infection 12/03/18
cholecalciferol (vitamin D3) 50 mcg (2,000 unit) tablet (Vitamin D3) 50 mcg PO DAILY Supplement 05/09/22
aspirin 81 mg chewable tablet 81 mg PO DAILY #30 tabs 05/12/22
atorvastatin 40 mg tablet 40 mg PO QPM #30 tabs 05/12/22
acetaminophen 500 mg tablet 500 mg PO Q6HPRN PRN mild pain 06/17/23
furosemide 20 mg tablet 20 mg PO DAILY Fluid Retention/Swelling 06/17/23
clopidogrel 75 mg tablet 75 mg PO DAILY #30 tabs 01/12/24
pantoprazole 40 mg tablet,delayed release 40 mg PO DAILY #30 tabs 01/12/24
collagenase clostridium histo. 250 unit/gram topical ointment (Santyl) 1 applic topical DAILY Right heel wound 01/21/24
hydrocortisone 2.5 % topical cream with perineal applicator (Procto-Med HC) 1 applic [place] DAILYPRN PRN hemorrhoids 01/21/24
white petrolatum 42 % topical ointment (Hydrophor) 1 applic topical DAILY dry skin 01/21/24
Medications Reviewed: Yes
Allergies and Reactions
Patient has Allergies: No
Noted Allergies and Reactions:
Allergy/AdvReac Type Severity Reaction Status Date / Time
No Known Allergies Allergy Verified 04/02/24 09:43
Pertinent Physical Exam
All Other Systems: Negative
Head/Neck: Normal
Lungs: Normal (Bilateral lungs clear to auscultation)
Heart: Normal (RRR, S1-S2)
Abdomen: Normal (Nontender, nondistended)
Extremities: Other (Unable to palpate distal bilateral lower extremity pulses)
Neurological: Other (Patient was max 3 person assist, unable to bear any weight on bilateral lower extremities, she endorses this has been chronic)
Diagnosis / Assessment
Assessment: 83-year-old female with peripheral arterial disease and chronic nonhealing right lower extremity wound
Plan / Procedure
Plan: Will proceed with scheduled right lower extremity angiogram with possible endovascular intervention with Dr. Yovanny Judge III
Anesthesia/Sedation to be done by Anesthesia Provider: Yes
[2024-05-30 09:29] LABS: Hematocrit 37.5 % (37.0-47.0); Hemoglobin 11.9 g/dL (12.0-16.0); Mean Corp Hgb Conc. 31.7 g/dL (33.0-37.0); Mean Corpuscular Hgb 28.3 pg (27.0-31.0); Mean Corpuscular Volume 89.1 fL (81.0-99.0); Platelet Count 260 10^3/uL (130-400); Red Blood Cell Count 4.21 10^6/uL (4.20-5.40); Red Cell Dist. Width 14.4 % (11.5-14.5)
[2024-05-30 09:35] LABS: INR 0.96; PT 13.1 Sec (11.4-14.6)
[2024-05-30] MEDS: NSS 500 IV (09:35)
[2024-05-30 09:36] LABS: APTT 29.2 Sec (23.4-35.0)
[2024-05-30 09:44] LABS: Blood Urea Nitrogen 22 mg/dl (7-17); Calcium 10.1 mg/dl (8.4-10.2); Carbon Dioxide 29 mmol/L (22-30); Chloride 106 mmol/L (98-107); Estimated Creatinine Clearance 59 ml/min; Glucose 91 mg/dl (70-99); Potassium 4.3 mmol/L (3.5-5.1); Sodium 142 mmol/L (135-145); eGFR > 60.00
--- NOTE | 2024-05-30 10:28 | W.SUR.POST ---
Surgical Immediate Post Op
Note
Pre Op Diagnosis: PAD
Post Op Diagnosis: PAD
Procedure Performed: RLE diagnostic angio via antegrade access
Primary Surgeon: Yovanny Judge
Secondary Surgeons: Alex Hickey
Anesthesia: see anesthesia flowsheet
Estimated Blood Loss: 2cc
Fluids: see anesthesia flowsheet
Drains/Shunts: none
Specimens/Cultures: none
Doppler/Duplex/Angio (Y/N): yes
Complications: none
Operative Findings: RLE diagnostic angio via R SFA antegrade access. Diagnostic angio with very mild, non-flow limiting stenosis proximal to popliteal stent and mild, non-flow limiting stenosis of TP trunk. 3-vessel runoff with good flow through PT
to heel.
--- NOTE | 2024-05-30 10:46 | OR.RPT ---
Operative Report
Operative Report
Date of Operation: 05/30/2024
Pre Op Diagnosis:
1. [place] artery atherosclerosis with right heel ulceration
2. Nonhealing right heel ulcer
3. Right knee contracture
Post Op Diagnosis:
1. [place] artery atherosclerosis with right heel ulceration
2. Nonhealing right heel ulcer
3. Right knee contracture
Procedure:
1.) Diagnostic right lower extremity arteriogram
2.) Introduce wire/catheter to superficial femoral artery
3.) Ultrasound-guided percutaneous ANTEGRADE access to the right femoral artery
Surgeon: Yovanny Judge III, MD
Wool Scourer: Alex Hickey MD, PGY4
Anesthesia: Sedation with local
Fluoroscopy:
1.7 min
7 mGy
1.71 Gy.cm2
Complications: None
Estimated Blood Loss: Less than 10 cc
History and Indications for Procedure: 83-year-old female with previous endovascular intervention of the right lower extremity. Has a persistent nonhealing right heel wound.
Procedure in Detail: Janell Kahn was correctly identified and placed supine on the operating table. After adequate induction of anesthesia the bilateral groins were prepped and draped in the usual sterile fashion. A timeout was performed with the
nursing and anesthesia staff confirming the patient's identity as well as the nature and laterality of the procedure.
The right common femoral artery was identified under ultrasound guidance. The artery was patent. The superior and inferior aspects of the femoral head were identified with radiographic guidance and marked at the skin level. The proposed puncture
site was infiltrated with local anesthesia. Under ultrasound guidance we accessed the right superficial femoral artery origin with a micropuncture needle and upsized to a 5 Fr sheath over a Bentson wire.
A diagnostic right lower extremity arteriogram was then performed which demonstrated the following:
RIGHT LOWER EXTREMITY:
Superficial femoral artery: Patent. Brisk flow. Mild stenosis identified in the distal SFA
Popliteal artery: Patent. Widely patent Supera stent. No stenosis identified.
Anterior tibial artery: Occluded
Tibioperoneal trunk: Patent. Mild focal stenosis
Peroneal artery: Patent to the ankle
Posterior tibial artery: Patent as the dominant tibial artery runoff. No significant stenosis identified. Flow to the heel identified. Plantar branches in the foot patent.
Satisfied with this diagnostic result we concluded the procedure. The wire was removed. The sheath was pulled and direct manual pressure was held over the puncture site until hemostasis was achieved. A sterile dressing was applied.
The patient tolerated the procedure well and was taken to the recovery area in stable condition.
Attestation: I was present and responsible for the entire procedure.
Signed:
Yovanny Judge III, MD
[facility]
[phone] (qtra)
[2024-05-30] MEDS: MORPHINE SULFATE 1 MG IV (11:31)
--- NOTE | 2024-05-30 15:49 | PTCARENOTE ---
1400: B/L heel lift boots placed with immediate relief as per pt. Will continue to monitor.
At 1440, pt report called to JAMAL Estrella, at [facility]. All discharge info provided to JAMAL Estrella, pt, and pts daughter, Geena. All questions addressed. All verbalize understanding.
== END 2024-05-30 15:20 ==
LOC: CATH 09:07
PROVIDERS: ATTENDING PHYSICIAN Surgery Vascular Surgery; PRIMARYCARE PHYSICIAN Family Medicine
DX: I70.234 Atherosclerosis of native arteries of right leg with ulceration of heel and midfoot (principal); L97.419 Non-pressure chronic ulcer of right heel and midfoot with unspecified severity; E78.5 Hyperlipidemia, unspecified; M24.561 Contracture, right knee; M81.0 Age-related osteoporosis without current pathological fracture; Z85.528 Personal history of other malignant neoplasm of kidney; Z90.5 Acquired absence of kidney; I25.10 Atherosclerotic heart disease of native coronary artery without angina pectoris; Z79.02 Long term (current) use of antithrombotics/antiplatelets; Z79.82 Long term (current) use of aspirin; Z95.5 Presence of coronary angioplasty implant and graft
CPT/HCPCS: 36245; 75710; 80048; 85027; 85610; 85730; C1769; C1894; Q9967

== ENCOUNTER → 2024-06-06 10:51 | Outpatient (REF) | payer MEDICARE, OTHER, SELFPAY | LOC: WOUND 10:51 | PROVIDERS: ATTENDING PHYSICIAN Surgery; FAMILY PHYSICIAN Family Medicine | DX: L89.613 Pressure ulcer of right heel, stage 3 (principal); I73.9 Peripheral vascular disease, unspecified; I87.2 Venous insufficiency (chronic) (peripheral); K76.89 Other specified diseases of liver; G72.41 Inclusion body myositis [IBM]; I25.10 Atherosclerotic heart disease of native coronary artery without angina pectoris; K21.9 Gastro-esophageal reflux disease without esophagitis; Z90.5 Acquired absence of kidney | CPT/HCPCS: 11042 ==

== ENCOUNTER → 2024-06-23 13:33 | Outpatient (REF) | payer MEDICARE, OTHER, SELFPAY | LOC: WOUND 13:33 | PROVIDERS: ATTENDING PHYSICIAN Surgery; FAMILY PHYSICIAN Family Medicine | DX: L89.613 Pressure ulcer of right heel, stage 3 (principal); I73.9 Peripheral vascular disease, unspecified; I87.2 Venous insufficiency (chronic) (peripheral); K76.89 Other specified diseases of liver; G72.41 Inclusion body myositis [IBM]; I25.10 Atherosclerotic heart disease of native coronary artery without angina pectoris; S82.141A Displaced bicondylar fracture of right tibia, initial encounter for closed fracture; K21.9 Gastro-esophageal reflux disease without esophagitis; X58.XXXA Exposure to other specified factors, initial encounter | CPT/HCPCS: 11042 ==

== ENCOUNTER → 2024-07-07 10:48 | Outpatient (REF) | payer MEDICARE, OTHER, SELFPAY | LOC: WOUND 10:48 | PROVIDERS: ATTENDING PHYSICIAN Surgery; FAMILY PHYSICIAN Internal Medicine | DX: L89.613 Pressure ulcer of right heel, stage 3 (principal); I73.9 Peripheral vascular disease, unspecified; I87.2 Venous insufficiency (chronic) (peripheral); G72.41 Inclusion body myositis [IBM]; I25.10 Atherosclerotic heart disease of native coronary artery without angina pectoris; K21.9 Gastro-esophageal reflux disease without esophagitis; S82.141A Displaced bicondylar fracture of right tibia, initial encounter for closed fracture; Z90.5 Acquired absence of kidney; X58.XXXA Exposure to other specified factors, initial encounter | CPT/HCPCS: 11042 ==

== ENCOUNTER → 2024-07-16 13:50 | Outpatient (REF) | payer MEDICARE, OTHER, SELFPAY | LOC: RAD 13:50 | PROVIDERS: ATTENDING PHYSICIAN Surgery; FAMILY PHYSICIAN Family Medicine | DX: L89.613 Pressure ulcer of right heel, stage 3 (principal) | CPT/HCPCS: 73700 ==

== ENCOUNTER → 2024-07-29 14:46 | Outpatient (REF) | payer MEDICARE, OTHER, SELFPAY | LOC: WOUND 14:46 | PROVIDERS: ATTENDING PHYSICIAN Surgery; FAMILY PHYSICIAN Internal Medicine | DX: L89.613 Pressure ulcer of right heel, stage 3 (principal); L89.310 Pressure ulcer of right buttock, unstageable; I73.9 Peripheral vascular disease, unspecified; I87.2 Venous insufficiency (chronic) (peripheral); K76.89 Other specified diseases of liver; G72.41 Inclusion body myositis [IBM]; Z90.5 Acquired absence of kidney; I25.10 Atherosclerotic heart disease of native coronary artery without angina pectoris; S82.141A Displaced bicondylar fracture of right tibia, initial encounter for closed fracture; K21.9 Gastro-esophageal reflux disease without esophagitis; X58.XXXA Exposure to other specified factors, initial encounter | CPT/HCPCS: 99213 ==

== ENCOUNTER → 2024-08-15 13:42 | Outpatient (REF) | payer MEDICARE, OTHER, SELFPAY | LOC: RAD 13:42 | PROVIDERS: ATTENDING PHYSICIAN Surgery; FAMILY PHYSICIAN Family Medicine | DX: L89.613 Pressure ulcer of right heel, stage 3 (principal); I87.2 Venous insufficiency (chronic) (peripheral) | CPT/HCPCS: 93922; 93925; 93971 ==

== ENCOUNTER → 2024-08-18 13:24 | Outpatient (REF) | payer MEDICARE, OTHER, SELFPAY | LOC: WOUND 13:24 | PROVIDERS: ATTENDING PHYSICIAN Surgery; FAMILY PHYSICIAN Family Medicine | DX: L89.613 Pressure ulcer of right heel, stage 3 (principal); L89.310 Pressure ulcer of right buttock, unstageable; I73.9 Peripheral vascular disease, unspecified; I87.2 Venous insufficiency (chronic) (peripheral); K76.89 Other specified diseases of liver; G72.41 Inclusion body myositis [IBM]; I25.10 Atherosclerotic heart disease of native coronary artery without angina pectoris; Z90.5 Acquired absence of kidney; S82.141A Displaced bicondylar fracture of right tibia, initial encounter for closed fracture; K21.9 Gastro-esophageal reflux disease without esophagitis; X58.XXXA Exposure to other specified factors, initial encounter | CPT/HCPCS: 99213 ==

== ENCOUNTER → 2024-09-08 15:01 | Outpatient (REF) | payer MEDICARE, OTHER, SELFPAY | LOC: WOUND 15:01 | PROVIDERS: ATTENDING PHYSICIAN Surgery; FAMILY PHYSICIAN Family Medicine | DX: L89.613 Pressure ulcer of right heel, stage 3 (principal); L89.310 Pressure ulcer of right buttock, unstageable; I73.9 Peripheral vascular disease, unspecified; I87.2 Venous insufficiency (chronic) (peripheral); K76.89 Other specified diseases of liver; G72.41 Inclusion body myositis [IBM]; I25.10 Atherosclerotic heart disease of native coronary artery without angina pectoris; K21.9 Gastro-esophageal reflux disease without esophagitis; S82.141A Displaced bicondylar fracture of right tibia, initial encounter for closed fracture; X58.XXXA Exposure to other specified factors, initial encounter; Z90.5 Acquired absence of kidney | CPT/HCPCS: 99213 ==

== ENCOUNTER 2024-09-30 09:27 | Day surgery (SDC) | payer MEDICARE, OTHER, SELFPAY ==
[2024-09-30] VITALS (17 sets, daily range): BP systolic 86–151; BP diastolic 37–86
[2024-09-30 10:58] LABS: Hematocrit 37.1 % (37.0-47.0); Hemoglobin 11.8 g/dL (12.0-16.0); Mean Corp Hgb Conc. 31.8 g/dL (33.0-37.0); Mean Corpuscular Volume 87.7 fL (81.0-99.0); Platelet Count 289 10^3/uL (130-400); Red Cell Dist. Width 14.6 % (11.5-14.5)
[2024-09-30 11:14] LABS: Blood Urea Nitrogen 21 mg/dl (7-17); Calcium 9.9 mg/dl (8.4-10.2); Carbon Dioxide 28 mmol/L (22-30); Chloride 109 mmol/L (98-107); Glucose 87 mg/dl (70-99); INR 1.01; PT 13.6 Sec (11.4-14.6); Potassium 4.7 mmol/L (3.5-5.1); Sodium 142 mmol/L (135-145); eGFR > 60.00
[2024-09-30 11:15] LABS: APTT 30.2 Sec (23.4-35.0)
[2024-09-30] MEDS: NSS 500 IV (12:36)
--- NOTE | 2024-09-30 17:52 | OR.RPT ---
Operative Report
Operative Report
Date of Operation: 09/30/2024
Pre Op Diagnosis: Nonhealing right heel ulcer
Post Op Diagnosis: Nonhealing right heel ulcer
Procedure:
1. Selective catheterization of second-order lower extremity artery
2. Diagnostic aortobiiliac arteriogram
3. Diagnostic right lower extremity arteriogram
4. Ultrasound guided percutaneous access to the left common femoral artery
Surgeon: Yovanny Judge III, MD
Boarder Steam: Terrance Gonzalez MD PGY-6
Anesthesia: Sedation with local
Fluoroscopy:
7.3 min
64 mGy
31.11 gy.cm2
Complications: None
Estimated Blood Loss: Less than 20 cc
History and Indications for Procedure: 83-year-old female with multiple medical comorbidities who has a persistent nonhealing right heel ulcer. She has a knee contracture and has previously undergone lower extremity endovascular interventions.
Procedure in Detail: Janell Kahn was correctly identified and placed supine on the operating table. After adequate induction of anesthesia the bilateral groins were prepped and draped in the usual sterile fashion. A timeout was performed with the
nursing and anesthesia staff confirming the patient's identity as well as the nature and laterality of the procedure.
The left common femoral artery was identified under ultrasound guidance. The artery was patent. The superior and inferior aspects of the femoral head were identified with radiographic guidance and marked at the skin level. The proposed puncture site
was infiltrated with local anesthesia. Under ultrasound guidance we accessed the left common femoral artery with a micropuncture needle and upsized to a 5 Fr sheath over a Bentson wire. The wire and a [employer] hook flush catheter were advanced into
the distal abdominal aorta and a diagnostic aorto-biiliac arteriogram was performed:
AORTO-ILIAC ARTERIOGRAM:
Aorta: Peripherally calcified abdominal aortic aneurysm is identified. No significant stenosis identified.
Right common iliac artery: Patent with no significant stenosis identified
Right external iliac artery: Patent with no significant stenosis identified
Left common iliac artery: Patent with no significant stenosis identified
Left external iliac artery: Patent with no significant stenosis identified
Under roadmap guidance using a Glidewire and the [employer] hook catheter we selected the right common iliac artery and then the external iliac artery. The wire was advanced into the right common femoral artery. A catheter was tracked up and over
the aortic bifurcation and placed in the right common femoral artery. A diagnostic right lower extremity arteriogram was then performed which demonstrated the following:
RIGHT LOWER EXTREMITY:
Common femoral artery: Patent with no significant stenosis identified
Profunda femoral artery: Patent with no significant stenosis identified
Superficial femoral artery: Patent with no significant stenosis identified
Popliteal artery: Patent. Mild stenosis above-knee popliteal artery. Patent Supera stent behind the knee with no evidence of in-stent restenosis. Patent below-knee popliteal artery with no stenosis identified.
Anterior tibial artery: Patent proximally but occluded distally.
Tibioperoneal trunk: Patent
Peroneal artery: Patent to the ankle
Posterior tibial artery: Patent as the dominant tibial artery runoff. No stenosis identified. Brisk flow throughout. Crosses the ankle to form plantar branches.
Satisfied with this result we concluded the procedure. The catheter was removed. The sheath was secured in place with the plan to pull it in the recovery room.
The patient tolerated the procedure well and was taken to the recovery area in stable condition.
Attestation: I was present and responsible for the entire procedure.
Signed:
Yovanny Judge III, MD
Vascular Surgery
[facility]
== END 2024-09-30 19:14 | disposition home or self-care (01) ==
LOC: CATH 09:27
PROVIDERS: ATTENDING PHYSICIAN Surgery Vascular Surgery; PRIMARYCARE PHYSICIAN Family Medicine
DX: I71.40 Abdominal aortic aneurysm, without rupture, unspecified (principal); I70.234 Atherosclerosis of native arteries of right leg with ulceration of heel and midfoot; L97.419 Non-pressure chronic ulcer of right heel and midfoot with unspecified severity; Z87.891 Personal history of nicotine dependence; Z79.02 Long term (current) use of antithrombotics/antiplatelets; Z79.82 Long term (current) use of aspirin; Z79.899 Other long term (current) drug therapy
CPT/HCPCS: 36246; 75710; 75625; 80048; 85027; 85610; 85730; 93005; C1769; C1894; Q9967

== ENCOUNTER → 2024-10-17 14:49 | Outpatient (REF) | payer MEDICARE, OTHER, SELFPAY | LOC: WOUND 14:49 | PROVIDERS: ATTENDING PHYSICIAN Surgery; FAMILY PHYSICIAN Family Medicine | DX: L89.613 Pressure ulcer of right heel, stage 3 (principal); I73.9 Peripheral vascular disease, unspecified; I87.2 Venous insufficiency (chronic) (peripheral); K76.89 Other specified diseases of liver; G72.41 Inclusion body myositis [IBM]; Z90.5 Acquired absence of kidney; I25.10 Atherosclerotic heart disease of native coronary artery without angina pectoris; K21.9 Gastro-esophageal reflux disease without esophagitis; S82.141A Displaced bicondylar fracture of right tibia, initial encounter for closed fracture; X58.XXXA Exposure to other specified factors, initial encounter | CPT/HCPCS: 11042 ==

== ENCOUNTER → 2024-11-06 08:17 | Outpatient (REF) | payer MEDICARE, OTHER, SELFPAY | LOC: WOUND 08:17 | PROVIDERS: ATTENDING PHYSICIAN Surgery; FAMILY PHYSICIAN Family Medicine | DX: L89.613 Pressure ulcer of right heel, stage 3 (principal); I73.9 Peripheral vascular disease, unspecified; I87.2 Venous insufficiency (chronic) (peripheral); K76.89 Other specified diseases of liver; G72.41 Inclusion body myositis [IBM]; I25.10 Atherosclerotic heart disease of native coronary artery without angina pectoris; S82.141A Displaced bicondylar fracture of right tibia, initial encounter for closed fracture; Z90.5 Acquired absence of kidney; K21.9 Gastro-esophageal reflux disease without esophagitis; X58.XXXA Exposure to other specified factors, initial encounter | CPT/HCPCS: 11042 ==

== ENCOUNTER → 2024-11-21 14:13 | Outpatient (REF) | payer MEDICARE, OTHER, SELFPAY | LOC: WOUND 14:13 | PROVIDERS: ATTENDING PHYSICIAN Surgery; FAMILY PHYSICIAN Family Medicine | DX: L89.613 Pressure ulcer of right heel, stage 3 (principal); I73.9 Peripheral vascular disease, unspecified; I87.2 Venous insufficiency (chronic) (peripheral); K76.89 Other specified diseases of liver; G72.41 Inclusion body myositis [IBM]; Z90.5 Acquired absence of kidney; I25.10 Atherosclerotic heart disease of native coronary artery without angina pectoris; S82.141A Displaced bicondylar fracture of right tibia, initial encounter for closed fracture; K21.9 Gastro-esophageal reflux disease without esophagitis; X58.XXXA Exposure to other specified factors, initial encounter | CPT/HCPCS: 99213 ==

== ENCOUNTER → 2024-12-08 13:14 | Outpatient (REF) | payer MEDICARE, OTHER, SELFPAY | LOC: WOUND 13:14 | PROVIDERS: ATTENDING PHYSICIAN Surgery; FAMILY PHYSICIAN Family Medicine | DX: L89.613 Pressure ulcer of right heel, stage 3 (principal); I73.9 Peripheral vascular disease, unspecified; I87.2 Venous insufficiency (chronic) (peripheral); K76.89 Other specified diseases of liver; G72.41 Inclusion body myositis [IBM]; Z90.5 Acquired absence of kidney; I25.10 Atherosclerotic heart disease of native coronary artery without angina pectoris; K21.9 Gastro-esophageal reflux disease without esophagitis; S82.141S Displaced bicondylar fracture of right tibia, sequela; X58.XXXS Exposure to other specified factors, sequela | CPT/HCPCS: 11042 ==

== ENCOUNTER → 2024-12-25 13:16 | Outpatient (REF) | payer MEDICARE, OTHER, SELFPAY | LOC: WOUND 13:16 | PROVIDERS: ATTENDING PHYSICIAN Surgery; FAMILY PHYSICIAN Family Medicine | DX: L89.613 Pressure ulcer of right heel, stage 3 (principal); I73.9 Peripheral vascular disease, unspecified; I87.2 Venous insufficiency (chronic) (peripheral); K76.89 Other specified diseases of liver; G72.41 Inclusion body myositis [IBM]; I25.10 Atherosclerotic heart disease of native coronary artery without angina pectoris; K21.9 Gastro-esophageal reflux disease without esophagitis; S82.141S Displaced bicondylar fracture of right tibia, sequela; X58.XXXS Exposure to other specified factors, sequela; Z90.5 Acquired absence of kidney | CPT/HCPCS: 11042 ==

== ENCOUNTER → 2025-01-09 10:53 | Outpatient (REF) | payer MEDICARE, OTHER, SELFPAY | LOC: WOUND 10:53 | PROVIDERS: ATTENDING PHYSICIAN Surgery; FAMILY PHYSICIAN Family Medicine | DX: L89.613 Pressure ulcer of right heel, stage 3 (principal); I73.9 Peripheral vascular disease, unspecified; I87.2 Venous insufficiency (chronic) (peripheral); K76.89 Other specified diseases of liver; G72.41 Inclusion body myositis [IBM]; I25.10 Atherosclerotic heart disease of native coronary artery without angina pectoris; S82.141S Displaced bicondylar fracture of right tibia, sequela; K21.9 Gastro-esophageal reflux disease without esophagitis; X58.XXXS Exposure to other specified factors, sequela; Z90.5 Acquired absence of kidney | CPT/HCPCS: 11042 ==

== ENCOUNTER 2025-01-22 10:37 | Outpatient (REF) | payer MEDICARE, OTHER, SELFPAY | END 2025-01-22 23:59 | disposition home or self-care (01) | LOC: WOUND 10:37 | PROVIDERS: ATTENDING PHYSICIAN Surgery; FAMILY PHYSICIAN Family Medicine | DX: L89.613 Pressure ulcer of right heel, stage 3 (principal); I73.9 Peripheral vascular disease, unspecified; I87.2 Venous insufficiency (chronic) (peripheral); K76.89 Other specified diseases of liver; G72.41 Inclusion body myositis [IBM]; Z90.5 Acquired absence of kidney; I25.10 Atherosclerotic heart disease of native coronary artery without angina pectoris; S82.141S Displaced bicondylar fracture of right tibia, sequela; K21.9 Gastro-esophageal reflux disease without esophagitis | CPT/HCPCS: 11042 ==

== ENCOUNTER → 2025-01-23 12:56 | Outpatient (REF) | payer MEDICARE, OTHER, SELFPAY | LOC: RAD 12:56 | PROVIDERS: ATTENDING PHYSICIAN Registered Nurse; FAMILY PHYSICIAN Family Medicine | DX: I71.40 Abdominal aortic aneurysm, without rupture, unspecified (principal); I77.9 Disorder of arteries and arterioles, unspecified | CPT/HCPCS: 76770; 93922 ==

== ENCOUNTER → 2025-01-28 15:03 | Outpatient (REF) | payer MEDICARE, OTHER, SELFPAY | LOC: HWRCS 15:03 | PROVIDERS: ATTENDING PHYSICIAN Internal Medicine Cardiovascular Disease; FAMILY PHYSICIAN Family Medicine | DX: I21.4 Non-ST elevation (NSTEMI) myocardial infarction (principal); I25.10 Atherosclerotic heart disease of native coronary artery without angina pectoris; I35.0 Nonrheumatic aortic (valve) stenosis; R60.0 Localized edema; R01.1 Cardiac murmur, unspecified | CPT/HCPCS: 93306 ==

== ENCOUNTER 2025-02-16 10:52 | Outpatient (REF) | payer MEDICARE, OTHER, SELFPAY | END 2025-02-16 23:59 | disposition home or self-care (01) | LOC: WOUND 10:52 | PROVIDERS: ATTENDING PHYSICIAN Registered Nurse; FAMILY PHYSICIAN Family Medicine | DX: L89.613 Pressure ulcer of right heel, stage 3 (principal); I73.9 Peripheral vascular disease, unspecified; I87.2 Venous insufficiency (chronic) (peripheral); K76.89 Other specified diseases of liver; G72.41 Inclusion body myositis [IBM]; I25.10 Atherosclerotic heart disease of native coronary artery without angina pectoris; Z90.5 Acquired absence of kidney; K21.9 Gastro-esophageal reflux disease without esophagitis | CPT/HCPCS: 99213 ==

== ENCOUNTER 2025-03-02 14:13 | Outpatient (REF) | payer MEDICARE, OTHER, SELFPAY | END 2025-03-02 23:59 | disposition home or self-care (01) | LOC: WOUND 14:13 | PROVIDERS: ATTENDING PHYSICIAN Registered Nurse; FAMILY PHYSICIAN Family Medicine | DX: L89.613 Pressure ulcer of right heel, stage 3 (principal); I73.9 Peripheral vascular disease, unspecified; I87.2 Venous insufficiency (chronic) (peripheral); K76.89 Other specified diseases of liver; G72.41 Inclusion body myositis [IBM]; Z90.5 Acquired absence of kidney; I25.10 Atherosclerotic heart disease of native coronary artery without angina pectoris; S82.141S Displaced bicondylar fracture of right tibia, sequela; K21.9 Gastro-esophageal reflux disease without esophagitis | CPT/HCPCS: 99213 ==